=== PATIENT | female | born 1955 | race African-American/Black ===

== ENCOUNTER 2018-09-18 11:41 | Inpatient (IN) | payer OTHER ==
--- NOTE | 2018-09-18 16:02 | PDOC ---
History of Present Illness - General Chief Complaint: Weakness Stated Complaint: WEAKNESS, DARK URINE, ABD PAIN 1 MONTH Time Seen by Provider: 09/18/18 15:59 - History of Present Illness Initial Comments: 09/18/18 16:01 63 year old woman with a history of asthma, rzj-woejlit-iomteikeu diabetes, HLD and RSD diagnosed > 10 years ago with upper and lower progressive extremity weakness who presents with worsening ability to ambulate over 1month. Per the patient has been stumbling with gait worsening over the past 4 months and he "got sick of seeing her like that." The patient is planning to see her PCP Dr. Medina in November. The patient denies chest pain, shortness of breath, recent travel, recent illness, dysuria, hematuria, abdominal pain. The patient has no other complaints at bedside. PCP: Adam Past History - Past Medical History Allergies/Adverse Reactions: Allergies Allergy/AdvReac Type Severity Reaction Status Date / Time egg [Egg] Allergy Verified 09/18/18 11:47 oxycodone [Oxycodone] Allergy Verified 09/18/18 11:47 Eggs Allergy Uncoded 09/18/18 11:47 Home Medications: Ambulatory Orders Metformin HCl [Glucophage] 500 mg PO BID #0 tablet 11/16/11 Tizanidine HCl [Zanaflex (Nf) -] 4 mg PO TID #0 tablet 11/16/11 Amitriptyline HCl [Elavil -] 50 mg PO DAILY 09/18/18 Cetirizine HCl [All Day Allergy] 10 mg PO DAILY 09/18/18 Simvastatin 40 mg PO DAILY 09/18/18 Pregabalin [Lyrica -] 150 mg PO BID 09/20/18 Asthma: Yes COPD: No Diabetes: Yes Hypercholesterolemia: Yes - Surgical History Neurologic Surgery: Yes (neural stim. removed 3years) - Suicide/Smoking/Psychosocial Hx Smoking Status: No Smoking History: Current every day smoker Have you smoked in the past 12 months: Yes Number of Cigarettes Smoked Daily: 10 Information on smoking cessation initiated: Yes Hx Alcohol Use: No Drug/Substance Use Hx: No Substance Use Type: None Hx Substance Use Treatment: No *Physical Exam - Vital Signs Last Vital Signs Temp Pulse Resp BP Pulse Ox 97.6 F 93 H 19 115/67 96 09/18/18 11:43 09/18/18 11:43 09/18/18 11:43 09/18/18 11:43 09/18/18 11:43 - Physical Exam Comments: 09/18/18 17:23 GENERAL: Awake, alert, and fully oriented, in no acute distress HEAD: No signs of trauma, normocephalic, atraumatic EYES: PERRLA, EOMI, sclera anicteric, conjunctiva clear ENT: oropharynx clear without exudates. Moist mucosa, + slight tongue fasciulations notes NECK: Normal ROM, supple LUNGS: No distress, speaks full sentences, clear to auscultation bilaterally HEART: Regular rate and rhythm, normal S1 and S2, no murmurs, rubs or gallops, peripheral pulses normal and equal bilaterally. ABDOMEN: Soft, nontender, normoactive bowel sounds. No guarding, no rebound. No masses, distended but baseline per patient EXTREMITIES : Normal inspection, Normal range of motion, no edema. No clubbing or cyanosis. decreased muscle tone in upper extremities L > R and slightly decreased in lower extremities, nontender to palpation 2/5 strength throughout, 2+ reflexes, no DTR in R patellar, pronator drift R > L stumbling gait with inability to hold herself without assistance of NEUROLOGICAL: Cranial nerves II through XII grossly intact. Normal speech, no focal sensorimotor deficits SKIN: Warm, Dry, normal turgor, no rashes or lesions noted Moderate Sedation - Procedure Monitoring Vital Signs: Procedure Monitoring Vital Signs Temperature 97.6 F 09/18/18 11:43 Pulse Rate 93 H 09/18/18 11:43 Respiratory Rate 19 09/18/18 11:43 Blood Pressure 115/67 09/18/18 11:43 O2 Sat by Pulse Oximetry (%) 96 09/18/18 11:43 ED Treatment Course - LABORATORY CBC & Chemistry Diagram: 09/28/18 06:30 09/28/18 06:30 Medical Decision Making - Medical Decision Making 09/18/18 17:15 63 year old woman with a history of asthma, bnr-kzsjith-bvdqphshg diabetes, HLD and RSD diagnosed > 10 years ago with upper and lower progressive extremity weakness who presents with worsening ability to ambulate over 1month. Per the patient has been stumbling with gait and he "got sick of seeing her like that." The patient is planning to see her PCP Dr. Medina in November. The patient denies chest pain, shortness of breath, recent travel, recent illness, dysuria, hematuria, abdominal pain. The patient has no other complaints at bedside. ED Course: Consider RSD however typically associated with pain/burning symptom which the patient does not complain of. ALS possible although progression of symptoms inconsistent and patient without difficulties with speaking and swallowing. Mysthenia gravis guillian barre statin rhabdomyolysis psychogenic cbc, cmp, trop, ekg, ck, ua, ucx labwork unremarkable Spoke to Dr. Campuzano who agrees with LP and head CT. Rec consult to [place]. Patient admitted to medicine. 09/18/18 19:18 Dr. Colón contacted will come see patient in AM *DC/Admit/Observation/Transfer Diagnosis at time of Disposition: Weakness - Referrals - Patient Instructions - Post Discharge Activity
--- NOTE | 2018-09-18 16:21 | PDOC ---
Attending Attestation - HPI HPI: 09/18/18 18:22 The patient is a 63 year old female with a past medical history of asthma, non insulin dependent diabetes, HLD, and RSD here today for evaluation of worsening lower extremity weakness. The patients reports that her lower extremity weakness has been going on for a while but has been getting worse in the past 3-4 months. The patient reports that her right leg weakness causes her to stumble and lose balance and is unable to walk long distances. She also notes occasional abdominal cramping and dark urine which is now bright. Patient denies headache, lightheadedness. Denies fever, chills. Denies chest pain, shortness of breath. Denies nausea, vomiting, diarrhea. Denies lower extremity edema. Allergies: egg, oxycodone PCP: Kan Medina - Medical Decision Making 09/18/18 18:22 Documentation prepared by MARCO A Jain, acting as medical dermatologist for Maxwell Cummings MD. <Yeyo Stone - Last Filed: 09/18/18 18:22> - Resident Resident Name: Laura Conte - ED Attending Attestation I have performed the following: I have examined & evaluated the patient, The case was reviewed & discussed with the resident, I agree w/resident's findings & plan, Exceptions are as noted - Physicial Exam PE: 09/18/18 20:40 Patient is awake and alert, frail-appearing, Normocephalic and atraumatic PERRLA, EOMI, + Tongue fasciculations cta rrr Extensive muscle wasting of the extremities (distal greater than proximal) Cranial nerves II through XII grossly intact; Motor: 4/5 upper extremities bilaterally with weak hand concrete carpenter bilaterally; right upper extremity pronation drift; Right lower extremity: 2/5, with minimal plantar/dorsiflexion of the right foot; left lower extremity: 3/ 5; Babinski untestable on the right, negative on the left; DTRs: decreased b/l - Medical Decision Making 09/18/18 21:03 Patient 63-year-old female who presents with worsening upper and lower extremity weakness for the past 4 months. Physical exam reveals muscle wasting and diffuse weakness which is more pronounced on the right. Decreased DTRs are also noted. CT of head shows no evidence of acute intercranial pathology. Patient may have a chronic demyelinating disease. Will consult neurology. Will order vitamin B-12 level and RPR. There is no indication for emergent MRI or LP at this time all the patient may require additional studies while in patient. <Maxwell Cummings - Last Filed: 09/18/18 21:04>
[2018-09-18 17:04] LABS: BASO % 0.9 % (0-2.0); EOS % 2.7 % (0-4.5); HEMATOCRIT 40.3 % (32.4-45.2); HEMOGLOBIN 14.1 GM/dL (10.7-15.3); LYMPH % 27.4 % (8-40); MCH 30.1 pg (25.7-33.7); MCHC 34.9 g/dl (32.0-36.0); MEAN CELL VOLUME 86.3 fl (80-96); MEAN PLT VOLUME 9.3 fl (7.5-11.1); MONO % 8.1 % (3.8-10.2); NEUT % 60.9 % (42.8-82.8); PLATELET COUNT 231 K/MM3 (134-434); RBC 4.68 M/mm3 (3.60-5.2); RDW 13.8 % (11.6-15.6)
[2018-09-18 18:07] LABS: ALK PHOS 93 U/L (45-117); ANION GAP 8 MMOL/L (8-16); BILIRUBIN,TOTAL 0.3 mg/dL (0.2-1); BLOOD UREA NITROGEN 20 mg/dL (7-18); CALCIUM 9.2 mg/dL (8.5-10.1); CHLORIDE 106 mmol/L (98-107); CO2 25 mmol/L (21-32); CREATININE 0.8 mg/dL (0.55-1.3); GLUCOSE,RANDOM 172 mg/dL (74-106); POTASSIUM 4.1 mmol/L (3.5-5.1); SGOT/AST 16 U/L (15-37); SGPT/ALT 36 U/L (13-61); SODIUM 138 mmol/L (136-145); TOT PROT 7.7 g/dl (6.4-8.2)
[2018-09-18] MEDS ORDERED: SODIUM CHLORIDE 1,000 ML IV STA (18:38)
[2018-09-18 21:59] LABS: URINE APPEARANCE TURBID; URINE BILIRUBIN NEGATIVE (<2.0 mg/dL); URINE COLOR DKYELLOW; URINE GLUCOSE (UA) 1+ (NEGATIVE); URINE KETONE NEGATIVE (NEGATIVE); URINE LEUK ESTERASE 3+ (NEGATIVE); URINE NITRITE POSITIVE (NEGATIVE); URINE PROTEIN 2+ (NEGATIVE)
[2018-09-18 22:05] LABS: EPI CELLS MANY /HPF (FEW); URINE BACTERIA MODERATE /hpf (NONE SEEN); URINE MUCUS MANY
[2018-09-19] MEDS ORDERED: CEFTRIAXONE 1,000 MG in DEXTROSE 5%-WATER - 50 ML IVPB ONE (01:10)
[2018-09-19] MEDS ORDERED: CEFTRIAXONE 1 GM/50 ML BAG ONE (01:12)
[2018-09-19] MEDS ORDERED: AMITRIPTYLINE HCL 50 MG TABLET PO SCH (02:45)
[2018-09-19] MEDS: DEXTROSE 5%-0.45% SALINE 1,000 ML IV SCH (03:18)
[2018-09-19] MEDS: TIZANIDINE HCL 4 MG TABLET PO SCH ×3 (06:06→21:59)
[2018-09-19 06:20] LABS: BASO % 0.8 % (0-2.0); EOS % 2.4 % (0-4.5); HEMATOCRIT 40.4 % (32.4-45.2); HEMOGLOBIN 12.8 GM/dL (10.7-15.3); LYMPH % 27.5 % (8-40); MCH 27.9 pg (25.7-33.7); MCHC 31.7 g/dl (32.0-36.0); MEAN PLT VOLUME 9.6 fl (7.5-11.1); MONO % 9.9 % (3.8-10.2); NEUT % 59.4 % (42.8-82.8); PLATELET COUNT 207 K/MM3 (134-434); RBC 4.59 M/mm3 (3.60-5.2); RDW 13.8 % (11.6-15.6); WHITE BLOOD COUNT 7.3 K/mm3 (4.0-10.0)
[2018-09-19 06:53] LABS: ALBUMIN 3.5 g/dl (3.4-5.0); ALK PHOS 83 U/L (45-117); ANION GAP 5 MMOL/L (8-16); BILIRUBIN,TOTAL 0.2 mg/dL (0.2-1); BLOOD UREA NITROGEN 20 mg/dL (7-18); CALCIUM 8.5 mg/dL (8.5-10.1); CHLORIDE 109 mmol/L (98-107); CO2 25 mmol/L (21-32); CREATININE 0.7 mg/dL (0.55-1.3); GLUCOSE,RANDOM 167 mg/dL (74-106); POTASSIUM 4.4 mmol/L (3.5-5.1); SGOT/AST 21 U/L (15-37); SGPT/ALT 36 U/L (13-61); SODIUM 138 mmol/L (136-145)
[2018-09-19] MEDS ORDERED: metFORMIN HCL 500 MG TABLET (FP) ONE (08:39)
[2018-09-19] MEDS ORDERED: INSULIN REGULAR HUMAN 100 UNITS/ML *VIAL ONE (08:40)
[2018-09-19] MEDS: INSULIN SLIDING SCALE (NOVOLOG) 1 VIAL SQ SCH ×4 (08:43→21:57)
[2018-09-19] MEDS: metFORMIN HCL 500 MG TABLET (FP) PO SCH ×2 (08:43→18:06)
[2018-09-19] MEDS ORDERED: PREGABALIN 50 MG CAPSULE PO SCH (10:00)
[2018-09-19] MEDS: LORATADINE 10 MG TABLET PO SCH (10:09)
[2018-09-19] MEDS: AMITRIPTYLINE HCL 25 MG TABLET (FP) PO SCH (10:10)
--- NOTE | 2018-09-19 12:46 | EKG ---
Test Reason : Blood Pressure : / mmHG Vent. Rate : 077 BPM Atrial Rate : 077 BPM P-R Int : 152 ms QRS Dur : 088 ms QT Int : 370 ms P-R-T Axes : 055 031 010 degrees QTc Int : 418 ms NORMAL SINUS RHYTHM MINIMAL VOLTAGE CRITERIA FOR LVH, MAY BE NORMAL VARIANT BORDERLINE ECG WHEN COMPARED WITH ECG OF 12-NOV-2011 16:40, ST NO LONGER DEPRESSED IN INFERIOR LEADS ST NO LONGER DEPRESSED IN LATERAL LEADS T WAVE INVERSION LESS EVIDENT IN INFERIOR LEADS Confirmed by ROBERTO MUSTAFA MD ([id number]) on 09/19/2018 12:46:30 PM Referred By: Confirmed By:ROBERTO MUSTAFA MD
--- NOTE | 2018-09-19 17:33 | HP ---
Admitting History and Physical - Admission History of Present Illness: 63 year old woman with a history of asthma, fmz-awabozc-mqfsjibry diabetes, HLD and RSD diagnosed > 10 years ago with upper and lower progressive extremity weakness who presents with worsening ability to ambulate over 1month. Per the patient has been stumbling with gait worsening over the past 4 months and he "got sick of seeing her like that." The patient is planning to see her PCP Dr. Medina in November. The patient denies chest pain, shortness of breath, recent travel, recent illness, dysuria, hematuria, abdominal pain. The patient has no other complaints at bedside. - Smoking History Smoking history: Current every day smoker Have you smoked in the past 12 months: Yes Aproximately how many cigarettes per day: 10 - Alcohol/Substance Use Hx Alcohol Use: No Home Medications - Allergies Allergies/Adverse Reactions: Allergies Allergy/AdvReac Type Severity Reaction Status Date / Time egg [Egg] Allergy Verified 09/18/18 11:47 oxycodone [Oxycodone] Allergy Verified 09/18/18 11:47 Eggs Allergy Uncoded 09/18/18 11:47 - Home Medications Home Medications: Ambulatory Orders Metformin HCl [Glucophage] 500 mg PO BID #0 tablet 11/16/11 Tizanidine HCl [Zanaflex (Nf) -] 4 mg PO TID #0 tablet 11/16/11 Amitriptyline HCl [Elavil -] 50 mg PO DAILY 09/18/18 Cetirizine HCl [All Day Allergy] 10 mg PO DAILY 09/18/18 Simvastatin 40 mg PO DAILY 09/18/18 Pregabalin [Lyrica -] 150 mg PO BID 09/20/18 Physical Examination Vital Signs: Vital Signs Temperature 98.1 F 09/19/18 15:52 Pulse Rate 84 09/19/18 15:52 Respiratory Rate 18 09/19/18 15:52 Blood Pressure 151/76 09/19/18 15:52 O2 Sat by Pulse Oximetry (%) 100 09/19/18 15:50 Labs: CBC, BMP 09/19/18 05:30 09/19/18 05:30
--- NOTE | 2018-09-19 18:53 | CONS ---
DATE OF CONSULTATION: 09/19/2018 HISTORY OF PRESENT ILLNESS: The patient is a 73-year-old woman who is known from prior admission to [facility] undergoing electrodiagnostic studies back on October 03, 2017, which were extremely limited due to edema. The patient did have some myopathic recruitment and muscle membrane instability, which with fairly normal sensory conduction, considering the edema. Patient states in the interim she did not undergo any muscle biopsy, but was doing much better until recently. Per her , she has been having declining function for some time. She notices tightness as well as progressive weakness and has difficulty standing and ambulating. She was taken to [facility], undergoing CT of the head, which showed no acute intracranial pathology. The patient has a normal B12 level and her blood work shows slightly elevated BUN to creatinine, but is fairly normal in terms of CBC as well as her electrolytes. She has a normal TSH. Patient is having extreme difficulty getting up and ambulating. Electrodiagnostic studies were ordered due to the progressive weakness. Again, previous studies were from about a year ago on October 03. Per the , she has fallen multiple times at home. Last CBC on September 19 showed a normal WBC at 7.3, hemoglobin 12.8, platelet count 208. Her chemistries showed elevated BUN of 20, creatinine of 0.7, but normal CO2 of 25. Normal sodium at 138, normal potassium at 4.4. TSH was normal at 1.21. Vitamin B12 was normal at 513. PAST MEDICAL AND SURGICAL HISTORY: Noninsulin-dependent diabetes, hyperlipidemia, RSD, asthma. SOCIAL HISTORY: Lives with her . Premorbidly she was ambulatory, but refuses to use a walker. Sometimes she uses a cane, but is extremely unsteady. REVIEW OF SYSTEMS: No headache. No lightheadedness, dizziness. No blurry vision or double vision. No nausea or vomiting, difficulty swallowing, difficulty chewing. No chest pain or shortness of breath. She has abdominal bloating, frequent urination, which may be due to IV fluid hydration. She complains of numbness and tingling in the hands, but this may be more of a tightness. She has progressive weakness. PHYSICAL EXAMINATION: General: Friendly woman, seen sitting, standing, and ambulating. She is in no acute distress. HEENT: Normocephalic, atraumatic. Extraocular muscles appear intact. Neck: Supple. Abdomen: Swollen, may be possible ascites. Extremities: Without any pitting edema or calf tenderness. Neuromuscular: She has diffuse weakness, but normal sensation. Her gait is steppage and is extremely unsteady, improved with a rolling walker. For results of EMG nerve conduction studies, please refer to the report for details. OVERALL IMPRESSION: 1. This study was compared to previous study dated October 03, 2017. 2. Compared to that study, this study is significantly improved, both in sensory and motor amplitudes as well as resolution of previously noted muscle membrane instability. 3. That being said, there is some myopathic motor units in the proximal, upper more than lower extremities, which could be significant for myopathy. However, the clinical picture does not match this diagnosis, would rule out NUTRITION SERVICES WORKER disorders. 4. Gait disorder. 5. History of diabetes. PLAN/SUGGESTION: 1. Would consider neurologic evaluation. 2. Consider imaging of the brain such as MRI of the brain and cervical and thoracic spines. 3. Physical therapy. 4. DVT prophylaxis until more mobile. 5. Will need either inpatient or extensive outpatient therapy if services can be obtained for home. Thank you for this referral. YUKI CÁRDENAS M.D. [id number] MTDD
--- NOTE | 2018-09-19 21:54 | CONSULT ---
Consult - text type - Consultation Consultation Note: NEUROLOGY CONSULTATION is greatly appreciated: This 63 yo RH woman with h/o DM and Chol is maintained on: Metformin; Pregabalin 50 qd; Tizanidine 4 mg PO TID; Amitriptyline 50 mg PO HS ; Cetirizine; and Simvastatin 40 mg. She relates h/o slowly progressive gait dysfunction since 2000 with numbness, tingling, pain, and coldness in her hands and feet. Has had an electric wheelchair to "go out" since 2005 but has "managed" around her apartment until the last 3-4 weeks. Few years of progressive urinary frequency. Dr. Enrique's consultation and electrodiagnostic studies reviewed and appreciated. Admission labs sig for CK=64 IU and urinary QTW=0511. CT of head (reviewed): Normal ONEL: Nl neck ROM. Normocephalic. NEURO: MS/speech: Normal CN II-XII Normal including tongue strength and bulk. Gag normal. Motor: Isolated weakness and severe atrophy of the right triceps and finger extensors (2/5) and right hip flexors (2/5). The remainder of muscles tested (proximal and distal) are normal or near normal (4+/5-5/5). Increased tone in legs (R>L) with extremely brisk reflexes except triceps (absent on the R reduced on the left). Biceps spreads to finger flexors. Crossed adduction at the knees. Brisk AJ's. Bilateral Babinskis. Coord: No FTN dystaxia Sensory: Reduced vibration and position in both legs (L>>R). Romberg + Gait: B/L circumduction R>>L. IMP: Cervical Myelopathy. Probably around the C6, C7 level with C7 Radiculopathy on the right. R/O Cervical syrinx. Spastic paraparesis Neurogenic bladder. Recent worsening due to Toxic-metabolic encephalopathy due to UTI. SUGGEST: MRI of Cervical spine (C-/C+) Check B12, SAMUEL, ESR, CRP, HTLV-1 Please continue antibiotics for UTI. Bladder Ultrasound. Thank you very much, Shadi Colón MD
[2018-09-19] MEDS: ATORVASTATIN CA 20 MG TABLET (FP) PO SCH (21:58)
[2018-09-19] MEDS ORDERED: PREGABALIN 100 MG CAPSULE PO ONE (22:15)
[2018-09-19] MEDS ORDERED: cefTRIAXone SODIUM 1 GM VIAL ONE (22:57)
[2018-09-19] MEDS ORDERED: DEXTROSE 5%-WATER - 50 ML IVPB ONE (22:57)
[2018-09-19] MEDS: CEFTRIAXONE 1 GM in DEXTROSE 5%-WATER - 50 ML IVPB SCH (23:02)
[2018-09-19] MEDS ORDERED: ACETAMINOPHEN 325 MG TABLET (FP) PO ONE (23:30)
[2018-09-20] MEDS: DEXTROSE 5%-0.45% SALINE 1,000 ML IV SCH ×2 (02:41→17:00)
[2018-09-20] MEDS: TIZANIDINE HCL 4 MG TABLET PO SCH ×3 (05:52→21:35)
[2018-09-20] MEDS: INSULIN SLIDING SCALE (NOVOLOG) 1 VIAL SQ SCH ×4 (06:04→21:33)
[2018-09-20] MEDS: metFORMIN HCL 500 MG TABLET (FP) PO SCH ×2 (06:05→16:59)
[2018-09-20 08:39] LABS: ALBUMIN 3.4 g/dl (3.4-5.0); ALK PHOS 80 U/L (45-117); ANION GAP 6 MMOL/L (8-16); BILIRUBIN,TOTAL 0.2 mg/dL (0.2-1); BLOOD UREA NITROGEN 13 mg/dL (7-18); CALCIUM 8.5 mg/dL (8.5-10.1); CHLORIDE 106 mmol/L (98-107); CO2 26 mmol/L (21-32); CREATININE 0.7 mg/dL (0.55-1.3); GLUCOSE,RANDOM 157 mg/dL (74-106); POTASSIUM 3.8 mmol/L (3.5-5.1); SGOT/AST 20 U/L (15-37); SGPT/ALT 34 U/L (13-61); SODIUM 137 mmol/L (136-145); TOT PROT 6.8 g/dl (6.4-8.2)
[2018-09-20] MEDS ORDERED: cefTRIAXone SODIUM 1 GM VIAL ONE (08:48)
[2018-09-20] MEDS ORDERED: DEXTROSE 5%-WATER - 50 ML IVPB ONE (08:48)
[2018-09-20] MEDS ORDERED: PT OWN MED DRAWER 7, Y5N ONE (08:48)
[2018-09-20 09:18] LABS: BASO % 0.5 % (0-2.0); EOS % 2.9 % (0-4.5); HEMOGLOBIN 12.3 GM/dL (10.7-15.3); LYMPH % 36.9 % (8-40); MCH 28.1 pg (25.7-33.7); MCHC 32.3 g/dl (32.0-36.0); MEAN CELL VOLUME 87.1 fl (80-96); MEAN PLT VOLUME 10.4 fl (7.5-11.1); MONO % 9.7 % (3.8-10.2); PLATELET COUNT 144 K/MM3 (134-434); RBC 4.36 M/mm3 (3.60-5.2); RDW 13.2 % (11.6-15.6); WHITE BLOOD COUNT 5.9 K/mm3 (4.0-10.0)
[2018-09-20 09:49] LABS: ERYTHROCYTE SEDIMENTATION RATE 14 mm/hr (0-30)
[2018-09-20] MEDS: AMITRIPTYLINE HCL 25 MG TABLET (FP) PO SCH (09:51)
[2018-09-20] MEDS: LORATADINE 10 MG TABLET PO SCH (09:51)
[2018-09-20] MEDS: PREGABALIN 75 MG CAPSULE PO SCH ×2 (09:51→21:35)
[2018-09-20] MEDS: CEFTRIAXONE 1 GM in DEXTROSE 5%-WATER - 50 ML IVPB SCH (09:51)
[2018-09-20] MEDS: ATORVASTATIN CA 20 MG TABLET (FP) PO SCH (21:35)
[2018-09-20] MEDS ORDERED: ACETAMINOPHEN 325 MG TABLET (FP) PO ONE (21:45)
--- NOTE | 2018-09-20 22:23 | PN ---
Progress Note, Physician - Current Medication List Current Medications: Active Medications Amitriptyline HCl (Elavil -) 50 mg PO DAILY [facility] Last Admin: 09/20/18 09:51 Dose: 50 mg Atorvastatin Calcium (Lipitor -) 20 mg PO HS [facility] Last Admin: 09/20/18 21:35 Dose: 20 mg Ceftriaxone Sodium 1 gm/ (Dextrose) 50 mls @ 100 mls/hr IVPB DAILY [facility]; Protocol Last Admin: 09/20/18 09:51 Dose: 100 mls/hr Insulin Aspart (Novolog Vial Sliding Scale -) 1 vial SQ ACHS [facility]; Protocol Last Admin: 09/20/18 21:33 Dose: Not Given Loratadine (Claritin -) 10 mg PO DAILY [facility] Last Admin: 09/20/18 09:51 Dose: 10 mg Metformin HCl (Glucophage -) 500 mg PO BIDAC [facility] Last Admin: 09/20/18 16:59 Dose: 500 mg Pregabalin (Lyrica -) 150 mg PO BID [facility] Last Admin: 09/20/18 21:35 Dose: 150 mg Tizanidine HCl (Tizanidine Hcl) 4 mg PO TID [facility] Last Admin: 09/20/18 21:35 Dose: 4 mg - Objective Vital Signs: Vital Signs Temperature 98.0 F 09/20/18 14:16 Pulse Rate 84 09/20/18 14:16 Respiratory Rate 16 09/20/18 14:16 Blood Pressure 164/62 09/20/18 14:16 O2 Sat by Pulse Oximetry (%) 100 09/20/18 09:00 Labs: CBC, BMP 09/20/18 06:30 09/20/18 06:30
[2018-09-21] MEDS: TIZANIDINE HCL 4 MG TABLET PO SCH ×3 (06:04→22:08)
[2018-09-21] MEDS: INSULIN SLIDING SCALE (NOVOLOG) 1 VIAL SQ SCH ×4 (06:04→22:09)
[2018-09-21] MEDS: metFORMIN HCL 500 MG TABLET (FP) PO SCH ×2 (06:04→18:16)
[2018-09-21] MEDS ORDERED: cefTRIAXone SODIUM 1 GM VIAL ONE (09:58)
[2018-09-21] MEDS ORDERED: DEXTROSE 5%-WATER - 50 ML IVPB ONE (09:58)
[2018-09-21] MEDS: PREGABALIN 75 MG CAPSULE PO SCH ×2 (10:00→22:07)
[2018-09-21] MEDS: LORATADINE 10 MG TABLET PO SCH (10:01)
[2018-09-21] MEDS: CEFTRIAXONE 1 GM in DEXTROSE 5%-WATER - 50 ML IVPB SCH (10:01)
[2018-09-21] MEDS: AMITRIPTYLINE HCL 25 MG TABLET (FP) PO SCH (10:09)
[2018-09-21] MEDS ORDERED: PT OWN MED DRAWER 7, Y5N ONE ×2 (10:09→20:38)
[2018-09-21] MEDS: DEXAMETHASONE SOD PHOSPHATE 4 MG/1 ML VIAL IVPB SCH ×2 (18:16→22:08)
--- NOTE | 2018-09-21 19:12 | PN ---
Progress Note, Physician - Current Medication List Current Medications: Active Medications Amitriptyline HCl (Elavil -) 50 mg PO DAILY [facility] Last Admin: 09/21/18 10:09 Dose: 50 mg Atorvastatin Calcium (Lipitor -) 20 mg PO HS [facility] Last Admin: 09/20/18 21:35 Dose: 20 mg Dexamethasone Sodium Phosphate (Decadron Injection -) 6 mg IVPB Q6H-IV [facility] Last Admin: 09/21/18 18:16 Dose: 6 mg Ceftriaxone Sodium 1 gm/ (Dextrose) 50 mls @ 100 mls/hr IVPB DAILY [facility]; Protocol Last Admin: 09/21/18 10:01 Dose: 100 mls/hr Insulin Aspart (Novolog Vial Sliding Scale -) 1 vial SQ ACHS [facility]; Protocol Last Admin: 09/21/18 18:21 Dose: Not Given Loratadine (Claritin -) 10 mg PO DAILY [facility] Last Admin: 09/21/18 10:01 Dose: 10 mg Metformin HCl (Glucophage -) 500 mg PO BIDAC [facility] Last Admin: 09/21/18 18:16 Dose: 500 mg Pregabalin (Lyrica -) 150 mg PO BID [facility] Last Admin: 09/21/18 10:00 Dose: 150 mg Tizanidine HCl (Tizanidine Hcl) 4 mg PO TID [facility] Last Admin: 09/21/18 13:38 Dose: 4 mg - Objective Vital Signs: Vital Signs Temperature 97.7 F 09/21/18 09:00 Pulse Rate 70 09/21/18 09:00 Respiratory Rate 18 09/21/18 09:00 Blood Pressure 132/64 09/21/18 09:00 O2 Sat by Pulse Oximetry (%) 95 09/21/18 09:00 Constitutional: Yes: No Distress HENT: Yes: Atraumatic Neck: Yes: Supple Cardiovascular: Yes: Regular Rate and Rhythm Respiratory: Yes: CTA Bilaterally Gastrointestinal: Yes: Normal Bowel Sounds Extremities: Yes: WNL Edema: No Peripheral Pulses WNL: Yes Neurological: Yes: Alert, Oriented Labs: CBC, BMP 09/20/18 06:30 09/20/18 06:30 Problem List - Problems (1) Weakness Assessment/Plan: PHYSICAL THERAPY WAITING NEUROSURGERY CONSULT MRI REPORT REVIEWED Code(s): R53.1 - WEAKNESS (2) Hip pain, bilateral Code(s): M25.551 - PAIN IN RIGHT HIP; M25.552 - PAIN IN LEFT HIP (3) UTI (urinary tract infection) Assessment/Plan: IV ABX CXS NOTED Code(s): N39.0 - URINARY TRACT INFECTION, SITE NOT SPECIFIED Assessment/Plan COVERING FOR
--- NOTE | 2018-09-21 20:06 | PN ---
Progress Note (short form) - Note Progress Note: NEUROSURGERY CONSULT DICTATED Consulted by Dr Vidales h/o DM and hypercholesterolemia has h/o slowly progressive gait dysfunction since 2000 with numbness, tingling, pain, ataxia, and coldness in her hands and feet. Has had an electric wheelchair since 2005 but worsened the past few months. + Losing hand functions/dexterity; worsening neck pain with mid/low back stiffness. Few years of progressive urinary frequency and periodic incontinence. Better since being on decadron since hospitalized. Able to sit up better and urinate better. Less neck pain. EMG done but report not available to me. PE: AF, VSS General- unremarkable CN- intact; Motor- B Deltoid 4+, B hands 1-2, B B/BR/T 3/5 L sided slightly stronger; R LE 2, L LE 4+; Sensation- decreased LT/PP R arm down to leg, decreased distal R > L LE vibratory sensation; DTR- 2+ except decreased R ankle reflex, + R Irene's. MRI C spine- moderate to marked stenosis with osteophyte and calcified disc R > L with moderate cord impingement, broad based disc bulge C4-5 with mild cord impingement; C5-6 R paracentral disc herniation with moderate cord impingement and moderate to marked stenosis; L > R chronic DDD/marked stenosis with cord impingement; myelomalacia C3-4 to C7 most prominent @ C4. Cervical DDD/HNP/osteophytes with marked stenosis and myelomalacia with resultant chronic progressive myelopathy Candidate for multilevel anterior decompression, partial corpectomies, interbody fusion with instrumentation C3-7; may need future posterior decompression Prognosis fair only since pt has been markedly symptomatic since at least 2005 and there is no guarantee of favorable outcome Operative and postop care discussed Pros and cons, potential risks and benefits discussed If surgery is desired pt must quit smoking and have DM under strict control if she is to have any chance of healing the fusion properly Monitor BS and treat accordingly since pt is on steroid All questions answered
[2018-09-21] MEDS: ATORVASTATIN CA 20 MG TABLET (FP) PO SCH (22:07)
[2018-09-22] MEDS: DEXAMETHASONE SOD PHOSPHATE 4 MG/1 ML VIAL IVPB SCH ×4 (03:06→21:32)
[2018-09-22] MEDS: TIZANIDINE HCL 4 MG TABLET PO SCH ×3 (06:21→21:39)
[2018-09-22] MEDS: INSULIN SLIDING SCALE (NOVOLOG) 1 VIAL SQ SCH ×4 (06:21→21:35)
[2018-09-22] MEDS: metFORMIN HCL 500 MG TABLET (FP) PO SCH ×2 (06:21→17:14)
[2018-09-22] MEDS ORDERED: cefTRIAXone SODIUM 1 GM VIAL ONE (09:14)
[2018-09-22] MEDS ORDERED: DEXTROSE 5%-WATER - 50 ML IVPB ONE (09:14)
[2018-09-22] MEDS: CEFTRIAXONE 1 GM in DEXTROSE 5%-WATER - 50 ML IVPB SCH (09:19)
[2018-09-22] MEDS: LORATADINE 10 MG TABLET PO SCH (09:19)
[2018-09-22] MEDS: PREGABALIN 75 MG CAPSULE PO SCH ×2 (09:19→21:33)
[2018-09-22] MEDS ORDERED: PT OWN MED DRAWER 7, Y5N ONE ×2 (09:26→13:30)
[2018-09-22] MEDS: AMITRIPTYLINE HCL 25 MG TABLET (FP) PO SCH (09:28)
--- NOTE | 2018-09-22 12:59 | PN ---
Progress Note (short form) - Note Progress Note: Neurology NEUROLOGY COVERAGE FOR DR. CURRAN 63 y/o F with extensive medical background as documented previously. Yesterday, contacted by radiologist for "critical value" regarding MRI C spine results. Discussed with him and contacted nurse. Started patient on decadron as concern for cord compression and signficant stenosis. NSGY consult requested from Dr. Stephen Rowe, note reviewed and appreciated. Dr. Rowe offered surgical intervention, discussed with patient and this AM at bedside and they are considering options, defer to NSGY regarding intervention. Patient appreciative of management. Active Medications Amitriptyline HCl (Elavil -) 50 mg PO DAILY [facility] Last Admin: 09/22/18 09:28 Dose: 50 mg Atorvastatin Calcium (Lipitor -) 20 mg PO HS [facility] Last Admin: 09/21/18 22:07 Dose: 20 mg Dexamethasone Sodium Phosphate (Decadron Injection -) 6 mg IVPB Q6H-IV [facility] Last Admin: 09/22/18 09:19 Dose: 6 mg Ceftriaxone Sodium 1 gm/ (Dextrose) 50 mls @ 100 mls/hr IVPB DAILY [facility]; Protocol Last Admin: 09/22/18 09:19 Dose: 100 mls/hr Insulin Aspart (Novolog Vial Sliding Scale -) 1 vial SQ ACHS [facility]; Protocol Last Admin: 09/22/18 12:15 Dose: 8 unit Loratadine (Claritin -) 10 mg PO DAILY [facility] Last Admin: 09/22/18 09:19 Dose: 10 mg Metformin HCl (Glucophage -) 500 mg PO BIDAC [facility] Last Admin: 09/22/18 06:21 Dose: 500 mg Pregabalin (Lyrica -) 150 mg PO BID [facility] Last Admin: 09/22/18 09:19 Dose: 150 mg Tizanidine HCl (Tizanidine Hcl) 4 mg PO TID [facility] Last Admin: 09/22/18 06:21 Dose: 4 mg Vital Signs Period Temp Pulse Resp BP Sys/Wong Pulse Ox Last 24 Hr 97.6 F-97.8 F 77-101 20-22 136-160/71-91 95 Gen: Awake, alert, responds to questions Card: RRR, nml S1,S2 Resp: Normal symmetric effort, lungs clear to auscultation Abdomen: Soft, nontender, bowel sounds active Musculoskeletal: Adequate range of motion without significant deformity Head atraumatic and normocephalic CN: PERRL, EOMI intact, no apparent facial droop, no abnormalities in facial sensation, palate elevates, uvula and tongue midline Motor: Atrophy of the right triceps and finger extensors (2/5) and right hip flexors (2/5) Sensory: Reduced sensation to vibration in distal LE Reflexes: 2+ biceps, brachioradialis, patellar, achillies Coordination: Intact on [id number] testing CBCD WBC 5.9 K/mm3 (4.0-10.0) 09/20/18 06:30 RBC 4.36 M/mm3 (3.60-5.2) 09/20/18 06:30 Hgb 12.3 GM/dL (10.7-15.3) 09/20/18 06:30 Hct 38.0 % (32.4-45.2) 09/20/18 06:30 MCV 87.1 fl (80-96) 09/20/18 06:30 MCHC 32.3 g/dl (32.0-36.0) 09/20/18 06:30 RDW 13.2 % (11.6-15.6) 09/20/18 06:30 Plt Count 144 K/MM3 (134-434) D 09/20/18 06:30 MPV 10.4 fl (7.5-11.1) 09/20/18 06:30 CMP Sodium 137 mmol/L (136-145) 09/20/18 06:30 Potassium 3.8 mmol/L (3.5-5.1) 09/20/18 06:30 Chloride 106 mmol/L (98-107) 09/20/18 06:30 Carbon Dioxide 26 mmol/L (21-32) 09/20/18 06:30 Anion Gap 6 MMOL/L (8-16) L 09/20/18 06:30 BUN 13 mg/dL (7-18) 09/20/18 06:30 Creatinine 0.7 mg/dL (0.55-1.3) 09/20/18 06:30 Creat Clearance w eGFR > 60 (>60) 09/20/18 06:30 Random Glucose 157 mg/dL (74-106) H 09/20/18 06:30 Calcium 8.5 mg/dL (8.5-10.1) 09/20/18 06:30 Total Bilirubin 0.2 mg/dL (0.2-1) 09/20/18 06:30 AST 20 U/L (15-37) 09/20/18 06:30 ALT 34 U/L (13-61) 09/20/18 06:30 Alkaline Phosphatase 80 U/L (45-117) 09/20/18 06:30 Total Protein 6.8 g/dl (6.4-8.2) 09/20/18 06:30 Albumin 3.4 g/dl (3.4-5.0) 09/20/18 06:30 CARDIAC ENZYMES Creatine Kinase 64 IU/L (26-192) 09/18/18 16:55 Troponin I < 0.02 ng/ml (0.00-0.05) 09/18/18 16:55 Plan: 63 y/o F with extensive medical background as documented previously. Yesterday, contacted by radiologist for "critical value" regarding MRI C spine results. Discussed with him and contacted nurse. Started patient on decadron as concern for cord compression and signficant stenosis. NSGY consult requested from Dr. Stephen Rowe, note reviewed and appreciated. Dr. Rowe offered surgical intervention, discussed with patient and this AM at bedside and they are considering options, defer to NSGY regarding intervention. Patient appreciative of management. Dr. Curran to follow up in AM, will notify him of updates. Appreciate NSGY consult and insight.
--- NOTE | 2018-09-22 15:10 | CONS ---
DATE OF CONSULTATION: 09/21/2018 CHIEF COMPLAINT: Chronic progressive cervical myelopathy. HISTORY OF PRESENT ILLNESS: The patient is a 63-year-old right-handed female with history of type 2 diabetes and hypercholesterolemia, who complains of chronic neck pain and back spasm. She has had extremity weakness and numbness for at least 12 years. She stated that since 2005, she has been using a scooter for mobilization outside the house. She could generally manage at home. Her pain is in her neck and radiates down to the lower back with associated stiffness and spasm. Her right arm has been weaker than the left, as has her right leg. She has some chronic intermittent urinary incontinence. Her symptoms worsened over the past few months and were especially bad in the last few weeks. She is dropping dishes at home and has lost dexterity and strength in her hands even further. She could even barely sit up well in the past couple days. She was sent to the emergency room and was admitted for further evaluation and treatment. She has a past medical history significant for diabetes, hypercholesterolemia. Current medications include Decadron, ceftriaxone, Lyrica, Elavil, Glucophage, Zanaflex, Lipitor, insulin, and Claritin. Allergies to OXYCODONE. In terms of social history, she smokes cigarettes, about 1 pack a day. She does not drink any alcohol. She denies using recreational drugs currently. She does not work. She lives at home. Family history is noncontributory. Review of systems is otherwise negative for major constitutional, head and neck, cardiovascular, pulmonary, gastrointestinal, genitourinary, endocrinological, neurological, or psychological problem except for the above. PHYSICAL EXAMINATION: Vital Signs: Temperature is 97.8, blood pressure is 148/84, with pulse rate of 77, O2 saturation is 95% on room air. HEENT: Normocephalic, atraumatic. Anicteric. Neck: Supple with no lymphadenopathy, no carotid bruit. Cervical spine flexion is 35 degrees and extension is 15 degrees. Lateral rotation is 40 degrees in each direction. Coronary: Regular rhythm. Lungs: Clear bilaterally. Abdomen: Benign. Extremities: No obvious signs of DVT. Distal pulses are 1+. Neurologic: She is awake and alert, oriented x4. Cranial nerves examination is intact, 2-12. Motor examination shows bilateral deltoids to be 4 to 4+/5. Right biceps, brachioradialis, and triceps are 3/5 and left upper extremity strength is 4/5. Bilateral hands are 1 to 2/5 at best. Entire right lower extremity is approximately 1 to 2/5 and left lower extremity is 4/5. Sensory examination demonstrates decreased light touch and pinprick, distal upper and lower extremity, and right side is number than the left. There is also numbness of the trunk, right greater than left. She has decreased vibratory sensation, more on the right than the left. Deep tendon reflexes show 1 to 2+ reflexes throughout. She has decreased right ankle reflexes. She has a positive right-sided Irene's sign. She has no clonus. Toes are equivocal. Gait is not tested, for safety reasons. The patient was able to sit up by the bedside by herself, with decent truncal support. Laboratory examination shows a white blood cell count of 5.9, hemoglobin 12.9, platelet count 144,000, ESR is 14. Serum sodium is 137, BUN 13, creatinine 0.7. Random glucose was 157. LFTs are normal. CRP is less than 0.3. Urinalysis shows 14 RBC and 1083 WBC, there is 3+ leukocyte esterase, protein is 2+, and glucose is 1+. Urine culture showed E coli and alpha-hemolytic streptococcus. E coli, they were both greater than 100,000 CFU per mL. E coli was sensitive to Bactrim and cephalosporin. CT scan of the cervical spine from November 12, 2011, was reviewed. There was evidence of degenerative disk disease with moderate stenosis at the C3 -4 level on the right, as well as moderate degenerative disk disease on the left side at C6-7 with bridging anterior and posterior osteophytes. There is moderate canal stenosis at C3-4 and C6-7. There is no fracture or spondylolisthesis. MRI of the cervical spine done yesterday demonstrated multilevel cervical degenerative disk disease. There is a chronic right C3-4 paracentral disk protrusion with calcified ligament and bridging osteophyte resulting in marked spinal stenosis, right greater than left. There is broad-based disk bulge at C4-5 with moderate spinal stenosis and thecal sac impingement but no spinal cord compression. There is broad-based disk bulge and protrusion at C5-6 with associated osteophyte. There is also an associated right-sided C5-6 paracentral disk herniation with spinal cord impingement. There is marked stenosis at this level. There is chronic broad-based and predominantly left-sided C6-7 paracentral disk protrusion, which is calcified, with associated osteophytes with marked spinal stenosis at C6-7 level, left greater than right, as well. There are bridging osteophytes anteriorly at C6-7. IMPRESSION: 1. Multi-level cervical degenerative disk disease/protrusion/osteophytes with moderate to marked stenosis at multiple levels from C3-4 to C6-7, as well as myelomalacia, resulting in chronic progressive cervical myelopathy. 2. Diabetes. 3. Hypercholesterolemia. 4. Escherichia coli urinary tract infection. RECOMMENDATIONS: The patient is a has had longstanding neck pain and right greater than left-sided weakness. Her weakness is predominantly in her right lower extremity but also in her distal right upper extremity. She has associated sensory deficit as well. She has a positive right-sided Irene's sign. She has not been able to ambulate well for several years and had been relying on a scooter for mobilization. Her condition had worsened over the past few months and she also has a history of chronic urinary control issues. That likely contributed to the neurogenic bladder and the most ongoing urinary tract infection. She is on IV antibiotic at this time. She completed a course of treatment for such. Unfortunately, the only way of potentially stopping deterioration and hopefully give her some chance of recovery, is an extensive decompressive procedure followed by stabilization from C3 to C7 from an anterior approach. A subsequent posterior decompression may also be needed if anterior decompression alone is not able to take care of her problems adequately. Unfortunately, because of her history of diabetes and smoking, she will likely not heal the fusion well, given this is a 4-level fusion procedure. A postoperatively rigid cervical collar as well as external bone growth stimulator will be contemplated. She will be at high risk for surgery because of her severe spinal cord compression as well as underlying neurological dysfunction, which has worsened over the past few months especially. Her recovery will also be slower because of the chronicity and severity of her neurological problem and deficit. The procedure was explained to her at bedside. The risks of surgery include but are not limited to bleeding, infection, CSF leak, neurological injury, paralysis, loss of bowel and bladder control, hoarseness, swallowing difficulties, nonunion, effusion, adjacent level disease, and other risks of general anesthesia. The risks are higher than usual, as stated earlier. Intraoperative SSEP, EMG, and MEP signals will be monitored. Of course, acute rehabilitation will likely be needed. She is expected to be weaker before she gets stronger again. The patient understands the indication for the procedure, procedure in detail, risks and benefits and alternative treatment for her cervical spine condition. She would like to go home on oral steroids, however. Her blood sugar is anticipated to rise once she is off steroids, for obvious reasons. She cannot remain on steroids for a long extended period of time reasonably given her diabetes. All questions were answered at the bedside. JOSH PERKINS M.D. [id number] MTDDawood
--- NOTE | 2018-09-22 20:46 | PN ---
Progress Note, Physician History of Present Illness: No new complaints - Current Medication List Current Medications: Active Medications Acetaminophen (Tylenol -) 650 mg PO Q6H PRN PRN Reason: pain Amitriptyline HCl (Elavil -) 50 mg PO DAILY [facility] Last Admin: 09/22/18 09:28 Dose: 50 mg Atorvastatin Calcium (Lipitor -) 20 mg PO HS [facility] Last Admin: 09/21/18 22:07 Dose: 20 mg Dexamethasone Sodium Phosphate (Decadron Injection -) 6 mg IVPB Q6H-IV [facility] Last Admin: 09/22/18 14:03 Dose: 6 mg Ceftriaxone Sodium 1 gm/ (Dextrose) 50 mls @ 100 mls/hr IVPB DAILY [facility]; Protocol Last Admin: 09/22/18 09:19 Dose: 100 mls/hr Insulin Aspart (Novolog Vial Sliding Scale -) 1 vial SQ ACHS [facility]; Protocol Last Admin: 09/22/18 17:15 Dose: 8 unit Loratadine (Claritin -) 10 mg PO DAILY [facility] Last Admin: 09/22/18 09:19 Dose: 10 mg Metformin HCl (Glucophage -) 500 mg PO BIDAC [facility] Last Admin: 09/22/18 17:14 Dose: 500 mg Pregabalin (Lyrica -) 150 mg PO BID [facility] Last Admin: 09/22/18 09:19 Dose: 150 mg Tizanidine HCl (Tizanidine Hcl) 4 mg PO TID [facility] Last Admin: 09/22/18 13:31 Dose: 4 mg - Objective Vital Signs: Vital Signs Temperature 97.3 F L 09/22/18 16:25 Pulse Rate 101 H 09/22/18 09:00 Respiratory Rate 20 09/22/18 16:25 Blood Pressure 139/70 09/22/18 16:25 O2 Sat by Pulse Oximetry (%) 95 09/22/18 09:00 Cardiovascular: Yes: WNL, Regular Rate and Rhythm Respiratory: Yes: WNL, Regular, CTA Bilaterally Gastrointestinal: Yes: WNL, Normal Bowel Sounds, Soft Labs: CBC, BMP 09/20/18 06:30 09/20/18 06:30 Problem List - Problems (1) Cord compression Assessment/Plan: Spoke to pt and her at length about surgery They want to speak to neuro(Dr Colón) before making any decision Cont IV decadron wc is going to elevate glucose Will speak to NSG about use of steroids Code(s): G95.20 - UNSPECIFIED CORD COMPRESSION (2) UTI (urinary tract infection) Assessment/Plan: Cont IV ceftriaxone Urine culture (+) for E.Coli and alpha hemolytic strept Code(s): N39.0 - URINARY TRACT INFECTION, SITE NOT SPECIFIED (3) Diabetes Assessment/Plan: Cont sliding scale w/ coverage Increase metformin Check HgA1c in am Steroids are going to increase glucose Code(s): E11.9 - TYPE 2 DIABETES MELLITUS WITHOUT COMPLICATIONS (4) Cervical myelopathy Assessment/Plan: Cont gabapentin Code(s): G95.9 - DISEASE OF SPINAL CORD, UNSPECIFIED
[2018-09-22] MEDS: ATORVASTATIN CA 20 MG TABLET (FP) PO SCH (21:33)
[2018-09-22] MEDS: ACETAMINOPHEN 325 MG TABLET (FP) PO PRN (21:33)
[2018-09-23] MEDS: DEXAMETHASONE SOD PHOSPHATE 4 MG/1 ML VIAL IVPB SCH ×4 (02:17→22:50)
[2018-09-23] MEDS: TIZANIDINE HCL 4 MG TABLET PO SCH ×3 (06:40→22:39)
[2018-09-23] MEDS: metFORMIN HCL 500 MG TABLET (FP) PO SCH ×2 (07:03→18:10)
[2018-09-23] MEDS: INSULIN SLIDING SCALE (NOVOLOG) 1 VIAL SQ SCH ×4 (07:05→22:00)
[2018-09-23 08:22] LABS: BASO % 0.2 % (0-2.0); HEMATOCRIT 41.1 % (32.4-45.2); HEMOGLOBIN 12.9 GM/dL (10.7-15.3); LYMPH % 5.3 % (8-40); MCH 27.5 pg (25.7-33.7); MCHC 31.3 g/dl (32.0-36.0); MEAN CELL VOLUME 87.9 fl (80-96); MEAN PLT VOLUME 10.4 fl (7.5-11.1); MONO % 4.3 % (3.8-10.2); NEUT % 90.2 % (42.8-82.8); PLATELET COUNT 228 K/MM3 (134-434); RBC 4.68 M/mm3 (3.60-5.2); RDW 13.7 % (11.6-15.6); WHITE BLOOD COUNT 17.6 K/mm3 (4.0-10.0)
[2018-09-23 08:37] LABS: ALBUMIN 4.1 g/dl (3.4-5.0); ALK PHOS 89 U/L (45-117); ANION GAP 11 MMOL/L (8-16); BILIRUBIN,TOTAL 0.1 mg/dL (0.2-1); BLOOD UREA NITROGEN 25 mg/dL (7-18); CALCIUM 10.1 mg/dL (8.5-10.1); CHLORIDE 103 mmol/L (98-107); CO2 21 mmol/L (21-32); POTASSIUM 4.3 mmol/L (3.5-5.1); SGOT/AST 9 U/L (15-37); SGPT/ALT 38 U/L (13-61); SODIUM 135 mmol/L (136-145); TOT PROT 8.1 g/dl (6.4-8.2)
[2018-09-23 08:46] LABS: GLUCOSE,RANDOM 360 mg/dL (74-106)
[2018-09-23] MEDS ORDERED: cefTRIAXone SODIUM 1 GM VIAL ONE (09:10)
[2018-09-23] MEDS ORDERED: DEXTROSE 5%-WATER - 50 ML IVPB ONE (09:10)
--- NOTE | 2018-09-23 09:41 | PN ---
Progress Note (short form) - Note Progress Note: NEUROSURGERY h/o DM and hypercholesterolemia has h/o slowly progressive gait dysfunction since 2000 with numbness, tingling, pain, ataxia, and coldness in her hands and feet. Has had an electric wheelchair since 2005 but worsened the past few months. + Losing hand functions/dexterity; worsening neck pain with mid/low back stiffness. Few years of progressive urinary frequency and periodic incontinence. Better since being on decadron since hospitalized. Able to sit up better and urinate better. Less neck pain. PE: AF, VSS General- unremarkable CN- intact; Motor- B Deltoid 4+, B hands 1-2, B B/BR/T 3/5 L sided slightly stronger; R LE 2, L LE 4+; Sensation- decreased LT/PP R arm down to leg, decreased distal R > L LE vibratory sensation; DTR- 2+ except decreased R ankle reflex, + R Irene's. MRI C spine- moderate to marked stenosis with osteophyte and calcified disc R > L with moderate cord impingement, broad based disc bulge C4-5 with mild cord impingement; C5-6 R paracentral disc herniation with moderate cord impingement and moderate to marked stenosis; L > R chronic DDD/marked stenosis with cord impingement; myelomalacia C3-4 to C7 most prominent @ C4. Cervical DDD/HNP/osteophytes with marked stenosis and myelomalacia with resultant chronic progressive myelopathy Candidate for multilevel anterior decompression, partial corpectomies, interbody fusion with instrumentation C3-7; may need future posterior decompression Prognosis fair only since pt has been markedly symptomatic since at least 2005 and there is no guarantee of favorable outcome despite surgery Operative and postop care discussed including SSEP/EMG/MEP Collar post-op; bone stim post op Pros and cons, potential risks and benefits discussed w/ pt and Since surgery is desired by pt, pt must quit smoking and have DM under strict control if she is to have any chance of healing the fusion properly Monitor BS and treat accordingly since pt is on steroid Medical optimization OR tomorrow 1 pm All questions answered
--- NOTE | 2018-09-23 10:04 | PN ---
Progress Note (short form) - Note Progress Note: NEUROLOGY PROGRESS: Events and MRI reviewed and discussed with Dr. Rowe.Dr. Plummer's coverage appreciated. Pt notes slightly reduced numbness in the hands on decadron but denies change in gait. Pt. C/O Low back pain. MRI of Cervical spine (reviewed): shows severe, diffuse DJD with large C5C6 HNP with severe cord compression; spondylytic myelopathy at C3C4 with myelomalacia; and right foraminal HNP at C6C7. EXAM: unchanged with focal weakness in C7 group on the right and right hip flexors. Hyperreflexic. B/L Babinskis. IMP: 1. Severe, progressive, cervical myelopathy 2. Right C7 radiculopathy 3. R/O High LS Radic on the right PLAN: For surgery tomorrow. MRI of LS spine. Thank you very much, Shadi Colón MD
[2018-09-23] MEDS: CEFTRIAXONE 1 GM in DEXTROSE 5%-WATER - 50 ML IVPB SCH (10:05)
[2018-09-23] MEDS: PREGABALIN 75 MG CAPSULE PO SCH ×2 (10:05→22:00)
[2018-09-23] MEDS: LORATADINE 10 MG TABLET PO SCH (10:05)
[2018-09-23] MEDS ORDERED: PT OWN MED DRAWER 7, Y5N ONE ×3 (10:08→23:03)
[2018-09-23] MEDS: AMITRIPTYLINE HCL 25 MG TABLET (FP) PO SCH (10:10)
[2018-09-23 10:51] LABS: INR 0.99 (0.83-1.09); PROTHROMBIN TIME (PATIENT) 11.7 SEC (9.7-13.0)
[2018-09-23] MEDS: ACETAMINOPHEN 325 MG TABLET (FP) PO PRN ×2 (11:26→22:00)
[2018-09-23] MEDS: ATORVASTATIN CA 20 MG TABLET (FP) PO SCH (22:00)
[2018-09-24] MEDS: SODIUM CHLORIDE 0.45%/POT 20 MEQ/1,000 ML INFUS.BAG IV SCH (00:10)
--- NOTE | 2018-09-24 00:28 | PN ---
Progress Note, Physician History of Present Illness: Pt agreed to surgery - Current Medication List Current Medications: Active Medications Acetaminophen (Tylenol -) 650 mg PO Q6H PRN PRN Reason: pain Last Admin: 09/23/18 22:00 Dose: 650 mg Amitriptyline HCl (Elavil -) 50 mg PO DAILY [facility] Last Admin: 09/23/18 10:10 Dose: 50 mg Atorvastatin Calcium (Lipitor -) 20 mg PO HS [facility] Last Admin: 09/23/18 22:00 Dose: 20 mg Ceftriaxone Sodium 1 gm/ (Dextrose) 50 mls @ 100 mls/hr IVPB DAILY [facility]; Protocol Last Admin: 09/23/18 10:05 Dose: 100 mls/hr Potassium Chloride/Sodium Chloride (1/2ns+20meq Kcl) 20 meq in 1,000 mls @ 75 mls/hr IV ASDIR [facility] Last Admin: 09/24/18 00:10 Dose: 75 mls/hr Insulin Aspart (Novolog Vial Sliding Scale -) 1 vial SQ ACHS [facility]; Protocol Last Admin: 09/23/18 22:00 Dose: 10 unit Loratadine (Claritin -) 10 mg PO DAILY [facility] Last Admin: 09/23/18 10:05 Dose: 10 mg Metformin HCl (Glucophage -) 1,000 mg PO BID@0700,1630 [facility] Last Admin: 09/23/18 18:10 Dose: 1,000 mg Pregabalin (Lyrica -) 150 mg PO BID [facility] Last Admin: 09/23/18 22:00 Dose: 150 mg Tizanidine HCl (Tizanidine Hcl) 4 mg PO TID [facility] Last Admin: 09/23/18 22:39 Dose: 4 mg - Objective Vital Signs: Vital Signs Temperature 97.7 F 09/23/18 21:51 Pulse Rate 85 09/23/18 21:51 Respiratory Rate 20 09/23/18 21:51 Blood Pressure 136/83 09/23/18 21:51 O2 Sat by Pulse Oximetry (%) 95 09/22/18 09:00 Cardiovascular: Yes: WNL, Regular Rate and Rhythm Respiratory: Yes: WNL, Regular, CTA Bilaterally Gastrointestinal: Yes: WNL, Normal Bowel Sounds, Soft Labs: CBC, BMP 09/23/18 08:00 09/23/18 06:30 INR, PTT INR 0.99 (0.83-1.09) 09/23/18 10:10 Problem List - Problems (1) Cord compression Assessment/Plan: Pt has agreed to surgery in am Cont IV decadron wc is going to elevate glucose At this time there is no medical contraindication for surgery Code(s): G95.20 - UNSPECIFIED CORD COMPRESSION (2) UTI (urinary tract infection) Assessment/Plan: Cont IV ceftriaxone Urine culture (+) for E.Coli and alpha hemolytic strept Code(s): N39.0 - URINARY TRACT INFECTION, SITE NOT SPECIFIED (3) Diabetes Assessment/Plan: Cont sliding scale w/ coverage Cont metformin Steroids are causing increase in glucose Code(s): E11.9 - TYPE 2 DIABETES MELLITUS WITHOUT COMPLICATIONS (4) Cervical myelopathy Assessment/Plan: Cont gabapentin Code(s): G95.9 - DISEASE OF SPINAL CORD, UNSPECIFIED
[2018-09-24] MEDS: TIZANIDINE HCL 4 MG TABLET PO SCH ×3 (05:54→23:03)
[2018-09-24] MEDS: metFORMIN HCL 500 MG TABLET (FP) PO SCH ×2 (06:20→17:09)
[2018-09-24] MEDS: INSULIN SLIDING SCALE (NOVOLOG) 1 VIAL SQ SCH ×4 (06:20→23:10)
[2018-09-24 09:18] LABS: BASO % 0.1 % (0-2.0); HEMATOCRIT 38.5 % (32.4-45.2); LYMPH % 12.6 % (8-40); MCH 29.3 pg (25.7-33.7); MCHC 33.8 g/dl (32.0-36.0); MEAN CELL VOLUME 86.8 fl (80-96); MONO % 7.7 % (3.8-10.2); NEUT % 79.6 % (42.8-82.8); PLATELET COUNT 231 K/MM3 (134-434); RBC 4.43 M/mm3 (3.60-5.2); RDW 13.9 % (11.6-15.6); WHITE BLOOD COUNT 17.5 K/mm3 (4.0-10.0)
[2018-09-24 10:19] LABS: ALBUMIN 3.8 g/dl (3.4-5.0); ALK PHOS 72 U/L (45-117); ANION GAP 8 MMOL/L (8-16); BILIRUBIN,TOTAL 0.2 mg/dL (0.2-1); BLOOD UREA NITROGEN 26 mg/dL (7-18); CALCIUM 9.6 mg/dL (8.5-10.1); CHLORIDE 105 mmol/L (98-107); CO2 25 mmol/L (21-32); CREATININE 0.8 mg/dL (0.55-1.3); GLUCOSE,RANDOM 145 mg/dL (74-106); POTASSIUM 4.2 mmol/L (3.5-5.1); SGOT/AST 12 U/L (15-37); SGPT/ALT 38 U/L (13-61); SODIUM 137 mmol/L (136-145); TOT PROT 7.3 g/dl (6.4-8.2)
[2018-09-24] MEDS ORDERED: DEXTROSE 5%-WATER - 50 ML IVPB ONE (10:46)
[2018-09-24] MEDS ORDERED: cefTRIAXone SODIUM 1 GM VIAL ONE (10:46)
[2018-09-24] MEDS: CEFTRIAXONE 1 GM in DEXTROSE 5%-WATER - 50 ML IVPB SCH (10:48)
[2018-09-24] MEDS ORDERED: ROCURONIUM BROMIDE 50 MG/5 ML VIAL ONE ×2 (11:08→15:38)
[2018-09-24] MEDS ORDERED: LIDOCAINE HCL/PF 2% SDV 5ML VIAL ONE ×3 (11:08→14:52)
[2018-09-24] MEDS ORDERED: SUCCINYLCHOLINE CHLORIDE 200 MG/10 ML VIAL ONE (11:08)
[2018-09-24] MEDS ORDERED: DEXAMETHASONE SOD PHOSPHATE 4 MG/1 ML VIAL ONE (11:09)
[2018-09-24] MEDS ORDERED: PROPOFOL 20 ML ONE ×8 (11:10→17:38)
[2018-09-24] MEDS ORDERED: KETOROLAC TROMETHAMINE 30 MG/1 ML VIAL ONE (11:22)
[2018-09-24] MEDS: LORATADINE 10 MG TABLET PO SCH (12:39)
[2018-09-24] MEDS: AMITRIPTYLINE HCL 25 MG TABLET (FP) PO SCH (12:40)
[2018-09-24] MEDS: PREGABALIN 75 MG CAPSULE PO SCH ×2 (12:40→23:03)
[2018-09-24] MEDS ORDERED: ONDANSETRON 4 MG/2 ML VIAL IVPUSH PRN (12:56)
[2018-09-24] MEDS ORDERED: LACTATED RINGERS SOLUTION 1,000 ML IV SCH (13:00)
[2018-09-24] MEDS ORDERED: BUPIVACAINE HCL/PF 0.5% (5MG/ML) 10 ML VIAL ONE (13:38)
[2018-09-24] MEDS ORDERED: THROMBIN (BOVINE) 5,000 UNIT VIAL TP ONE ×2 (13:38→14:45)
[2018-09-24] MEDS ORDERED: MIDAZOLAM HCL 2 MG/2 ML SINGLE DOSE VIAL ONE ×2 (13:45)
[2018-09-24] MEDS ORDERED: fentaNYL CITRATE 250 MCG/5 ML VIAL ONE (13:45)
[2018-09-24] MEDS ORDERED: TERBUTALINE SULFATE 1 MG/1 ML VIAL SQ ONE (13:45)
[2018-09-24] MEDS ORDERED: KETAMINE HCL 200 MG/20 ML VIAL ONE ×2 (14:01→15:22)
[2018-09-24] MEDS ORDERED: PHENYLEPHRINE HCL 10 MG/1 ML SINGLE DOSE VIAL ONE (14:08)
[2018-09-24] MEDS ORDERED: LIDOCAINE HCL 1%, 10 MG/ML (20ML VIAL) ONE (14:11)
[2018-09-24] MEDS ORDERED: BENZOIN TINCTURE SWABSTICK TP ONE (14:12)
[2018-09-24] MEDS ORDERED: ceFAZolin SODIUM 1 GM VIAL IVPB ONE ×2 (14:20)
[2018-09-24] MEDS ORDERED: ceFAZolin SODIUM 1 GM VIAL ONE (14:27)
[2018-09-24] MEDS ORDERED: BACITRACIN 15 GM TUBE TOPICAL OINTMENT TP ONE (14:30)
[2018-09-24] MEDS ORDERED: BACITRACIN 50,000 UNITS VIAL TP ONE (14:45)
[2018-09-24] MEDS ORDERED: NEOSTIGMINE METHYLSULFATE 0.5 MG/ML - 10 ML MDV ONE (15:38)
[2018-09-24] MEDS ORDERED: DESFLURANE GAS 240 ML BOTTLE IH ONE (18:30)
--- NOTE | 2018-09-24 18:57 | OP ---
Operative Note - Note: Operative Date: 09/24/18 Pre-Operative Diagnosis: Marked stenosis C3-4, C5-6 and C6-7; moderate stenosis C5-6; R C5-6 acute/subacute HNP; progressive myelopathy Operation: Ravinder vasquez; Partial corpectomies C3,4,5,6,7; ant cervical decompression, fusion, and instrumentation C3-4-5-6-7; interbody implants C3-4, C4-5, C5-6, C6-7; microdissection Findings: enlarged thyroid; bridging osteophytes C5-6 and C6-7; degenerative disc space narrowing multiple levels; cord impingement multiple levels, attenuated baseline MEP signals Implants: interbody Fontana implants 6 mm C3-4, C4-5, C6-7; 7 mm implants C5-6 Post-Operative Diagnosis: Same as Pre-op Surgeon: Gen Rowe Reliner: Lesly Hernandez Anesthesiologist/SUPPLY TECHNICIAN: Alfredo Costa Anesthesia: General Specimens Removed: C3-4, C4-5, C5-6, C6-7 discs Estimated Blood Loss (mls): 50 Operative Report Dictated: Yes
[2018-09-24 19:15] LABS: HTLV I/II ANTIBODY Negative (Negative)
[2018-09-24] MEDS ORDERED: HYDROmorphone *PCA* 10MG/50ML DISP.SYRIN PCA SCH (19:30)
--- NOTE | 2018-09-24 21:08 | PN ---
Progress Note (short form) - Note Progress Note: NEUROSURGERY In PACU PE: AF, VSS; O2 sat 98% C/o mild dyspnea earlier, fair amount of secretion/suctioned General- CV- RR; Lungs- decreased BS at bases; Abd- benign Still drowsy Minimal extremity movement presently, though should be better given stable MEP/ SSEP at end of surgery despite extensive surgical procedure Cont decadron at 4 mg q6hrs Intra-op findings d/w over phone
[2018-09-24] MEDS: D5-1/2NS+20 MEQ KCL - 20 MEQ/1,000 ML INFUS.BAG IV SCH (21:30)
[2018-09-24] MEDS ORDERED: MORPHINE SULFATE 2 MG/ML VIAL IVPB PRN (21:41)
[2018-09-24] MEDS: diazePAM 5 MG TABLET PO SCH (23:02)
[2018-09-24] MEDS: ATORVASTATIN CA 20 MG TABLET (FP) PO SCH (23:03)
[2018-09-24] MEDS: DOCUSATE SODIUM 100 MG CAPSULE (FP) PO SCH (23:03)
[2018-09-24] MEDS: HYDROmorphone HCl 2 MG/ML VIAL IVPB PRN (23:10)
--- NOTE | 2018-09-25 00:01 | PN ---
Progress Note, Physician History of Present Illness: Pt seen and examined 09/24/18 however note is being entered now - Current Medication List Current Medications: Active Medications Acetaminophen (Tylenol -) 650 mg PO Q6H PRN PRN Reason: pain Last Admin: 09/23/18 22:00 Dose: 650 mg Amitriptyline HCl (Elavil -) 50 mg PO DAILY PAZ Last Admin: 09/24/18 12:40 Dose: Not Given Atorvastatin Calcium (Lipitor -) 20 mg PO HS COUNTS INCLUDE 234 BEDS AT THE [facility] Last Admin: 09/24/18 23:03 Dose: Not Given Diazepam (Valium -) 5 mg PO Q8H PAZ Last Admin: 09/24/18 23:02 Dose: Not Given Docusate Sodium (Colace -) 100 mg PO TID PAZ Last Admin: 09/24/18 23:03 Dose: Not Given Fentanyl (Sublimaze Injection -) 50 mcg IVPUSH Q5M PRN PRN Reason: PAIN-PACU ORDER X 4 DOSES ONLY Last Admin: 09/24/18 20:00 Dose: 50 mcg Hydromorphone HCl (Dilaudid Vial -) 1 mg IVPB Q3H PRN PRN Reason: PAIN SCALE 4-10 Last Admin: 09/24/18 23:10 Dose: 1 mg Ceftriaxone Sodium 1 gm/ (Dextrose) 50 mls @ 100 mls/hr IVPB DAILY COUNTS INCLUDE 234 BEDS AT THE [facility]; Protocol Last Admin: 09/24/18 10:48 Dose: 100 mls/hr Potassium Chloride/Sodium Chloride (1/2ns+20meq Kcl) 20 meq in 1,000 mls @ 75 mls/hr IV ASDIR PAZ Last Admin: 09/24/18 00:10 Dose: 75 mls/hr Lactated Ringer's (Lactated Ringers Solution) 1,000 mls @ 75 mls/hr IV ASDIR PAZ Cefazolin Sodium (Ancef 1 Gm Premixed Ivpb -) 1 gm in 50 mls @ 100 mls/hr IVPB Q8H-IV PAZ Stop: 09/25/18 10:29 Potassium Chloride/Dextrose/Sod Cl (D5-1/2ns+20 Meq Kcl -) 20 meq in 1,000 mls @ 100 mls/hr IV ASDIR PAZ Last Admin: 09/24/18 21:30 Dose: 0 mls Insulin Aspart (Novolog Vial Sliding Scale -) 1 vial SQ ACHS COUNTS INCLUDE 234 BEDS AT THE [facility]; Protocol Last Admin: 09/24/18 23:10 Dose: 2 unit Loratadine (Claritin -) 10 mg PO DAILY COUNTS INCLUDE 234 BEDS AT THE [facility] Last Admin: 09/24/18 12:39 Dose: Not Given Metformin HCl (Glucophage -) 1,000 mg PO BID@0700,1630 COUNTS INCLUDE 234 BEDS AT THE [facility] Last Admin: 09/24/18 17:09 Dose: Not Given Ondansetron HCl (Zofran Injection) 4 mg IVPUSH Q6H PRN PRN Reason: NAUSEA AND/OR VOMITING Pregabalin (Lyrica -) 150 mg PO BID COUNTS INCLUDE 234 BEDS AT THE [facility] Last Admin: 09/24/18 23:03 Dose: Not Given Tizanidine HCl (Tizanidine Hcl) 4 mg PO TID COUNTS INCLUDE 234 BEDS AT THE [facility] Last Admin: 09/24/18 23:03 Dose: Not Given - Objective Vital Signs: Vital Signs Temperature 99.5 F 09/24/18 21:30 Pulse Rate 106 H 09/24/18 21:30 Respiratory Rate 22 H 09/24/18 21:30 Blood Pressure 160/82 09/24/18 21:30 O2 Sat by Pulse Oximetry (%) 97 09/24/18 21:15 Cardiovascular: Yes: Tachycardia Respiratory: Yes: WNL, Regular, CTA Bilaterally Gastrointestinal: Yes: WNL, Normal Bowel Sounds, Soft Labs: CBC, BMP 09/24/18 09:00 09/24/18 09:00 INR, PTT INR 0.99 (0.83-1.09) 09/23/18 10:10 Problem List - Problems (1) Cord compression Assessment/Plan: S/P lamnectomy c-spine Cont IV decadron wc is going to elevate glucose Code(s): G95.20 - UNSPECIFIED CORD COMPRESSION (2) UTI (urinary tract infection) Assessment/Plan: Cont IV ceftriaxone Urine culture (+) for E.Coli and alpha hemolytic strept Code(s): N39.0 - URINARY TRACT INFECTION, SITE NOT SPECIFIED (3) Diabetes Assessment/Plan: Cont sliding scale w/ coverage Cont metformin Steroids are causing increase in glucose Code(s): E11.9 - TYPE 2 DIABETES MELLITUS WITHOUT COMPLICATIONS (4) Cervical myelopathy Code(s): G95.9 - DISEASE OF SPINAL CORD, UNSPECIFIED
[2018-09-25] MEDS: CEFAZOLIN 1 GM/D5W 1 GM/50 ML BAG IVPB SCH ×2 (01:58→10:07)
[2018-09-25] MEDS: HYDROmorphone HCl 2 MG/ML VIAL IVPB PRN ×3 (02:35→08:26)
[2018-09-25] MEDS: diazePAM 5 MG TABLET PO SCH ×3 (03:44→21:28)
[2018-09-25] MEDS: TIZANIDINE HCL 4 MG TABLET PO SCH ×3 (05:31→21:35)
[2018-09-25] MEDS: DOCUSATE SODIUM 100 MG CAPSULE (FP) PO SCH ×4 (05:32→21:59)
--- NOTE | 2018-09-25 06:48 | OP ---
DATE OF OPERATION: DATE OF DICTATION: 09/24/2018 PREOPERATIVE DIAGNOSIS: 1. Multilevel cervical disk disease with marked spinal stenosis, cervical spinal cord myelomalacia and progressive cervical myelopathy from C3-4 to C6-7. 2. Diabetes. POSTOPERATIVE DIAGNOSIS: 1. Multilevel cervical disk disease with marked spinal stenosis, cervical spinal cord myelomalacia and progressive cervical myelopathy from C3-4 to C6-7. 2. Diabetes. SURGEON: Gen Rowe M.D. AGATE SETTER: Clinton Caldwell ANESTHESIA: General endotracheal anesthesia ANESTHESIOLOGIST: Alfredo Costa M.D. ESTIMATED BLOOD LOSS: 550 mL PROCEDURE: 1. Preoperative placement and postoperative removal of cranial traction tongs for intraoperative traction (33589). 2. Anterior cervical partial corpectomy C3, C4, C5, C6, C7 for spinal cord cervical root decompression (43099, 06118, 40970, 75538, and 57949). 3. Anterior cervical interbody fusion C3-4, C4-5, C5-6, and C6-7 (31211, 16934 , 97275, and 16200). 4. Utilization of intervertebral lordotic bony prosthetic device from [employer] with 6-mm devices at C3-4, C4-5, C6-7, and 7-mm device at C5-6 (13795 , 64288-72, 71186-72, and 95844-84). 5. Anterior cervical instrumentation from C3 to C7 with [employer] Select 72-mm titanium plate and 14-mm titanium screws (86592) (variable angle screws bilaterally at C3, C4, and left C5 and bilateral C6, and fixed angle 14-mm screws at C7 bilaterally). 6. Microsurgical dissection with operative microscope and microsurgical techniques (19201). FINDINGS: 1. Extensive cervical spondylosis. 2. Disk herniation with spinal cord impingement at multiple levels contributed to by disk herniation and associated osteophytes especially at C3-4, C4-5, C5-6, and C6-7. 3. Attenuated motor evoked potential and SSEP signals at baseline. INDICATION: The patient is a 63-year-old female with a history of diabetes, who has had profound gait dysfunction since 2000. Since 2005, she has been using a motorized scooter. She was admitted at this time because of the progressive ataxia and lost dexterity of her hands. MRI demonstrated marked cervical spinal cord stenosis with cord impingement at multiple levels as well as myelomalacia of the spinal cord. Because of her progressive neurological deficit, corresponding MRI findings, she was consented for anterior cervical decompression, fusion, and instrumentation. Risks of surgery include but are not limited to bleeding, infection, CSF leak, neurologic injury, paralysis, hoarseness, swallowing difficulties, and other risk of general anesthesia. The patient understands indication for procedure, procedure in detail, risks and benefits, and alternative treatment for cervical spine condition and wishes to proceed. No guarantee was given for a favorable outcome. She understands that she is at high risk for surgery because of her history of diabetes with chronic spinal cord compression with myelomalacia of the spinal cord. No guarantee is given for a favorable outcome. DESCRIPTION OF PROCEDURE: Patient was taken to the operating room, she was placed in supine position. After general anesthesia was induced and appropriate lines were placed, shoulders were taped down to the sides as well as the chest. This was to help expose her cervical spine. The cranial traction tongues were placed with bacitracin ointment. No traction weight was placed until decompression was mostly completed. At this point, the incision was opened with number 10 blade just anterior to the border of the sternocleidomastoid muscle, it was approximately 3 inches in length. A self-retaining retractor was inserted. The platysmal muscle was split longitudinally. Dissection proceeded medial to the carotid sheath and lateral to the trachea and esophagus. A large thyroid gland was noted. This was retracted inferior and through the contralateral side. The prevertebral fascia was cleaned with Kitner's and hemostasis was obtained with bipolar electrocautery. The longus colli muscle was coagulated with monopolar electrocautery. A localized x-ray was obtained with a spinal needle in place at C4-5, C5-6. After positions were verified, the radiolucent retractor system was inserted. The disk annulus was incised with a number 15 blade at C5-6, then C4-5, then C3-4, then C6-7. The disk spaces were rather collapsed at all levels. The microscope was brought in at this point for both illumination and magnification. Microsurgical techniques were utilized. A partial corpectomy in the bottom of vertebral body C3, top and bottom vertebral body of C4, top and bottom vertebral body of C5, top and bottom vertebral body C6, and top vertebral body C7, was carried out with angle curet, Kerrison rongeur, as well high-speed pneumatic drill. The wound was irrigated and bathed with antibiotic irrigation. The patient had baseline weakness of her upper and lower extremities, right greater than left. She also has attenuated motor evoked potential signals. At this time, further decompression was carried out at all these levels through the posterior longitudinal ligament. Bridging posterior osteophytes were noted at multiple levels. The osteophytes were taken down with angled curet and resected with Kerrison rongeur. Bilateral foraminotomy was carried out. AP diameter vertebral body was measured to be 6 mm at C3-4, C4-5, and C6-7 and 7 mm at C5-6. Interbody implants were placed after decompression was completed. The partial corpectomy was needed because of very narrow disk space and associated osteophytes with spinal cord compression. After interbody implants were placed at C6-7, C5-6, C4-5, and C3-4 , hemostasis was obtained with bipolar electrocautery. The wounds were once again irrigated. Neuromonitoring signals were checked throughout. There was sporadic EMG activity to the C5 and C6 nerve root, and some fluctuation in MEP stimulation signal activities of her hands and feet. She did have decreased signal in her feet and hands in general. At this point, a 72-mm titanium plate from Lee spine was secured with fixation pins and screw holes were first drilled with the drill guide. Because of the patient's anatomy, the plate did not conform to the vertebral body well especially at C6. The patient was also found to have osteopenia. She does have hard cortical osteophytes, however. Screw holes were first drilled with handheld guide and drilled, and a 4-cm variable angle screw was used at C3, C4, and C6. C5 only left side of C5 screw was kept because of the soft bone consistency of right side. Fixed angle screw was used at C7 bilaterally. The locking mechanisms were engaged. A final lateral cervical spine x-ray demonstrated satisfactory positioning of the implant. The patient tolerated the procedure well and was able to be extubated after the incision was closed. A piece of Surgicel laid on top of the plate system. The plate was felt to be flush to anterior vertebral line. The platysma muscle was closed with 3-0 Vicryl suture as well as the subcutaneous fascia. Skin was closed with 4-0 Vicryl in a running subcutaneous suture. Steri-Strips and a sterile occlusive dressing were applied. The patient received one dose of 2 g of Ancef and 10 mg Decadron prior to the incision. All needle, lap, sponge counts are correct. The MEP, SSEP as well as EMG signals were at baseline at the end of the procedure. Nettie SOTO/[id number] MTDD
--- NOTE | 2018-09-25 07:44 | SURG ---
Surgery Rn Production Note Rn Production: Lesly Hernandez PA-C Date of Service: 09/24/18 Diagnosis: Marked stenosis C3-4, C5-6 and C6-7; moderate stenosis C5-6; R C5-6 acute/ subacute HNP; progressive myelopathy Procedure: Ravinder vasquez; Partial corpectomies C3,4,5,6,7; ant cervical decompression , fusion, and instrumentation C3-4-5-6-7; interbody implants C3-4, C4-5, C5-6, C6-7; microdissection I was present for the entirety of the operative procedure. For further detail, please refer to operative report. Visit type - Case Type Case Type: ED Admission - Emergency Emergency Visit: Yes ED Registration Date: 09/19/18 Care time: The patient presented to the Emergency Department on the above date and was hospitalized for further evaluation of their emergent condition. - New patient This patient is new to me today: Yes Date on this admission: 09/25/18
[2018-09-25 08:01] LABS: BASO % 0.1 % (0-2.0); HEMATOCRIT 35.5 % (32.4-45.2); LYMPH % 14.5 % (8-40); MCH 29.2 pg (25.7-33.7); MCHC 33.6 g/dl (32.0-36.0); MEAN CELL VOLUME 86.8 fl (80-96); MONO % 12.4 % (3.8-10.2); PLATELET COUNT 209 K/MM3 (134-434); RDW 13.3 % (11.6-15.6)
[2018-09-25 08:17] LABS: ALBUMIN 3.4 g/dl (3.4-5.0); ALK PHOS 72 U/L (45-117); ANION GAP 5 MMOL/L (8-16); BILIRUBIN,TOTAL 0.3 mg/dL (0.2-1); BLOOD UREA NITROGEN 19 mg/dL (7-18); CALCIUM 8.9 mg/dL (8.5-10.1); CHLORIDE 100 mmol/L (98-107); CO2 29 mmol/L (21-32); CREATININE 0.8 mg/dL (0.55-1.3); GLUCOSE,RANDOM 184 mg/dL (74-106); POTASSIUM 4.4 mmol/L (3.5-5.1); SGOT/AST 15 U/L (15-37); SGPT/ALT 39 U/L (13-61); SODIUM 134 mmol/L (136-145); TOT PROT 6.9 g/dl (6.4-8.2)
[2018-09-25] MEDS: D5-1/2NS+20 MEQ KCL - 20 MEQ/1,000 ML INFUS.BAG IV SCH ×4 (08:17→21:55)
[2018-09-25] MEDS: metFORMIN HCL 500 MG TABLET (FP) PO SCH ×2 (08:23→17:20)
[2018-09-25] MEDS: INSULIN SLIDING SCALE (NOVOLOG) 1 VIAL SQ SCH ×4 (08:23→21:37)
[2018-09-25] MEDS ORDERED: PT OWN MED DRAWER 7, Y5N ONE ×2 (08:37→14:09)
--- NOTE | 2018-09-25 09:00 | PN ---
Progress Note (short form) - Note Progress Note: NEUROSURGERY POD #1 Feels arms and legs are "better" Incisional pain Some sore throat as expected Dysphagia after C3-4 procedure expected PE: Tmax 98.8, AF, one measurement of HTN, VSS General- CV- RR; Lungs- decreased BS at bases; Abd- benign CN- intact; Motor- B Deltoid 4+, B hands 2, B B/BR/T 3/5 L sided slightly stronger; R LE 2-3, L LE 4+; Sensation- decreased LT/PP R arm down to leg, decreased distal R > L LE vibratory sensation; DTR- 2+ except decreased R ankle reflex Dressing C/D/I- changed For C spine x-rays Intra-op findings d/w pt in persona and over phone again Recommend rehab, also discussed GEAR SETTER for pain OT/OOB Slowly adv diet SCD's when in bed
[2018-09-25] MEDS ORDERED: PROMETHAZINE HCL 25 MG/1 ML VIAL IVPB PRN (09:12)
[2018-09-25] MEDS ORDERED: ONDANSETRON 4 MG/2 ML VIAL IVPUSH PRN (09:12)
[2018-09-25] MEDS ORDERED: DEXAMETHASONE SOD PHOSPHATE 4 MG/1 ML VIAL IVPUSH ONE (09:12)
--- NOTE | 2018-09-25 09:19 | PN ---
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
[2018-09-25] MEDS ORDERED: DEXTROSE 5%-WATER - 50 ML IVPB ONE (10:03)
[2018-09-25] MEDS ORDERED: cefTRIAXone SODIUM 1 GM VIAL ONE (10:03)
[2018-09-25] MEDS: PREGABALIN 75 MG CAPSULE PO SCH ×2 (10:06→21:27)
[2018-09-25] MEDS: LORATADINE 10 MG TABLET PO SCH (10:06)
[2018-09-25] MEDS: CEFTRIAXONE 1 GM in DEXTROSE 5%-WATER - 50 ML IVPB SCH (10:06)
[2018-09-25] MEDS: AMITRIPTYLINE HCL 25 MG TABLET (FP) PO SCH (10:24)
[2018-09-25] MEDS: HYDROmorphone *PCA* 10MG/50ML DISP.SYRIN PCA SCH (11:56)
[2018-09-25] MEDS: ATORVASTATIN CA 20 MG TABLET (FP) PO SCH (21:28)
[2018-09-25] MEDS: diphenhydrAMINE HCL 25 MG CAPSULE (FP) PO PRN (21:32)
--- NOTE | 2018-09-25 21:46 | PN ---
Progress Note, Physician History of Present Illness: Pt wearing C collar and complains of some pruritis - Current Medication List Current Medications: Active Medications Acetaminophen (Tylenol -) 650 mg PO Q6H PRN PRN Reason: pain Last Admin: 09/23/18 22:00 Dose: 650 mg Amitriptyline HCl (Elavil -) 50 mg PO DAILY PAZ Last Admin: 09/25/18 10:24 Dose: 50 mg Atorvastatin Calcium (Lipitor -) 20 mg PO HS PAZ Last Admin: 09/25/18 21:28 Dose: 20 mg Diazepam (Valium -) 5 mg PO Q8H PAZ Last Admin: 09/25/18 21:28 Dose: 5 mg Diphenhydramine HCl (Benadryl -) 25 mg PO Q6H PRN PRN Reason: FOR ITCHING Last Admin: 09/25/18 21:32 Dose: 25 mg Docusate Sodium (Colace -) 100 mg PO TID PAZ Last Admin: 09/25/18 21:27 Dose: 100 mg Fentanyl (Sublimaze Injection -) 50 mcg IVPUSH Q5M PRN PRN Reason: PAIN-PACU ORDER X 4 DOSES ONLY Last Admin: 09/24/18 20:00 Dose: 50 mcg Hydromorphone HCl (Dilaudid Vial -) 1 mg IVPB Q3H PRN PRN Reason: PAIN SCALE 4-10 Last Admin: 09/25/18 08:26 Dose: 1 mg Hydromorphone HCl (Dilaudid Cattle Dealer -) 10 mg CATHEAD OPERATOR CATHEAD OPERATOR PAZ; Protocol Stop: 10/02/18 09:12 Last Admin: 09/25/18 11:56 Dose: 10 mg Ceftriaxone Sodium 1 gm/ (Dextrose) 50 mls @ 100 mls/hr IVPB DAILY PAZ; Protocol Last Admin: 09/25/18 10:06 Dose: 100 mls/hr Potassium Chloride/Sodium Chloride (1/2ns+20meq Kcl) 20 meq in 1,000 mls @ 75 mls/hr IV ASDIR PAZ Last Admin: 09/24/18 00:10 Dose: 75 mls/hr Lactated Ringer's (Lactated Ringers Solution) 1,000 mls @ 75 mls/hr IV ASDIR PAZ Potassium Chloride/Dextrose/Sod Cl (D5-1/2ns+20 Meq Kcl -) 20 meq in 1,000 mls @ 100 mls/hr IV ASDIR [facility] Last Admin: 09/25/18 10:00 Dose: 100 mls/hr Insulin Aspart (Novolog Vial Sliding Scale -) 1 vial SQ ACHS [facility]; Protocol Last Admin: 09/25/18 21:37 Dose: 2 unit Loratadine (Claritin -) 10 mg PO DAILY [facility] Last Admin: 09/25/18 10:06 Dose: 10 mg Metformin HCl (Glucophage -) 1,000 mg PO BID@0700,1630 [facility] Last Admin: 09/25/18 17:20 Dose: 1,000 mg Ondansetron HCl (Zofran Injection) 4 mg IVPUSH Q6H PRN PRN Reason: NAUSEA AND/OR VOMITING Ondansetron HCl (Zofran Injection) 4 mg IVPUSH Q4H PRN PRN Reason: NAUSEA AND/OR VOMITING Pregabalin (Lyrica -) 150 mg PO BID [facility] Last Admin: 09/25/18 21:27 Dose: 150 mg Promethazine HCl (Phenergan Injection -) 12.5 mg IVPB Q6H PRN PRN Reason: NAUSEA AND/OR VOMITING Tizanidine HCl (Tizanidine Hcl) 4 mg PO TID [facility] Last Admin: 09/25/18 21:35 Dose: 4 mg - Objective Vital Signs: Vital Signs Temperature 97.4 F L 09/25/18 16:20 Pulse Rate 77 09/25/18 16:20 Respiratory Rate 18 09/25/18 16:20 Blood Pressure 126/65 09/25/18 16:20 O2 Sat by Pulse Oximetry (%) 95 09/25/18 09:00 HENT: Yes: Other ((+) cerical collar) Neck: Yes: WNL, Supple Cardiovascular: Yes: WNL, Regular Rate and Rhythm Respiratory: Yes: WNL, Regular, CTA Bilaterally Gastrointestinal: Yes: WNL, Normal Bowel Sounds, Soft Labs: CBC, BMP 09/25/18 06:30 09/25/18 06:30 INR, PTT INR 0.99 (0.83-1.09) 09/23/18 10:10 Problem List - Problems (1) Cord compression Assessment/Plan: S/P partial corpectomies [id number] w/ decompression fusion and microdissection Cont CATHEAD OPERATOR ad per NSG Cont IV decadron Pt will probably need rehab once cleared by NSG Code(s): G95.20 - UNSPECIFIED CORD COMPRESSION (2) UTI (urinary tract infection) Assessment/Plan: Cont IV ceftriaxone Urine culture (+) for E.Coli and alpha hemolytic strept Code(s): N39.0 - URINARY TRACT INFECTION, SITE NOT SPECIFIED (3) Diabetes Assessment/Plan: Cont sliding scale w/ coverage Cont metformin Steroids are causing increase in glucose Code(s): E11.9 - TYPE 2 DIABETES MELLITUS WITHOUT COMPLICATIONS (4) Cervical myelopathy Code(s): G95.9 - DISEASE OF SPINAL CORD, UNSPECIFIED
[2018-09-25] MEDS: ACETAMINOPHEN 325 MG TABLET (FP) PO PRN (22:12)
--- NOTE | 2018-09-25 23:59 | CONSULT ---
Consult Consult Specialty:: endocrine Referred by:: dr.rocco sousa Reason for Consultation:: dm2 neuropathy - History of Present Illness Chief Complaint: pain post op History of Present Illness: 63yfemale pmh,dm2,hyperlipidemia,asthma,sp cervical spine surgery forMarked stenosis C3-4, C5-6 and C6-7; moderate stenosis C5-6; R C5-6 acute/subacute HNP ; progressive myelopathy has had elevated bs post op,pain and steroid related, she denies nausea or vomiting - Alcohol/Substance Use Hx Alcohol Use: No - Smoking History Smoking history: Current every day smoker Have you smoked in the past 12 months: Yes Aproximately how many cigarettes per day: 10 Home Medications - Allergies Allergies/Adverse Reactions: Allergies Allergy/AdvReac Type Severity Reaction Status Date / Time egg [Egg] Allergy Verified 09/18/18 11:47 oxycodone [Oxycodone] Allergy Verified 09/18/18 11:47 Eggs Allergy Uncoded 09/18/18 11:47 - Home Medications Home Medications: Ambulatory Orders Metformin HCl [Glucophage] 500 mg PO BID #0 tablet 11/16/11 Tizanidine HCl [Zanaflex (Nf) -] 4 mg PO TID #0 tablet 11/16/11 Amitriptyline HCl [Elavil -] 50 mg PO DAILY 09/18/18 Cetirizine HCl [All Day Allergy] 10 mg PO DAILY 09/18/18 Simvastatin 40 mg PO DAILY 09/18/18 Pregabalin [Lyrica -] 150 mg PO BID 09/20/18 Review of Systems - Review of Systems Constitutional: reports: Weakness Eyes: reports: No Symptoms HENT: reports: No Symptoms Neck: reports: Decreased ROM Cardiovascular: reports: Shortness of Breath Respiratory: reports: Exercise Intolerance, SOB on Exertion Gastrointestinal: reports: Bloating Genitourinary: reports: No Symptoms Breasts: reports: No Symptoms Reported Musculoskeletal: reports: Extremity Pain, Muscle Cramps, Muscle Weakness Integumentary: reports: No Symptoms Neurological: reports: Numbness, Unsteady Gait, Weakness Endocrine: reports: Unexplained Weight Gain Physical Exam Vital Signs: Vital Signs Temperature 97.4 F L 09/25/18 16:20 Pulse Rate 77 09/25/18 16:20 Respiratory Rate 18 09/25/18 16:20 Blood Pressure 126/65 09/25/18 16:20 O2 Sat by Pulse Oximetry (%) 95 09/25/18 09:00 Constitutional: Yes: Anxious Eyes: Yes: EOM Intact HENT: Yes: Normocephalic Neck: Yes: Trachea Midline Cardiovascular: Yes: Regular Rate and Rhythm Respiratory: Yes: CTA Bilaterally Gastrointestinal: Yes: Normal Bowel Sounds ...Rectal Exam: Yes: Deferred Renal/: Yes: WNL Musculoskeletal: Yes: Muscle Pain, Muscle Weakness Extremities: Yes: WNL Neurological: Yes: Alert, Oriented Labs: CBC, BMP 09/25/18 06:30 09/25/18 06:30 Problem List - Problems (1) Cervical myelopathy Code(s): G95.9 - DISEASE OF SPINAL CORD, UNSPECIFIED (2) Cord compression Code(s): G95.20 - UNSPECIFIED CORD COMPRESSION (3) Diabetes Code(s): E11.9 - TYPE 2 DIABETES MELLITUS WITHOUT COMPLICATIONS (4) UTI (urinary tract infection) Code(s): N39.0 - URINARY TRACT INFECTION, SITE NOT SPECIFIED (5) Weakness Code(s): R53.1 - WEAKNESS (6) Hip pain, bilateral Code(s): M25.551 - PAIN IN RIGHT HIP; M25.552 - PAIN IN LEFT HIP (7) Trauma Code(s): T14.90 - INJURY, UNSPECIFIED * DO NOT USE * Assessment/Plan Current Active Problems Cervical myelopathy (Acute) Cord compression (Acute) Diabetes (Acute) UTI (urinary tract infection) (Acute) Weakness (Acute) Abnormal Lab Results 09/25/18 09/25/18 06:30 06:30 WBC 15.0 H Absolute Neuts (auto) 11.0 H Monocytes % 12.4 H Sodium 134 L Anion Gap 5 L BUN 19 H Random Glucose 184 H Laboratory Results - last 24 hr 09/25/18 09/25/18 06:30 06:30 WBC 15.0 H RBC 4.10 Hgb 12.0 Hct 35.5 MCV 86.8 MCH 29.2 MCHC 33.6 RDW 13.3 Plt Count 209 MPV 10.0 Absolute Neuts (auto) 11.0 H Neutrophils % 73.0 Lymphocytes % 14.5 Monocytes % 12.4 H Eosinophils % 0.0 Basophils % 0.1 Nucleated RBC % 0 Sodium 134 L Potassium 4.4 Chloride 100 Carbon Dioxide 29 Anion Gap 5 L BUN 19 H Creatinine 0.8 Creat Clearance w eGFR > 60 Random Glucose 184 H Calcium 8.9 Total Bilirubin 0.3 AST 15 ALT 39 Alkaline Phosphatase 72 Total Protein 6.9 Albumin 3.4 plan: bgm q4h levemir 25 units am levemir 15 units hs metformin 1000mg bid
[2018-09-26] MEDS: SODIUM CHLORIDE 0.45%/POT 20 MEQ/1,000 ML INFUS.BAG IV SCH (00:40)
[2018-09-26] MEDS: INSULIN SLIDING SCALE (NOVOLOG) 1 VIAL SQ SCH ×6 (02:54→21:02)
[2018-09-26] MEDS: diphenhydrAMINE HCL 25 MG CAPSULE (FP) PO PRN ×4 (04:16→23:57)
[2018-09-26] MEDS: diazePAM 5 MG TABLET PO SCH ×4 (04:16→21:03)
[2018-09-26] MEDS: metFORMIN HCL 500 MG TABLET (FP) PO SCH ×2 (06:52→17:13)
[2018-09-26] MEDS: TIZANIDINE HCL 4 MG TABLET PO SCH ×3 (06:53→21:02)
[2018-09-26] MEDS: DOCUSATE SODIUM 100 MG CAPSULE (FP) PO SCH ×3 (06:53→21:02)
[2018-09-26] MEDS: INSULIN (LEVEMIR) 100 UNITS/ML UNITS SQ SCH (06:55)
[2018-09-26 07:33] LABS: BASO % 0.1 % (0-2.0); HEMATOCRIT 33.1 % (32.4-45.2); HEMOGLOBIN 11.2 GM/dL (10.7-15.3); LYMPH % 20.6 % (8-40); MCH 29.7 pg (25.7-33.7); MCHC 33.9 g/dl (32.0-36.0); MEAN CELL VOLUME 87.5 fl (80-96); MEAN PLT VOLUME 9.5 fl (7.5-11.1); MONO % 15.2 % (3.8-10.2); NEUT % 63.1 % (42.8-82.8); PLATELET COUNT 179 K/MM3 (134-434); RBC 3.78 M/mm3 (3.60-5.2); RDW 13.6 % (11.6-15.6); WHITE BLOOD COUNT 11.2 K/mm3 (4.0-10.0)
[2018-09-26 09:14] LABS: ALK PHOS 68 U/L (45-117); ANION GAP 6 MMOL/L (8-16); BILIRUBIN,TOTAL 0.6 mg/dL (0.2-1); BLOOD UREA NITROGEN 13 mg/dL (7-18); CALCIUM 8.5 mg/dL (8.5-10.1); CHLORIDE 101 mmol/L (98-107); CO2 31 mmol/L (21-32); CREATININE 0.6 mg/dL (0.55-1.3); GLUCOSE,RANDOM 121 mg/dL (74-106); SGOT/AST 11 U/L (15-37); SGPT/ALT 28 U/L (13-61); SODIUM 138 mmol/L (136-145); TOT PROT 6.2 g/dl (6.4-8.2)
[2018-09-26] MEDS ORDERED: DEXTROSE 5%-WATER - 50 ML IVPB ONE (09:36)
[2018-09-26] MEDS ORDERED: PT OWN MED DRAWER 7, Y5N ONE ×3 (09:36→20:35)
[2018-09-26] MEDS ORDERED: cefTRIAXone SODIUM 1 GM VIAL ONE (09:36)
[2018-09-26] MEDS: CEFTRIAXONE 1 GM in DEXTROSE 5%-WATER - 50 ML IVPB SCH (09:38)
[2018-09-26] MEDS: LORATADINE 10 MG TABLET PO SCH (09:40)
[2018-09-26] MEDS: AMITRIPTYLINE HCL 25 MG TABLET (FP) PO SCH (09:40)
[2018-09-26] MEDS: PREGABALIN 75 MG CAPSULE PO SCH ×2 (09:40→21:03)
[2018-09-26] MEDS: HYDROmorphone *PCA* 10MG/50ML DISP.SYRIN PCA SCH ×2 (09:46→11:39)
[2018-09-26] MEDS: D5-1/2NS+20 MEQ KCL - 20 MEQ/1,000 ML INFUS.BAG IV SCH ×3 (09:48→23:51)
[2018-09-26] MEDS: ACETAMINOPHEN 325 MG TABLET (FP) PO PRN ×2 (10:11→17:54)
--- NOTE | 2018-09-26 12:07 | PN ---
Progress Note (short form) - Note Progress Note: Anesthesia NEEDLE PROCESS FELT GOODS SUPERVISOR round, Post op day#2. S/p C3-C7 ACDF under GA. NEEDLE PROCESS FELT GOODS SUPERVISOR Dilaudud. Pain score 4-8, Continue NEEDLE PROCESS FELT GOODS SUPERVISOR today. VSS. Follow up tomorrow.
--- NOTE | 2018-09-26 13:57 | PN ---
Progress Note (short form) - Note Progress Note: NEUROSURGERY POD #2 No new complaint Walking on the floor wth PT earlier Some itching with pain meds Incisional pain Some sore throat as expected Dysphagia after C3-4 procedure expected PE: Tmax 98.4, AF, VSS General- CV- RR; Lungs- decreased BS at bases; Abd- benign CN- intact; Motor- B Deltoid 4+, B hands 2, B B/BR/T 3/5 L sided slightly stronger; R LE 2-3, L LE 4+; Sensation- decreased LT/PP R arm down to leg, decreased distal R > L LE vibratory sensation; DTR- 2+ except decreased R ankle reflex Dressing C/D/I- changed For C spine x-rays (pt declined today) Recommend rehab, also discussed Encouraged ROM exercises THREAD CUTTER for pain, will transition to Vicodin PT/OOB Slowly adv diet SCD's when in bed
[2018-09-26 14:50] VITALS: BMI 24.8
--- NOTE | 2018-09-26 17:23 | PATH ---
Surgical Pathology Report Patient Name: ALEJANDRA LANDIN Med. Rec. #: [id number] /Age/Gender: 1955 (Age: 63) / F Account: [id number] Location: [facility] MED/SURG Taken: 09/24/2018 Received: 09/25/2018 Reported: 09/26/2018 Physicians: Nettie Fernandez M.D. Specimen(s) Received C3-4-5-6-7 DISC Clinical History Myelomalacia C3-4 to C7 Stenosis, cord impingement Final Diagnosis DISC, C3-7, ANTERIOR CERVICAL DECOMPRESSION, FUSION: BENIGN INTERVERTEBRAL DISC TISSUE, BONE, AND SCANT MARROW. Electronically Signed Korina Mann M.D. Gross Description Received in formalin labeled "C3-4-5-6-7 disc," is a 3.8 x 3.3 x 0.4 cm aggregate of mendiola fragments of fibrocartilaginous tissue. A telephone services sales representative portion is submitted in one cassette. /09/25/2018 [facility]09/25/2018
--- NOTE | 2018-09-26 17:36 | PN ---
Progress Note, Physician - Current Medication List Current Medications: Active Medications Acetaminophen (Tylenol -) 650 mg PO Q6H PRN PRN Reason: pain Last Admin: 09/26/18 10:11 Dose: 650 mg Amitriptyline HCl (Elavil -) 50 mg PO DAILY [facility] Last Admin: 09/26/18 09:40 Dose: 50 mg Atorvastatin Calcium (Lipitor -) 20 mg PO HS [facility]Z Last Admin: 09/25/18 21:28 Dose: 20 mg Diazepam (Valium -) 5 mg PO Q8H [facility] Last Admin: 09/26/18 10:17 Dose: 5 mg Diphenhydramine HCl (Benadryl -) 25 mg PO Q6H PRN PRN Reason: FOR ITCHING Last Admin: 09/26/18 17:13 Dose: 25 mg Docusate Sodium (Colace -) 100 mg PO TID [facility] Last Admin: 09/26/18 13:25 Dose: 100 mg Fentanyl (Sublimaze Injection -) 50 mcg IVPUSH Q5M PRN PRN Reason: PAIN-PACU ORDER X 4 DOSES ONLY Last Admin: 09/24/18 20:00 Dose: 50 mcg Hydromorphone HCl (Dilaudid Vial -) 1 mg IVPB Q3H PRN PRN Reason: PAIN SCALE 4-10 Last Admin: 09/25/18 08:26 Dose: 1 mg Hydromorphone HCl (Dilaudid Specialist Field Engineer -) 10 mg AIRBRUSH ARTIST TECHNICAL AIRBRUSH ARTIST TECHNICAL PAZ; Protocol Stop: 10/02/18 09:12 Last Admin: 09/26/18 11:39 Dose: 10 mg Ceftriaxone Sodium 1 gm/ (Dextrose) 50 mls @ 100 mls/hr IVPB DAILY [facility]; Protocol Last Admin: 09/26/18 09:38 Dose: 100 mls/hr Potassium Chloride/Sodium Chloride (1/2ns+20meq Kcl) 20 meq in 1,000 mls @ 75 mls/hr IV ASDIR PAZ Last Admin: 09/26/18 00:40 Dose: Not Given Lactated Ringer's (Lactated Ringers Solution) 1,000 mls @ 75 mls/hr IV ASDIR PAZ Last Admin: 09/26/18 13:41 Dose: Not Given Potassium Chloride/Dextrose/Sod Cl (D5-1/2ns+20 Meq Kcl -) 20 meq in 1,000 mls @ 100 mls/hr IV ASDIR [facility] Last Admin: 09/26/18 09:48 Dose: 100 mls/hr Insulin Aspart (Novolog Vial Sliding Scale -) 1 vial SQ Q4HPO [facility]; Protocol Last Admin: 09/26/18 17:12 Dose: Not Given Insulin Detemir (Levemir Vial) 25 units SQ AM [facility] Last Admin: 09/26/18 06:55 Dose: 25 unit Loratadine (Claritin -) 10 mg PO DAILY [facility] Last Admin: 09/26/18 09:40 Dose: 10 mg Metformin HCl (Glucophage -) 1,000 mg PO BID@0700,1630 [facility] Last Admin: 09/26/18 17:13 Dose: 1,000 mg Ondansetron HCl (Zofran Injection) 4 mg IVPUSH Q6H PRN PRN Reason: NAUSEA AND/OR VOMITING Ondansetron HCl (Zofran Injection) 4 mg IVPUSH Q4H PRN PRN Reason: NAUSEA AND/OR VOMITING Pregabalin (Lyrica -) 150 mg PO BID [facility] Last Admin: 09/26/18 09:40 Dose: 150 mg Promethazine HCl (Phenergan Injection -) 12.5 mg IVPB Q6H PRN PRN Reason: NAUSEA AND/OR VOMITING Tizanidine HCl (Tizanidine Hcl) 4 mg PO TID [facility] Last Admin: 09/26/18 13:25 Dose: 4 mg - Objective Vital Signs: Vital Signs Temperature 97.4 F L 09/26/18 06:26 Pulse Rate 78 09/26/18 12:00 Respiratory Rate 20 09/26/18 12:00 Blood Pressure 117/60 09/26/18 12:00 O2 Sat by Pulse Oximetry (%) 95 09/26/18 09:00 Labs: CBC, BMP 09/26/18 06:30 09/26/18 06:30 INR, PTT INR 0.99 (0.83-1.09) 09/23/18 10:10 Problem List - Problems (1) Cord compression Code(s): G95.20 - UNSPECIFIED CORD COMPRESSION (2) UTI (urinary tract infection) Code(s): N39.0 - URINARY TRACT INFECTION, SITE NOT SPECIFIED (3) Diabetes Code(s): E11.9 - TYPE 2 DIABETES MELLITUS WITHOUT COMPLICATIONS (4) Cervical myelopathy Code(s): G95.9 - DISEASE OF SPINAL CORD, UNSPECIFIED
[2018-09-26] MEDS ORDERED: INSULIN (NOVOLOG) ASPART 100 UNITS/ML 10ML VIAL ONE (20:38)
[2018-09-26] MEDS: ATORVASTATIN CA 20 MG TABLET (FP) PO SCH (21:03)
[2018-09-27] MEDS: ACETAMINOPHEN 325 MG TABLET (FP) PO PRN ×2 (00:01→15:43)
[2018-09-27] MEDS: INSULIN SLIDING SCALE (NOVOLOG) 1 VIAL SQ SCH ×6 (01:57→21:33)
[2018-09-27] MEDS: diazePAM 5 MG TABLET PO SCH (02:18)
[2018-09-27] MEDS: DOCUSATE SODIUM 100 MG CAPSULE (FP) PO SCH ×4 (06:01→21:21)
[2018-09-27] MEDS: INSULIN (LEVEMIR) 100 UNITS/ML UNITS SQ SCH (06:16)
[2018-09-27] MEDS: metFORMIN HCL 500 MG TABLET (FP) PO SCH ×2 (06:16→17:21)
[2018-09-27] MEDS: diphenhydrAMINE HCL 25 MG CAPSULE (FP) PO PRN ×3 (06:16→21:16)
[2018-09-27] MEDS: TIZANIDINE HCL 4 MG TABLET PO SCH ×2 (06:16→13:52)
--- NOTE | 2018-09-27 08:30 | PN ---
Progress Note (short form) - Note Progress Note: NEUROSURGERY POD #3 No new complaint Occ dyspnea which pt attributes to her asthma Incisional pain, less arm pain Some sore throat as expected Dysphagia after C3-4 procedure expected PE: Tmax 98.4, AF, VSS General- CV- RR; Lungs- decreased BS at bases; Abd- benign CN- intact; Motor- B Deltoid 4+, B hands 2, B B/BR/T 3/5 L sided slightly stronger; R LE 2-3, L LE 4+; Sensation- decreased LT/PP R arm down to leg but better; DTR- 2+ except decreased R ankle reflex Dressing C/D/I For C spine x-rays (pt declined yesterday) Recommend rehab, also discussed Encouraged ROM exercises even when in bed 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
[2018-09-27] MEDS: diazePAM 2 MG TABLET PO SCH ×3 (09:32→21:16)
[2018-09-27] MEDS: LORATADINE 10 MG TABLET PO SCH (09:37)
[2018-09-27] MEDS ORDERED: PT OWN MED DRAWER 7, Y5N ONE ×3 (09:43→21:06)
[2018-09-27] MEDS: AMITRIPTYLINE HCL 25 MG TABLET (FP) PO SCH ×2 (09:46→21:17)
--- NOTE | 2018-09-27 11:43 | PN ---
Progress Note (short form) - Note Progress Note: Pain Follow up Patient is very drowsy. 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 Catina Tracy MD.
[2018-09-27] MEDS: ALBUTEROL SO4 2.5/IPRATROPIUM 0.5 INH SOL 3 ML VIAL.NEB. NEB PRN (11:52)
[2018-09-27] MEDS: D5-1/2NS+20 MEQ KCL - 20 MEQ/1,000 ML INFUS.BAG IV SCH (12:01)
--- NOTE | 2018-09-27 16:57 | PN ---
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 - Current Medication List Current Medications: Active Medications Acetaminophen (Tylenol -) 650 mg PO Q6H PRN PRN Reason: pain Last Admin: 09/27/18 15:43 Dose: 650 mg Albuterol/Ipratropium (Duoneb -) 1 amp NEB Q6H PRN PRN Reason: SHORTNESS OF BREATH Last Admin: 09/27/18 11:52 Dose: 1 amp Amitriptyline HCl (Elavil -) 50 mg PO DAILY [facility] Last Admin: 09/27/18 09:46 Dose: 50 mg Atorvastatin Calcium (Lipitor -) 20 mg PO HS [facility] Last Admin: 09/26/18 21:03 Dose: 20 mg Diazepam (Valium -) 2 mg PO TID [facility] Last Admin: 09/27/18 13:52 Dose: 2 mg Diphenhydramine HCl (Benadryl -) 25 mg PO Q6H PRN PRN Reason: FOR ITCHING Last Admin: 09/27/18 15:48 Dose: 25 mg Docusate Sodium (Colace -) 100 mg PO TID [facility] Last Admin: 09/27/18 13:52 Dose: 100 mg Insulin Aspart (Novolog Vial Sliding Scale -) 1 vial SQ Q4HPO [facility]; Protocol Last Admin: 09/27/18 13:59 Dose: Not Given Insulin Detemir (Levemir Vial) 25 units SQ AM [facility] Last Admin: 09/27/18 06:16 Dose: 25 unit Loratadine (Claritin -) 10 mg PO DAILY [facility] Last Admin: 09/27/18 09:37 Dose: 10 mg Metformin HCl (Glucophage -) 1,000 mg PO BID@0700,1630 [facility] Last Admin: 09/27/18 06:16 Dose: 1,000 mg Ondansetron HCl (Zofran Injection) 4 mg IVPUSH Q6H PRN PRN Reason: NAUSEA AND/OR VOMITING Ondansetron HCl (Zofran Injection) 4 mg IVPUSH Q4H PRN PRN Reason: NAUSEA AND/OR VOMITING Promethazine HCl (Phenergan Injection -) 12.5 mg IVPB Q6H PRN PRN Reason: NAUSEA AND/OR VOMITING Tizanidine HCl (Tizanidine Hcl) 4 mg PO TID [facility] Last Admin: 09/27/18 13:52 Dose: 4 mg Tramadol HCl (Ultram -) 50 mg PO Q4H PRN PRN Reason: PAIN LEVEL 4 - 6 - Objective Vital Signs: Vital Signs Temperature 98.2 F 09/27/18 14:32 Pulse Rate 97 H 09/27/18 14:32 Respiratory Rate 20 09/27/18 14:32 Blood Pressure 153/74 09/27/18 14:32 O2 Sat by Pulse Oximetry (%) 96 09/27/18 09:00 Constitutional: Yes: No Distress HENT: Yes: Other (neck collar) Neck: Yes: Supple Cardiovascular: Yes: Regular Rate and Rhythm Respiratory: Yes: CTA Bilaterally Gastrointestinal: Yes: Normal Bowel Sounds Extremities: Yes: WNL Edema: No Peripheral Pulses WNL: Yes Neurological: Yes: Alert, Oriented Labs: CBC, BMP 09/26/18 06:30 09/26/18 06:30 INR, PTT INR 0.99 (0.83-1.09) 09/23/18 10:10 Problem List - Problems (1) Weakness Code(s): R53.1 - WEAKNESS (2) Hip pain, bilateral Code(s): M25.551 - PAIN IN RIGHT HIP; M25.552 - PAIN IN LEFT HIP (3) UTI (urinary tract infection) Code(s): N39.0 - URINARY TRACT INFECTION, SITE NOT SPECIFIED (4) Cervical myelopathy Code(s): G95.9 - DISEASE OF SPINAL CORD, UNSPECIFIED (5) Cord compression Assessment/Plan: s/p cervical laminectomy prn pain meds neuro surgery on board PT Code(s): G95.20 - UNSPECIFIED CORD COMPRESSION (6) Diabetes Assessment/Plan: insulin bgms Code(s): E11.9 - TYPE 2 DIABETES MELLITUS WITHOUT COMPLICATIONS Assessment/Plan covering for DR DEMOND CASTILLO
--- NOTE | 2018-09-27 18:10 | PN ---
Progress Note (short form) - Note Progress Note: NEUROLOGY PROGRESS: Events reviewed and discussed with Dr. Rowe. Pt still c/o neck pain. Swallowing better. Had Bedside PT x 2 days. Claims no BM post-op. In firm cervical collar Grasps 4-/5. Right triceps, finger extensors 2/5. Elevates both legs against gravity. Ankle DF 5/5. Feels vibration both feet (L>R). IMP: Slight improvement in myelopathy s/p cervical decompression. Plan: Continue pain management. Bowel regimen. Mobilize OO Bed to chair. Continue PT. Decrease tizanidine to 2 mg q8hrs and amitriptyline to 25 q HS. Hall rehab transfer if possible. Thank you very much, hSadi Colón MD
[2018-09-27] MEDS: ATORVASTATIN CA 20 MG TABLET (FP) PO SCH (21:17)
[2018-09-28] MEDS: traMADol HCL 50 MG TABLET PO PRN ×2 (00:11→04:15)
[2018-09-28] MEDS: INSULIN SLIDING SCALE (NOVOLOG) 1 VIAL SQ SCH ×6 (02:56→21:55)
[2018-09-28] MEDS: ACETAMINOPHEN 325 MG TABLET (FP) PO PRN ×3 (03:10→17:33)
[2018-09-28] MEDS: diphenhydrAMINE HCL 25 MG CAPSULE (FP) PO PRN ×3 (03:10→21:54)
[2018-09-28] MEDS: DOCUSATE SODIUM 100 MG CAPSULE (FP) PO SCH ×4 (06:17→22:04)
[2018-09-28] MEDS: INSULIN (LEVEMIR) 100 UNITS/ML UNITS SQ SCH (06:19)
[2018-09-28] MEDS: diazePAM 2 MG TABLET PO SCH ×3 (06:20→21:55)
[2018-09-28] MEDS: metFORMIN HCL 500 MG TABLET (FP) PO SCH ×2 (06:20→17:26)
[2018-09-28] MEDS ORDERED: INSULIN (NOVOLOG) ASPART 100 UNITS/ML 10ML VIAL ONE (07:00)
[2018-09-28 07:23] LABS: BASO % 0.3 % (0-2.0); HEMATOCRIT 33.4 % (32.4-45.2); HEMOGLOBIN 11.1 GM/dL (10.7-15.3); LYMPH % 15.8 % (8-40); MCH 29.1 pg (25.7-33.7); MCHC 33.3 g/dl (32.0-36.0); MEAN CELL VOLUME 87.5 fl (80-96); MEAN PLT VOLUME 9.7 fl (7.5-11.1); MONO % 10.1 % (3.8-10.2); NEUT % 71.8 % (42.8-82.8); PLATELET COUNT 209 K/MM3 (134-434); RBC 3.82 M/mm3 (3.60-5.2); RDW 13.4 % (11.6-15.6); WHITE BLOOD COUNT 11.1 K/mm3 (4.0-10.0)
[2018-09-28 07:33] LABS: ALBUMIN 2.8 g/dl (3.4-5.0); ALK PHOS 96 U/L (45-117); ANION GAP 6 MMOL/L (8-16); BILIRUBIN,TOTAL 0.5 mg/dL (0.2-1); BLOOD UREA NITROGEN 10 mg/dL (7-18); CALCIUM 8.8 mg/dL (8.5-10.1); CHLORIDE 98 mmol/L (98-107); CO2 32 mmol/L (21-32); CREATININE 0.6 mg/dL (0.55-1.3); GLUCOSE,RANDOM 81 mg/dL (74-106); POTASSIUM 4.2 mmol/L (3.5-5.1); SGOT/AST 14 U/L (15-37); SGPT/ALT 21 U/L (13-61); SODIUM 136 mmol/L (136-145); TOT PROT 6.2 g/dl (6.4-8.2)
[2018-09-28] MEDS ORDERED: oxyCODONE HCL 5 MG TABLET PO PRN (09:23)
--- NOTE | 2018-09-28 09:29 | PN ---
Progress Note (short form) - Note Progress Note: NEUROSURGERY POD #4 Some R arm burning when Lyrica stopped Occ dyspnea which pt attributes to her asthma Incisional pain, less arm pain Some sore throat Dysphagia after C3-4 procedure expected PE: AF, VSS General- CV- RR; Lungs- decreased BS at bases; Abd- benign CN- intact; Motor- B Deltoid 4+, B hands 4-, B B/BR/T 3/5 L sided slightly stronger; R LE 2-3, L LE 4+; Sensation- decreased LT/PP R arm down to leg but better; DTR- 2+ except decreased R ankle reflex Dressing C/D/I Collar in place For C spine x-rays (pt declined yesterday and the day before despite being requested by RN and myself on multiple occasions) Recommend rehab, also discussed Encouraged ROM exercises even when in bed Transition to oxycodone (has itchiness with oxycodone and hydromorphone, discussed with pharmacy, add benadryl) Restarted Lyrica PT/OOB- rehab Slowly adv diet SCD's when in bed DVT prophylaxis
[2018-09-28] MEDS ORDERED: diphenhydrAMINE HCL 25 MG CAPSULE (FP) PO ONE (13:00)
[2018-09-28] MEDS: PREGABALIN 75 MG CAPSULE PO SCH ×2 (13:05→21:54)
--- NOTE | 2018-09-28 15:33 | PN ---
Progress Note, Physician - Current Medication List Current Medications: Active Medications Acetaminophen (Tylenol -) 650 mg PO Q6H PRN PRN Reason: pain Last Admin: 09/28/18 09:52 Dose: 650 mg Albuterol/Ipratropium (Duoneb -) 1 amp NEB Q6H PRN PRN Reason: SHORTNESS OF BREATH Last Admin: 09/27/18 11:52 Dose: 1 amp Amitriptyline HCl (Elavil -) 25 mg PO [facility] Last Admin: 09/27/18 21:17 Dose: 25 mg Atorvastatin Calcium (Lipitor -) 20 mg PO [facility] Last Admin: 09/27/18 21:17 Dose: 20 mg Diazepam (Valium -) 2 mg PO TID [facility] Last Admin: 09/28/18 13:05 Dose: 2 mg Diphenhydramine HCl (Benadryl -) 25 mg PO Q6H PRN PRN Reason: FOR ITCHING Last Admin: 09/28/18 09:46 Dose: 25 mg Docusate Sodium (Colace -) 100 mg PO TID [facility] Last Admin: 09/28/18 13:05 Dose: 100 mg Insulin Aspart (Novolog Vial Sliding Scale -) 1 vial SQ [facility]; Protocol Insulin Detemir (Levemir Vial) 18 units SQ AM [facility] Metformin HCl (Glucophage -) 1,000 mg PO BID@0700,1630 [facility] Last Admin: 09/28/18 06:20 Dose: 1,000 mg Ondansetron HCl (Zofran Injection) 4 mg IVPUSH Q6H PRN PRN Reason: NAUSEA AND/OR VOMITING Ondansetron HCl (Zofran Injection) 4 mg IVPUSH Q4H PRN PRN Reason: NAUSEA AND/OR VOMITING Oxycodone HCl (Roxicodone -) 5 mg PO Q4H PRN PRN Reason: PAIN LEVEL 4 - 6 Last Admin: 09/28/18 09:45 Dose: 5 mg Pregabalin (Lyrica -) 75 mg PO TID [facility] Last Admin: 09/28/18 13:05 Dose: 75 mg Promethazine HCl (Phenergan Injection -) 12.5 mg IVPB Q6H PRN PRN Reason: NAUSEA AND/OR VOMITING Tizanidine HCl (Tizanidine Hcl) 2 mg PO Q8H PRN PRN Reason: MUSCLE SPASMS - Objective Vital Signs: Vital Signs Temperature 97.6 F 09/28/18 07:06 Pulse Rate 82 09/28/18 07:06 Respiratory Rate 20 09/28/18 09:00 Blood Pressure 136/75 09/28/18 07:06 O2 Sat by Pulse Oximetry (%) 97 09/28/18 09:00 Labs: CBC, BMP 09/28/18 06:30 09/28/18 06:30 INR, PTT INR 0.99 (0.83-1.09) 09/23/18 10:10 Problem List - Problems (1) Cord compression Code(s): G95.20 - UNSPECIFIED CORD COMPRESSION (2) UTI (urinary tract infection) Code(s): N39.0 - URINARY TRACT INFECTION, SITE NOT SPECIFIED (3) Diabetes Code(s): E11.9 - TYPE 2 DIABETES MELLITUS WITHOUT COMPLICATIONS (4) Cervical myelopathy Code(s): G95.9 - DISEASE OF SPINAL CORD, UNSPECIFIED
[2018-09-28] MEDS ORDERED: INSULIN (LEVEMIR) 100 UNITS/ML UNITS SQ ONE (20:24)
--- NOTE | 2018-09-28 20:28 | PN ---
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,intake is still not best iv fluid for hydration - Current Medication List Current Medications: Active Medications Acetaminophen (Tylenol -) 650 mg PO Q6H PRN PRN Reason: pain Last Admin: 09/28/18 17:33 Dose: 650 mg Albuterol/Ipratropium (Duoneb -) 1 amp NEB Q6H PRN PRN Reason: SHORTNESS OF BREATH Last Admin: 09/27/18 11:52 Dose: 1 amp Amitriptyline HCl (Elavil -) 25 mg PO [facility] Last Admin: 09/27/18 21:17 Dose: 25 mg Atorvastatin Calcium (Lipitor -) 20 mg PO [facility] Last Admin: 09/27/18 21:17 Dose: 20 mg Diazepam (Valium -) 2 mg PO TID [facility] Last Admin: 09/28/18 13:05 Dose: 2 mg Diphenhydramine HCl (Benadryl -) 25 mg PO Q6H PRN PRN Reason: FOR ITCHING Last Admin: 09/28/18 09:46 Dose: 25 mg Docusate Sodium (Colace -) 100 mg PO TID [facility] Last Admin: 09/28/18 13:05 Dose: 100 mg Insulin Aspart (Novolog Vial Sliding Scale -) 1 vial SQ [facility]; Protocol Last Admin: 09/28/18 17:16 Dose: Not Given Insulin Detemir (Levemir Vial) 10 units SQ AM [facility] Metformin HCl (Glucophage -) 500 mg PO BID@0700,1630 [facility] Ondansetron HCl (Zofran Injection) 4 mg IVPUSH Q6H PRN PRN Reason: NAUSEA AND/OR VOMITING Ondansetron HCl (Zofran Injection) 4 mg IVPUSH Q4H PRN PRN Reason: NAUSEA AND/OR VOMITING Pregabalin (Lyrica -) 75 mg PO TID [facility] Last Admin: 09/28/18 13:05 Dose: 75 mg Promethazine HCl (Phenergan Injection -) 12.5 mg IVPB Q6H PRN PRN Reason: NAUSEA AND/OR VOMITING Tizanidine HCl (Tizanidine Hcl) 2 mg PO Q8H PRN PRN Reason: MUSCLE SPASMS - Objective Vital Signs: Vital Signs Temperature 97.8 F 09/28/18 11:00 Pulse Rate 86 09/28/18 11:00 Respiratory Rate 20 09/28/18 11:00 Blood Pressure 142/70 09/28/18 11:00 O2 Sat by Pulse Oximetry (%) 97 09/28/18 09:00 Constitutional: Yes: Calm Eyes: Yes: EOM Intact HENT: Yes: Normocephalic Neck: Yes: Trachea Midline Cardiovascular: Yes: Regular Rate and Rhythm Respiratory: Yes: CTA Bilaterally Gastrointestinal: Yes: Normal Bowel Sounds ...Rectal Exam: Yes: Deferred Musculoskeletal: Yes: Muscle Weakness Extremities: Yes: WNL Psychiatric: Yes: Alert, Oriented Labs: CBC, BMP 09/28/18 06:30 09/28/18 06:30 INR, PTT INR 0.99 (0.83-1.09) 09/23/18 10:10 Problem List - Problems (1) Cervical myelopathy Code(s): G95.9 - DISEASE OF SPINAL CORD, UNSPECIFIED (2) Cord compression Code(s): G95.20 - UNSPECIFIED CORD COMPRESSION (3) Diabetes Code(s): E11.9 - TYPE 2 DIABETES MELLITUS WITHOUT COMPLICATIONS (4) UTI (urinary tract infection) Code(s): N39.0 - URINARY TRACT INFECTION, SITE NOT SPECIFIED (5) Weakness Code(s): R53.1 - WEAKNESS (6) Hip pain, bilateral Code(s): M25.551 - PAIN IN RIGHT HIP; M25.552 - PAIN IN LEFT HIP (7) Trauma Code(s): T14.90 - INJURY, UNSPECIFIED * DO NOT USE * Assessment/Plan Current Active Problems Cervical myelopathy (Acute) Cord compression (Acute) Diabetes (Acute) UTI (urinary tract infection) (Acute) Weakness (Acute) Abnormal Lab Results 09/28/18 09/28/18 06:30 06:30 WBC 11.1 H Anion Gap 6 L AST 14 L Total Protein 6.2 L Albumin 2.8 L Laboratory Results - last 24 hr 09/27/18 09/28/18 09/28/18 21:29 06:16 06:30 WBC 11.1 H RBC 3.82 Hgb 11.1 Hct 33.4 MCV 87.5 MCH 29.1 MCHC 33.3 RDW 13.4 Plt Count 209 MPV 9.7 Absolute Neuts (auto) 8.0 Neutrophils % 71.8 Lymphocytes % 15.8 D Monocytes % 10.1 Eosinophils % 2.0 D Basophils % 0.3 Nucleated RBC % 0 Sodium Potassium Chloride Carbon Dioxide Anion Gap BUN Creatinine Creat Clearance w eGFR POC Glucometer 108 138 Random Glucose Calcium Total Bilirubin AST ALT Alkaline Phosphatase Total Protein Albumin 09/28/18 09/28/18 09/28/18 06:30 09:41 13:25 WBC RBC Hgb Hct MCV MCH MCHC RDW Plt Count MPV Absolute Neuts (auto) Neutrophils % Lymphocytes % Monocytes % Eosinophils % Basophils % Nucleated RBC % Sodium 136 Potassium 4.2 Chloride 98 Carbon Dioxide 32 Anion Gap 6 L BUN 10 Creatinine 0.6 Creat Clearance w eGFR > 60 POC Glucometer 92 90 Random Glucose 81 Calcium 8.8 Total Bilirubin 0.5 AST 14 L ALT 21 Alkaline Phosphatase 96 Total Protein 6.2 L Albumin 2.8 L 09/28/18 15:30 WBC RBC Hgb Hct MCV MCH MCHC RDW Plt Count MPV Absolute Neuts (auto) Neutrophils % Lymphocytes % Monocytes % Eosinophils % Basophils % Nucleated RBC % Sodium Potassium Chloride Carbon Dioxide Anion Gap BUN Creatinine Creat Clearance w eGFR POC Glucometer 123 Random Glucose Calcium Total Bilirubin AST ALT Alkaline Phosphatase Total Protein Albumin Laboratory Tests 09/27/18 09/27/18 09/27/18 01:48 06:22 09:53 POC Glucometer 105 108 140 09/27/18 09/27/18 09/27/18 13:58 17:18 21:29 POC Glucometer 119 151 108 plan: change to metformin 500mg bid levemir 10 units am as appetite improves may need higher doses physical therapy neurology follow up
[2018-09-28] MEDS: AMITRIPTYLINE HCL 25 MG TABLET (FP) PO SCH (21:54)
[2018-09-28] MEDS: TIZANIDINE HCL 2 MG TABLET PO PRN (21:55)
[2018-09-28] MEDS: ATORVASTATIN CA 20 MG TABLET (FP) PO SCH (21:55)
[2018-09-29] MEDS: ACETAMINOPHEN 325 MG TABLET (FP) PO PRN ×3 (01:19→16:59)
[2018-09-29] MEDS: DOCUSATE SODIUM 100 MG CAPSULE (FP) PO SCH ×3 (05:02→21:07)
[2018-09-29] MEDS: INSULIN SLIDING SCALE (NOVOLOG) 1 VIAL SQ SCH ×4 (06:18→21:06)
[2018-09-29] MEDS: INSULIN (LEVEMIR) 100 UNITS/ML UNITS SQ SCH (06:19)
[2018-09-29] MEDS: TIZANIDINE HCL 2 MG TABLET PO PRN ×2 (06:19→21:06)
[2018-09-29] MEDS: diazePAM 2 MG TABLET PO SCH ×3 (06:20→21:06)
[2018-09-29] MEDS: metFORMIN HCL 500 MG TABLET (FP) PO SCH ×2 (06:20→16:58)
[2018-09-29] MEDS: PREGABALIN 75 MG CAPSULE PO SCH ×3 (06:20→21:06)
[2018-09-29] MEDS ORDERED: INSULIN (LEVEMIR) 100 UNITS/ML UNITS SQ SCH ×2 (07:00)
[2018-09-29 07:13] LABS: BASO % 0.6 % (0-2.0); EOS % 2.2 % (0-4.5); HEMATOCRIT 35.1 % (32.4-45.2); HEMOGLOBIN 11.9 GM/dL (10.7-15.3); LYMPH % 17.9 % (8-40); MCH 29.7 pg (25.7-33.7); MCHC 33.9 g/dl (32.0-36.0); MEAN CELL VOLUME 87.5 fl (80-96); MEAN PLT VOLUME 9.1 fl (7.5-11.1); MONO % 9.9 % (3.8-10.2); NEUT % 69.4 % (42.8-82.8); PLATELET COUNT 266 K/MM3 (134-434); RBC 4.02 M/mm3 (3.60-5.2); RDW 13.4 % (11.6-15.6); WHITE BLOOD COUNT 10.3 K/mm3 (4.0-10.0)
[2018-09-29 07:49] LABS: ALBUMIN 2.9 g/dl (3.4-5.0); ALK PHOS 111 U/L (45-117); ANION GAP 8 MMOL/L (8-16); BILIRUBIN,TOTAL 0.5 mg/dL (0.2-1); BLOOD UREA NITROGEN 10 mg/dL (7-18); CALCIUM 9.1 mg/dL (8.5-10.1); CHLORIDE 98 mmol/L (98-107); CO2 32 mmol/L (21-32); CREATININE 0.6 mg/dL (0.55-1.3); GLUCOSE,RANDOM 89 mg/dL (74-106); POTASSIUM 4.3 mmol/L (3.5-5.1); SGOT/AST 13 U/L (15-37); SGPT/ALT 22 U/L (13-61); SODIUM 138 mmol/L (136-145); TOT PROT 6.7 g/dl (6.4-8.2)
--- NOTE | 2018-09-29 11:22 | PN ---
Progress Note (short form) - Note Progress Note: NEUROSURGERY POD #5 Incisional pain, less arm pain Some sore throat and secretions Dysphagia after C3-4 procedure expected PE: AF, VSS General- CV- RR; Lungs- decreased BS at bases; Abd- benign CN- intact; Motor- B Deltoid 4+, B hands 4-, B B/BR/T 3/5 L sided slightly stronger; R LE 2-3, L LE 4+; Sensation- decreased LT/PP R arm down to leg but better; DTR- 2+ except decreased R ankle reflex Dressing C/D/I Collar in place For C spine x-rays (pt declined yesterday and the day before despite being requested by RN and myself on multiple occasions) Recommend rehab, also discussed Encouraged ROM exercises even when in bed and for more activities OOB Restarted Doron, on zanaflex PT/OOB- rehab Slowly adv diet Decadron 4 mg IVP SCD's when in bed DVT prophylaxis
[2018-09-29] MEDS ORDERED: DEXAMETHASONE SOD PHOSPHATE 4 MG/1 ML VIAL IVPUSH ONE (11:33)
--- NOTE | 2018-09-29 16:29 | PN ---
Progress Note, Physician - Current Medication List Current Medications: Active Medications Acetaminophen (Tylenol -) 650 mg PO Q6H PRN PRN Reason: pain Last Admin: 09/29/18 11:40 Dose: 650 mg Albuterol/Ipratropium (Duoneb -) 1 amp NEB Q6H PRN PRN Reason: SHORTNESS OF BREATH Last Admin: 09/27/18 11:52 Dose: 1 amp Amitriptyline HCl (Elavil -) 25 mg PO [facility] Last Admin: 09/28/18 21:54 Dose: 25 mg Atorvastatin Calcium (Lipitor -) 20 mg PO [facility] Last Admin: 09/28/18 21:55 Dose: 20 mg Diazepam (Valium -) 2 mg PO TID [facility] Last Admin: 09/29/18 15:04 Dose: 2 mg Diphenhydramine HCl (Benadryl -) 50 mg PO Q8H PRN PRN Reason: FOR ITCHING Docusate Sodium (Colace -) 100 mg PO TID [facility] Last Admin: 09/29/18 15:04 Dose: Not Given Insulin Aspart (Novolog Vial Sliding Scale -) 1 vial SQ [facility]; Protocol Last Admin: 09/29/18 11:44 Dose: 2 units Insulin Detemir (Levemir Vial) 10 units SQ DAILY@0700 [facility] Last Admin: 09/29/18 06:19 Dose: 10 units Metformin HCl (Glucophage -) 500 mg PO BID@0700,1630 [facility] Last Admin: 09/29/18 06:20 Dose: 500 mg Ondansetron HCl (Zofran Injection) 4 mg IVPUSH Q6H PRN PRN Reason: NAUSEA AND/OR VOMITING Ondansetron HCl (Zofran Injection) 4 mg IVPUSH Q4H PRN PRN Reason: NAUSEA AND/OR VOMITING Pregabalin (Lyrica -) 75 mg PO TID [facility] Last Admin: 09/29/18 15:04 Dose: 75 mg Promethazine HCl (Phenergan Injection -) 12.5 mg IVPB Q6H PRN PRN Reason: NAUSEA AND/OR VOMITING Tizanidine HCl (Tizanidine Hcl) 2 mg PO Q8H PRN PRN Reason: MUSCLE SPASMS Last Admin: 09/29/18 06:19 Dose: 2 mg - Objective Vital Signs: Vital Signs Temperature 97.8 F 01/20/19 14:55 Pulse Rate 86 09/29/18 14:55 Respiratory Rate 18 09/29/18 14:55 Blood Pressure 133/69 09/29/18 14:55 O2 Sat by Pulse Oximetry (%) 97 09/28/18 21:00 Labs: CBC, BMP 09/29/18 06:00 09/29/18 06:00 INR, PTT INR 0.99 (0.83-1.09) 09/23/18 10:10 Problem List - Problems (1) Cord compression Code(s): G95.20 - UNSPECIFIED CORD COMPRESSION (2) UTI (urinary tract infection) Code(s): N39.0 - URINARY TRACT INFECTION, SITE NOT SPECIFIED (3) Diabetes Code(s): E11.9 - TYPE 2 DIABETES MELLITUS WITHOUT COMPLICATIONS (4) Cervical myelopathy Code(s): G95.9 - DISEASE OF SPINAL CORD, UNSPECIFIED
[2018-09-29] MEDS ORDERED: INSULIN (NOVOLOG) ASPART 100 UNITS/ML 10ML VIAL ONE (20:32)
[2018-09-29] MEDS: AMITRIPTYLINE HCL 25 MG TABLET (FP) PO SCH (21:06)
[2018-09-29] MEDS: ATORVASTATIN CA 20 MG TABLET (FP) PO SCH (21:06)
[2018-09-30] MEDS: DOCUSATE SODIUM 100 MG CAPSULE (FP) PO SCH ×3 (05:52→22:31)
[2018-09-30] MEDS: INSULIN SLIDING SCALE (NOVOLOG) 1 VIAL SQ SCH ×4 (06:03→22:43)
[2018-09-30] MEDS: INSULIN (LEVEMIR) 100 UNITS/ML UNITS SQ SCH (06:04)
[2018-09-30] MEDS: PREGABALIN 75 MG CAPSULE PO SCH ×3 (06:05→22:31)
[2018-09-30] MEDS: diazePAM 2 MG TABLET PO SCH ×3 (06:05→22:31)
[2018-09-30] MEDS: ACETAMINOPHEN 325 MG TABLET (FP) PO PRN ×2 (06:05→14:23)
[2018-09-30] MEDS: metFORMIN HCL 500 MG TABLET (FP) PO SCH ×2 (06:05→17:34)
--- NOTE | 2018-09-30 10:22 | PN ---
Progress Note (short form) - Note Progress Note: NEUROSURGERY POD #6 Incisional pain, less arm pain Sore throat , soreness, and secretions PE: Tmax 97.6, AF, VSS General- CV- RR; Lungs- decreased BS at bases; Abd- benign; mild hoarseness CN- intact; Motor- B Deltoid 4+, B hands 4-, B B/BR/T 3/5 L sided slightly stronger; R LE 2-3, L LE 4+; Sensation- decreased LT/PP R arm down to leg but better; DTR- 2+ except decreased R ankle reflex Dressing C/D/I Collar in place For C spine x-rays (pt declined x4 days straight despite being requested by RN and myself on multiple occasions) Recommend rehab- [place] Encouraged ROM exercises even when in bed and for more activities OOB On Lyrica and zanaflex PT/OOB- rehab Slowly adv diet Decadron 4 mg IVP x 1 SCD's when in bed DVT prophylaxis
[2018-09-30] MEDS ORDERED: PT OWN MED DRAWER 7, Y5N ONE (14:19)
[2018-09-30] MEDS: diphenhydrAMINE HCL 25 MG CAPSULE (FP) PO PRN (18:09)
--- NOTE | 2018-09-30 18:58 | PN ---
Progress Note, Physician - Current Medication List Current Medications: Active Medications Acetaminophen (Tylenol -) 650 mg PO Q6H PRN PRN Reason: pain Last Admin: 09/30/18 14:23 Dose: 650 mg Albuterol/Ipratropium (Duoneb -) 1 amp NEB Q6H PRN PRN Reason: SHORTNESS OF BREATH Last Admin: 09/27/18 11:52 Dose: 1 amp Amitriptyline HCl (Elavil -) 25 mg PO [facility] Last Admin: 09/29/18 21:06 Dose: 25 mg Atorvastatin Calcium (Lipitor -) 20 mg PO [facility] Last Admin: 09/29/18 21:06 Dose: 20 mg Diazepam (Valium -) 2 mg PO TID [facility] Last Admin: 09/30/18 14:21 Dose: 2 mg Diphenhydramine HCl (Benadryl -) 50 mg PO Q8H PRN PRN Reason: FOR ITCHING Last Admin: 09/30/18 18:09 Dose: 50 mg Docusate Sodium (Colace -) 100 mg PO TID [facility] Last Admin: 09/30/18 14:21 Dose: Not Given Insulin Aspart (Novolog Vial Sliding Scale -) 1 vial SQ [facility]; Protocol Last Admin: 09/30/18 17:38 Dose: Not Given Insulin Detemir (Levemir Vial) 10 units SQ DAILY@0700 [facility] Last Admin: 09/30/18 06:04 Dose: 10 units Metformin HCl (Glucophage -) 500 mg PO BID@0700,1630 [facility] Last Admin: 09/30/18 17:34 Dose: 500 mg Ondansetron HCl (Zofran Injection) 4 mg IVPUSH Q4H PRN PRN Reason: NAUSEA AND/OR VOMITING Pregabalin (Lyrica -) 75 mg PO TID [facility] Last Admin: 09/30/18 14:21 Dose: 75 mg Promethazine HCl (Phenergan Injection -) 12.5 mg IVPB Q6H PRN PRN Reason: NAUSEA AND/OR VOMITING Tizanidine HCl (Tizanidine Hcl) 2 mg PO Q8H PRN PRN Reason: MUSCLE SPASMS Last Admin: 09/29/18 21:06 Dose: 2 mg - Objective Vital Signs: Vital Signs Temperature 98.0 F 09/30/18 15:29 Pulse Rate 95 H 09/30/18 15:29 Respiratory Rate 20 09/30/18 15:29 Blood Pressure 119/64 09/30/18 15:29 O2 Sat by Pulse Oximetry (%) 100 09/30/18 09:00 Labs: CBC, BMP 09/29/18 06:00 09/29/18 06:00 INR, PTT INR 0.99 (0.83-1.09) 09/23/18 10:10 Problem List - Problems (1) Cord compression Code(s): G95.20 - UNSPECIFIED CORD COMPRESSION (2) UTI (urinary tract infection) Code(s): N39.0 - URINARY TRACT INFECTION, SITE NOT SPECIFIED (3) Diabetes Code(s): E11.9 - TYPE 2 DIABETES MELLITUS WITHOUT COMPLICATIONS (4) Cervical myelopathy Code(s): G95.9 - DISEASE OF SPINAL CORD, UNSPECIFIED
[2018-09-30] MEDS: AMITRIPTYLINE HCL 25 MG TABLET (FP) PO SCH (22:31)
[2018-09-30] MEDS: ATORVASTATIN CA 20 MG TABLET (FP) PO SCH (22:31)
[2018-10-01] MEDS: ACETAMINOPHEN 325 MG TABLET (FP) PO PRN ×3 (03:47→18:21)
[2018-10-01] MEDS: DOCUSATE SODIUM 100 MG CAPSULE (FP) PO SCH ×4 (05:58→22:45)
[2018-10-01] MEDS: diazePAM 2 MG TABLET PO SCH ×3 (05:58→22:45)
[2018-10-01] MEDS: PREGABALIN 75 MG CAPSULE PO SCH ×3 (05:58→22:45)
[2018-10-01] MEDS: metFORMIN HCL 500 MG TABLET (FP) PO SCH ×2 (06:41→17:35)
[2018-10-01] MEDS: INSULIN SLIDING SCALE (NOVOLOG) 1 VIAL SQ SCH ×4 (06:44→22:45)
[2018-10-01] MEDS: INSULIN (LEVEMIR) 100 UNITS/ML UNITS SQ SCH (07:12)
--- NOTE | 2018-10-01 08:19 | PN ---
Progress Note (short form) - Note Progress Note: NEUROSURGERY POD #7 Incisional pain, less arm pain Sore throat less PE: Tmax 98, VSS Voice more normal, less hoarseness General- CV- RR; Lungs- decreased BS at bases; Abd- benign; mild hoarseness CN- intact; Motor- B Deltoid 4+, B hands 4-, B B/BR/T 3/5 L sided slightly stronger; R LE 2-3, L LE 4+; Sensation- decreased LT/PP R arm down to leg but better; DTR- 2+ except decreased R ankle reflex Dressing C/D/I Collar in place C spine x-rays- intact implants C3-4-5-6-7, lordosis maintained; prevertebral soft tissue swelling Recommend rehab- [facility] Encouraged ROM exercises even when in bed and for more activities OOB (pt is not motivated) On Lyrica and zanaflex PT/OOB- rehab Slowly adv diet SCD's when in bed DVT prophylaxis
[2018-10-01] MEDS ORDERED: SODIUM CHLORIDE 250 ML IV ONE (12:45)
[2018-10-01] MEDS ORDERED: TAMSULOSIN HCL 0.4 MG CAP PO ONE (12:45)
[2018-10-01] MEDS: diphenhydrAMINE HCL 25 MG CAPSULE (FP) PO PRN ×2 (13:34→22:53)
--- NOTE | 2018-10-01 18:02 | CON.GU ---
Consult Consult Specialty:: Referred by:: CARMEN Reason for Consultation:: urinary retention - History of Present Illness Chief Complaint: urinary retention History of Present Illness: 63 year old female S/P C3-C7 operative procedure. She had a mayorga post op and and has been unable to urinate. She reports that prior to the operation she had been experiencing incontinence, either urge or overflow for a long time. The duration of her neck issues is 12 years. She also has not had a bowel movement since the operation. She has 2 . - History Source History Provided By: Patient, Medical Record Limitations to Obtaining History: No Limitations - Past Medical History Renal/: Yes: Neurogenic Bladder - Alcohol/Substance Use Hx Alcohol Use: No - Smoking History Smoking history: Current every day smoker Have you smoked in the past 12 months: Yes Aproximately how many cigarettes per day: 10 Home Medications - Allergies Allergies/Adverse Reactions: Allergies Allergy/AdvReac Type Severity Reaction Status Date / Time egg [Egg] Allergy Verified 09/18/18 11:47 oxycodone [Oxycodone] Allergy Verified 09/18/18 11:47 Eggs Allergy Uncoded 09/18/18 11:47 - Home Medications Home Medications: Ambulatory Orders Metformin HCl [Glucophage] 500 mg PO BID #0 tablet 11/16/11 Tizanidine HCl [Zanaflex (Nf) -] 4 mg PO TID #0 tablet 11/16/11 Amitriptyline HCl [Elavil -] 50 mg PO DAILY 09/18/18 Cetirizine HCl [All Day Allergy] 10 mg PO DAILY 09/18/18 Simvastatin 40 mg PO DAILY 09/18/18 Pregabalin [Lyrica -] 150 mg PO BID 09/20/18 Review of Systems - Review of Systems Gastrointestinal: reports: Bloating, Constipation Genitourinary: reports: Frequency, Incontinence. denies: Burning, Dysuria, Flank Pain, Hematuria Physical Exam- Vital Signs: Vital Signs Temperature 97.9 F 10/01/18 17:15 Pulse Rate 98 H 10/01/18 17:15 Respiratory Rate 20 10/01/18 17:15 Blood Pressure 96/72 10/01/18 17:15 O2 Sat by Pulse Oximetry (%) 100 09/30/18 21:00 Renal/: Yes: Bladder Distention. No: CVA Tenderness - Left, CVA Tenderness - Right, Mayorga Present Labs: CBC, BMP 09/29/18 06:00 09/29/18 06:00 Problem List - Problems (1) Neurogenic bladder Assessment/Plan: will start flomax and urecholine. will need Urodynamics as outpatient. May need interstim implant. Code(s): N31.9 - NEUROMUSCULAR DYSFUNCTION OF BLADDER, UNSPECIFIED
--- NOTE | 2018-10-01 18:05 | PN ---
Progress Note, Physician History of Present Illness: Pt wearing C collar Pt having urinary retention - Current Medication List Current Medications: Active Medications Acetaminophen (Tylenol -) 650 mg PO Q6H PRN PRN Reason: pain Last Admin: 10/01/18 13:21 Dose: 650 mg Albuterol/Ipratropium (Duoneb -) 1 amp NEB Q6H PRN PRN Reason: SHORTNESS OF BREATH Last Admin: 09/27/18 11:52 Dose: 1 amp Amitriptyline HCl (Elavil -) 25 mg PO [facility] Last Admin: 09/30/18 22:31 Dose: 25 mg Atorvastatin Calcium (Lipitor -) 20 mg PO [facility] Last Admin: 09/30/18 22:31 Dose: 20 mg Bethanechol Chloride (Urecholine -) 10 mg PO TID [facility] Diazepam (Valium -) 2 mg PO TID [facility] Last Admin: 10/01/18 13:22 Dose: 2 mg Diphenhydramine HCl (Benadryl -) 50 mg PO Q8H PRN PRN Reason: FOR ITCHING Last Admin: 10/01/18 13:34 Dose: 50 mg Docusate Sodium (Colace -) 100 mg PO TID [facility] Last Admin: 10/01/18 13:41 Dose: Not Given Insulin Aspart (Novolog Vial Sliding Scale -) 1 vial SQ [facility]; Protocol Last Admin: 10/01/18 17:36 Dose: 2 units Insulin Detemir (Levemir Vial) 10 units SQ DAILY@0700 [facility] Last Admin: 10/01/18 07:12 Dose: 10 units Metformin HCl (Glucophage -) 500 mg PO BID@0700,1630 [facility] Last Admin: 10/01/18 17:35 Dose: 500 mg Ondansetron HCl (Zofran Injection) 4 mg IVPUSH Q4H PRN PRN Reason: NAUSEA AND/OR VOMITING Pregabalin (Lyrica -) 75 mg PO TID [facility] Last Admin: 10/01/18 13:22 Dose: 75 mg Promethazine HCl (Phenergan Injection -) 12.5 mg IVPB Q6H PRN PRN Reason: NAUSEA AND/OR VOMITING Tamsulosin HCl (Flomax -) 0.4 mg PO DAILY@0830 [facility] Tizanidine HCl (Tizanidine Hcl) 2 mg PO Q8H PRN PRN Reason: MUSCLE SPASMS Last Admin: 09/29/18 21:06 Dose: 2 mg - Objective Vital Signs: Vital Signs Temperature 97.9 F 10/01/18 17:15 Pulse Rate 98 H 10/01/18 17:15 Respiratory Rate 20 10/01/18 17:15 Blood Pressure 96/72 10/01/18 17:15 O2 Sat by Pulse Oximetry (%) 100 09/30/18 21:00 Cardiovascular: Yes: WNL, Regular Rate and Rhythm Respiratory: Yes: WNL, Regular, CTA Bilaterally Gastrointestinal: Yes: WNL, Normal Bowel Sounds, Soft Labs: CBC, BMP 09/29/18 06:00 09/29/18 06:00 INR, PTT INR 0.99 (0.83-1.09) 09/23/18 10:10 Problem List - Problems (1) Urinary retention Assessment/Plan: Start flomax Pt given Bolus of NS 250cc As per uro Code(s): R33.9 - RETENTION OF URINE, UNSPECIFIED (2) Cord compression Assessment/Plan: S/P partial corpectomies [id number] w/ decompression fusion and microdissection Cont oxycodone DC planning for am to rehab Cont IV decadron Code(s): G95.20 - UNSPECIFIED CORD COMPRESSION (3) UTI (urinary tract infection) Assessment/Plan: Will dc ceftriaxone Code(s): N39.0 - URINARY TRACT INFECTION, SITE NOT SPECIFIED (4) Diabetes Assessment/Plan: Cont sliding scale w/ coverage Cont metformin Steroids are causing increase in glucose Code(s): E11.9 - TYPE 2 DIABETES MELLITUS WITHOUT COMPLICATIONS (5) Cervical myelopathy Code(s): G95.9 - DISEASE OF SPINAL CORD, UNSPECIFIED
[2018-10-01] MEDS: ATORVASTATIN CA 20 MG TABLET (FP) PO SCH (22:45)
[2018-10-01] MEDS: BETHANECHOL CHLORIDE 10 MG TABLET PO SCH (22:45)
[2018-10-01] MEDS: AMITRIPTYLINE HCL 25 MG TABLET (FP) PO SCH (22:45)
[2018-10-02] MEDS: metFORMIN HCL 500 MG TABLET (FP) PO SCH ×2 (06:42→17:56)
[2018-10-02] MEDS: diazePAM 2 MG TABLET PO SCH ×3 (06:42→21:41)
[2018-10-02] MEDS: PREGABALIN 75 MG CAPSULE PO SCH ×3 (06:43→21:41)
[2018-10-02] MEDS: DOCUSATE SODIUM 100 MG CAPSULE (FP) PO SCH ×3 (06:43→21:41)
[2018-10-02] MEDS: BETHANECHOL CHLORIDE 10 MG TABLET PO SCH ×3 (06:43→22:19)
[2018-10-02] MEDS: INSULIN SLIDING SCALE (NOVOLOG) 1 VIAL SQ SCH ×4 (06:44→22:21)
[2018-10-02] MEDS: INSULIN (LEVEMIR) 100 UNITS/ML UNITS SQ SCH (06:44)
[2018-10-02] MEDS: ACETAMINOPHEN 325 MG TABLET (FP) PO PRN ×2 (06:48→13:55)
[2018-10-02] MEDS: diphenhydrAMINE HCL 25 MG CAPSULE (FP) PO PRN (06:50)
[2018-10-02 07:27] LABS: BASO % 1.1 % (0-2.0); EOS % 2.5 % (0-4.5); HEMATOCRIT 35.5 % (32.4-45.2); HEMOGLOBIN 11.8 GM/dL (10.7-15.3); LYMPH % 21.8 % (8-40); MCH 29.3 pg (25.7-33.7); MCHC 33.4 g/dl (32.0-36.0); MEAN PLT VOLUME 8.6 fl (7.5-11.1); MONO % 10.3 % (3.8-10.2); NEUT % 64.3 % (42.8-82.8); PLATELET COUNT 360 K/MM3 (134-434); RBC 4.04 M/mm3 (3.60-5.2); RDW 13.2 % (11.6-15.6); WHITE BLOOD COUNT 8.9 K/mm3 (4.0-10.0)
[2018-10-02 08:28] LABS: ALBUMIN 3.2 g/dl (3.4-5.0); ALK PHOS 109 U/L (45-117); ANION GAP 8 MMOL/L (8-16); BILIRUBIN,TOTAL 0.2 mg/dL (0.2-1); BLOOD UREA NITROGEN 20 mg/dL (7-18); CALCIUM 9.3 mg/dL (8.5-10.1); CHLORIDE 104 mmol/L (98-107); CO2 28 mmol/L (21-32); CREATININE 0.6 mg/dL (0.55-1.3); GLUCOSE,RANDOM 114 mg/dL (74-106); POTASSIUM 4.3 mmol/L (3.5-5.1); SGOT/AST 10 U/L (15-37); SGPT/ALT 20 U/L (13-61); SODIUM 139 mmol/L (136-145)
[2018-10-02] MEDS: TAMSULOSIN HCL 0.4 MG CAP PO SCH (09:01)
[2018-10-02] MEDS ORDERED: DEXAMETHASONE SOD PHOSPHATE 10 MG/1 ML VIAL ONE (10:11)
[2018-10-02] MEDS: ALBUTEROL SO4 2.5/IPRATROPIUM 0.5 INH SOL 3 ML VIAL.NEB. NEB PRN ×2 (10:20→21:27)
[2018-10-02] MEDS ORDERED: DEXAMETHASONE SOD PHOSPHATE 4 MG/1 ML VIAL IVPUSH ONE (10:24)
--- NOTE | 2018-10-02 11:03 | RAPID ---
Physical Examination Vital Signs: Vital Signs Temperature 97.6 F 10/02/18 06:27 Pulse Rate 89 10/02/18 06:27 Respiratory Rate 20 10/02/18 06:27 Blood Pressure 135/72 10/02/18 06:27 O2 Sat by Pulse Oximetry (%) 96 10/01/18 21:00 Labs: CBC, BMP 10/02/18 06:30 10/02/18 06:30 Rapid Response - Rapid Response Assessment: Rapid response called. Informed pt said she felt like she was having an asthma attack and then became unable to speak with audible stridor. Pt had similar symptoms a few days ago which were resolved with Decadron. Audible stridor noted Acute respiratory distress and anxiety Neck noted swollen Lungs clear in lower airway though upper airway stridor noted on auscultation as well Abdomen soft nontender Decadron 4 mg given with improvement of stridor Neb treatment as well with history Asthma/COPD Transfer to ICU for further airway monitoring new onset weakness in extremities, would consider Head and cervical spine imaging
[2018-10-02 11:10] LABS: ARTERIAL BLD GAS O2 SATURATION 89.3 % (90-98.9); ARTERIAL BLOOD GAS BASE EXCESS 3.5 meq/l (-2-2); ARTERIAL BLOOD GAS PCO2 45.9 mmHg (35-45); ARTERIAL BLOOD GAS PO2 61.1 mmHg (80-100); ARTERIAL BLOOD GAS pH 7.41 (7.35-7.45)
[2018-10-02 11:20] LABS: ALLENS TEST POSITIVE
--- NOTE | 2018-10-02 12:16 | PN ---
Progress Note (short form) - Note Progress Note: NEUROSURGERY POD #8 Event noted Care d/w floor and ICU team c/o dyspnea earlier Resting comfortably now PE: 97.5, VSS; O2 sat 99% Neck swelling reported No new hoarseness Moving extremities as previously per RN C spine x-rays- intact implants C3-4-5-6-7, lordosis maintained; prevertebral soft tissue swelling WBC 8.9 Recommend rehab- [facility] Encouraged ROM exercises even when in bed and for more activities OOB (pt is not motivated) Medical/pulmonary management Consider psych eval if no medical reason could be reasonably identified PT/OOB- rehab SCD's when in bed DVT prophylaxis Incentive spirometry
[2018-10-02] MEDS ORDERED: INSULIN (NOVOLOG) ASPART 100 UNITS/ML 10ML VIAL ONE (12:29)
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
--- NOTE | 2018-10-02 13:09 | PN ---
Teaching Attending Note Name of Resident: Mj Delaney ATTENDING PHYSICIAN STATEMENT I saw and evaluated the patient. I reviewed the resident's note and discussed the case with the resident. I agree with the resident's findings and plan as documented. SUBJECTIVE: Pt seen and examined in the ICU. Transferred down to the ICU for concern for stridor and airway compromise. States some shortness of breath with voice hoarseness and dysphagia but inconsistent symptoms and exam. OBJECTIVE: Vital Signs Period Temp Pulse Resp BP Sys/Wong Pulse Ox Last 24 Hr 97.4 F-98.5 F 89-98 14-20 96-135/69-72 96 Intake & Output 09/29/18 09/30/18 10/01/18 10/02/18 23:59 23:59 23:59 23:59 Intake Total 200 50 570 240 Output Total 600 200 900 250 Balance -400 -150 -330 -10 Gen: mildly tachypneic with speaking Neck: no stridor Heart: RRR Lung: decreased breath sounds at the bases Abd: soft, nontender Ext: no edema CBC, BMP 10/02/18 06:30 10/02/18 06:30 Active Medications Acetaminophen (Tylenol -) 650 mg PO Q6H PRN PRN Reason: pain Last Admin: 10/02/18 06:48 Dose: 650 mg Albuterol/Ipratropium (Duoneb -) 1 amp NEB Q6H PRN PRN Reason: SHORTNESS OF BREATH Last Admin: 10/02/18 10:20 Dose: 1 amp Amitriptyline HCl (Elavil -) 25 mg PO HS [facility] Last Admin: 10/01/18 22:45 Dose: 25 mg Atorvastatin Calcium (Lipitor -) 20 mg PO HS [facility] Last Admin: 10/01/18 22:45 Dose: 20 mg Bethanechol Chloride (Urecholine -) 10 mg PO TID [facility] Last Admin: 10/02/18 06:43 Dose: 10 mg Dexamethasone Sodium Phosphate (Decadron Injection -) 6 mg IVPUSH Q8H-IV [facility] Stop: 10/03/18 10:01 Diazepam (Valium -) 2 mg PO TID [facility] Last Admin: 10/02/18 06:42 Dose: 2 mg Diphenhydramine HCl (Benadryl Injection -) 25 mg IVPUSH Q8H [facility] Stop: 10/03/18 10:01 Docusate Sodium (Colace -) 100 mg PO TID [facility] Last Admin: 10/02/18 06:43 Dose: Not Given Insulin Aspart (Novolog Vial Sliding Scale -) 1 vial SQ [facility]; Protocol Last Admin: 10/02/18 11:00 Dose: Not Given Insulin Detemir (Levemir Vial) 10 units SQ DAILY@0700 [facility] Last Admin: 10/02/18 06:44 Dose: 10 units Metformin HCl (Glucophage -) 500 mg PO BID@0700,1630 [facility] Last Admin: 10/02/18 06:42 Dose: 500 mg Ondansetron HCl (Zofran Injection) 4 mg IVPUSH Q4H PRN PRN Reason: NAUSEA AND/OR VOMITING Pregabalin (Lyrica -) 75 mg PO TID [facility] Last Admin: 10/02/18 06:43 Dose: 75 mg Promethazine HCl (Phenergan Injection -) 12.5 mg IVPB Q6H PRN PRN Reason: NAUSEA AND/OR VOMITING Tamsulosin HCl (Flomax -) 0.4 mg PO DAILY@0830 [facility] Last Admin: 10/02/18 09:01 Dose: 0.4 mg Tizanidine HCl (Tizanidine Hcl) 2 mg PO Q8H PRN PRN Reason: MUSCLE SPASMS Last Admin: 09/29/18 21:06 Dose: 2 mg ASSESSMENT AND PLAN: Cervical Stenosis s/p C3-C7 Partial Corpectomies/Decompression/Fusion/Instrumentation/Interbody Implants UTI Urinary Retention DM Hyperlipidemia - empiric decadron, antihistamines x 24hrs - inhaled bronchodilators - O2 to keep SpO2 >90% - NPO except meds - glucose control while on systemic steroids - rehab/PT - DVT prophylaxis
[2018-10-02] MEDS: DEXAMETHASONE SOD PHOSPHATE 10 MG/1 ML VIAL IVPUSH SCH (17:57)
[2018-10-02] MEDS ORDERED: POLYETHYLENE GLYCOL 3350 119 GM BTL PO ONE (20:45)
[2018-10-02] MEDS ORDERED: PANTOPRAZOLE SODIUM 40 MG VIAL IVPUSH ONE (20:45)
[2018-10-02] MEDS ORDERED: MAG HYDROX/AL HYDROX/SIMETH 30 ML UNIT-DOSE CUP PO ONE (20:45)
[2018-10-02] MEDS: ATORVASTATIN CA 20 MG TABLET (FP) PO SCH (21:41)
[2018-10-02] MEDS: DOCUSATE NA 100 MG/10 ML UNIT-DOSE CUPS PO SCH (22:00)
[2018-10-02] MEDS ORDERED: diphenhydrAMINE HCL 25 MG CAPSULE (FP) PO ONE (22:01)
[2018-10-02] MEDS: AMITRIPTYLINE HCL 25 MG TABLET (FP) PO SCH (22:19)
--- NOTE | 2018-10-02 22:19 | PN ---
Progress Note, Physician History of Present Illness: Pt wearing C collar Events of today noted: Respiratory distress - Current Medication List Current Medications: Active Medications Acetaminophen (Tylenol -) 650 mg PO Q6H PRN PRN Reason: pain Last Admin: 10/02/18 13:55 Dose: 650 mg Albuterol/Ipratropium (Duoneb -) 1 amp NEB Q6H PRN PRN Reason: SHORTNESS OF BREATH Last Admin: 10/02/18 21:27 Dose: 1 amp Amitriptyline HCl (Elavil -) 25 mg PO [facility] Last Admin: 10/01/18 22:45 Dose: 25 mg Atorvastatin Calcium (Lipitor -) 20 mg PO [facility] Last Admin: 10/01/18 22:45 Dose: 20 mg Bethanechol Chloride (Urecholine -) 10 mg PO TID [facility] Last Admin: 10/02/18 17:57 Dose: Not Given Dexamethasone Sodium Phosphate (Decadron Injection -) 6 mg IVPUSH Q8H-IV [facility] Stop: 10/03/18 10:01 Last Admin: 10/02/18 17:57 Dose: 6 mg Diazepam (Valium -) 2 mg PO TID [facility] Last Admin: 10/02/18 13:55 Dose: 2 mg Docusate Sodium (Colace Liquid -) 100 mg PO TID [facility] Insulin Aspart (Novolog Vial Sliding Scale -) [address] [facility]; Protocol Last Admin: 10/02/18 17:56 Dose: 6 units Insulin Detemir (Levemir Vial) 10 units SQ DAILY@0700 [facility] Last Admin: 10/02/18 06:44 Dose: 10 units Metformin HCl (Glucophage -) 500 mg PO BID@0700,1630 [facility] Last Admin: 10/02/18 17:56 Dose: 500 mg Ondansetron HCl (Zofran Injection) 4 mg IVPUSH Q4H PRN PRN Reason: NAUSEA AND/OR VOMITING Pregabalin (Lyrica -) 75 mg PO TID [facility] Last Admin: 10/02/18 13:55 Dose: 75 mg Promethazine HCl (Phenergan Injection -) 12.5 mg IVPB Q6H PRN PRN Reason: NAUSEA AND/OR VOMITING Tamsulosin HCl (Flomax -) 0.4 mg PO DAILY@0830 [facility] Last Admin: 10/02/18 09:01 Dose: 0.4 mg Tizanidine HCl (Tizanidine Hcl) 2 mg PO Q8H PRN PRN Reason: MUSCLE SPASMS Last Admin: 09/29/18 21:06 Dose: 2 mg - Objective Vital Signs: Vital Signs Temperature 97.5 F L 10/02/18 10:00 Pulse Rate 98 H 10/02/18 16:00 Respiratory Rate 14 10/02/18 17:02 Blood Pressure 120/72 10/02/18 16:00 O2 Sat by Pulse Oximetry (%) 96 10/02/18 17:02 Neck: Yes: Other (C-collar) Cardiovascular: Yes: Tachycardia Respiratory: Yes: Diminished Gastrointestinal: Yes: WNL, Normal Bowel Sounds, Soft Labs: CBC, BMP 10/02/18 06:30 10/02/18 06:30 INR, PTT INR 0.99 (0.83-1.09) 09/23/18 10:10 Problem List - Problems (1) Respiratory distress Assessment/Plan: Pt being monitored in ICU for airway protection Cont decadron for another 24hrs/nebulizers Code(s): R06.03 - ACUTE RESPIRATORY DISTRESS (2) Urinary retention Assessment/Plan: Cont mayorga Copnt flomax Code(s): R33.9 - RETENTION OF URINE, UNSPECIFIED (3) Cord compression Assessment/Plan: S/P partial corpectomies [id number] w/ decompression fusion and microdissection Cont oxycodone DC planning to rehab Cont IV decadron As per NS Code(s): G95.20 - UNSPECIFIED CORD COMPRESSION (4) UTI (urinary tract infection) Assessment/Plan: Resolved Code(s): N39.0 - URINARY TRACT INFECTION, SITE NOT SPECIFIED (5) Diabetes Assessment/Plan: Cont sliding scale w/ coverage Cont metformin Steroids are causing increase in glucose Code(s): E11.9 - TYPE 2 DIABETES MELLITUS WITHOUT COMPLICATIONS (6) Cervical myelopathy Code(s): G95.9 - DISEASE OF SPINAL CORD, UNSPECIFIED
[2018-10-03] MEDS: DEXAMETHASONE SOD PHOSPHATE 10 MG/1 ML VIAL IVPUSH SCH ×2 (01:54→09:11)
[2018-10-03 06:27] LABS: BASO % 0.2 % (0-2.0); EOS % 0.1 % (0-4.5); HEMATOCRIT 35.6 % (32.4-45.2); HEMOGLOBIN 11.9 GM/dL (10.7-15.3); LYMPH % 5.9 % (8-40); MCH 29.4 pg (25.7-33.7); MCHC 33.5 g/dl (32.0-36.0); MEAN CELL VOLUME 87.7 fl (80-96); MEAN PLT VOLUME 8.3 fl (7.5-11.1); MONO % 1.7 % (3.8-10.2); NEUT % 92.1 % (42.8-82.8); PLATELET COUNT 391 K/MM3 (134-434); RBC 4.05 M/mm3 (3.60-5.2); RDW 13.1 % (11.6-15.6); WHITE BLOOD COUNT 14.9 K/mm3 (4.0-10.0)
[2018-10-03] MEDS ORDERED: PT OWN MED DRAWER 7, Y5N ONE ×2 (06:33→17:29)
[2018-10-03] MEDS: DOCUSATE NA 100 MG/10 ML UNIT-DOSE CUPS PO SCH ×3 (06:34→21:47)
[2018-10-03] MEDS: PREGABALIN 75 MG CAPSULE PO SCH ×3 (06:35→21:47)
[2018-10-03] MEDS: diazePAM 2 MG TABLET PO SCH ×3 (06:35→21:47)
[2018-10-03] MEDS: metFORMIN HCL 500 MG TABLET (FP) PO SCH ×2 (06:35→17:18)
[2018-10-03] MEDS: INSULIN SLIDING SCALE (NOVOLOG) 1 VIAL SQ SCH ×5 (06:36→21:46)
[2018-10-03] MEDS: INSULIN (LEVEMIR) 100 UNITS/ML UNITS SQ SCH (06:37)
[2018-10-03] MEDS: BETHANECHOL CHLORIDE 10 MG TABLET PO SCH ×3 (06:44→21:47)
[2018-10-03 06:53] LABS: ALBUMIN 3.5 g/dl (3.4-5.0); ALK PHOS 114 U/L (45-117); ANION GAP 8 MMOL/L (8-16); BILIRUBIN,TOTAL 0.2 mg/dL (0.2-1); BLOOD UREA NITROGEN 19 mg/dL (7-18); CALCIUM 9.6 mg/dL (8.5-10.1); CHLORIDE 100 mmol/L (98-107); CO2 29 mmol/L (21-32); CREATININE 0.7 mg/dL (0.55-1.3); GLUCOSE,RANDOM 191 mg/dL (74-106); MAGNESIUM 2.3 mg/dL (1.8-2.4); POTASSIUM 4.5 mmol/L (3.5-5.1); SGOT/AST 14 U/L (15-37); SGPT/ALT 24 U/L (13-61); SODIUM 137 mmol/L (136-145); TOT PROT 7.6 g/dl (6.4-8.2)
[2018-10-03] MEDS: ACETAMINOPHEN 325 MG TABLET (FP) PO PRN (09:09)
[2018-10-03] MEDS: TAMSULOSIN HCL 0.4 MG CAP PO SCH (09:09)
--- NOTE | 2018-10-03 12:02 | PN ---
Teaching Attending Note Name of Resident: Eli Seaman ATTENDING PHYSICIAN STATEMENT I saw and evaluated the patient. I reviewed the resident's note and discussed the case with the resident. I agree with the resident's findings and plan as documented. SUBJECTIVE: Pt seen and examined in the ICU. Breathing improving. Denies dysphagia. OBJECTIVE: Vital Signs Period Temp Pulse Resp BP Sys/Wong Pulse Ox Last 24 Hr 97.4 F-97.6 F 83-98 14-24 120-171/68-90 93-96 Intake & Output 09/30/18 10/01/18 10/02/18 10/03/18 23:59 23:59 23:59 23:59 Intake Total 50 570 440 Output Total 200 900 700 300 Balance -150 -330 -260 -300 Gen: NAD at rest Heart: RRR Lung: decreased breath sounds at the bases Abd: soft, nontender Ext: no edema CBC, BMP 10/03/18 05:30 10/03/18 05:30 Active Medications Acetaminophen (Tylenol -) 650 mg PO Q6H PRN PRN Reason: pain Last Admin: 10/03/18 09:09 Dose: 650 mg Albuterol/Ipratropium (Duoneb -) 1 amp NEB Q6H PRN PRN Reason: SHORTNESS OF BREATH Last Admin: 10/02/18 21:27 Dose: 1 amp Amitriptyline HCl (Elavil -) 25 mg PO [facility] Last Admin: 10/02/18 22:19 Dose: 25 mg Atorvastatin Calcium (Lipitor -) 20 mg PO [facility] Last Admin: 10/02/18 21:41 Dose: 20 mg Bethanechol Chloride (Urecholine -) 10 mg PO TID [facility] Last Admin: 10/03/18 06:44 Dose: 10 mg Diazepam (Valium -) 2 mg PO TID [facility] Last Admin: 10/03/18 06:35 Dose: 2 mg Docusate Sodium (Colace Liquid -) 100 mg PO TID [facility] Last Admin: 10/03/18 06:34 Dose: 100 mg Insulin Aspart (Novolog Vial Sliding Scale -) 1 vial SQ [facility] COUNT INCLUDES [facility]; Protocol Last Admin: 10/03/18 06:36 Dose: Not Given Insulin Detemir (Levemir Vial) 10 units SQ DAILY@0700 [facility] Last Admin: 10/03/18 06:37 Dose: 10 units Metformin HCl (Glucophage -) 500 mg PO BID@0700,1630 [facility] Last Admin: 10/03/18 06:35 Dose: 500 mg Ondansetron HCl (Zofran Injection) 4 mg IVPUSH Q4H PRN PRN Reason: NAUSEA AND/OR VOMITING Pregabalin (Lyrica -) 75 mg PO TID [facility] Last Admin: 10/03/18 06:35 Dose: 75 mg Promethazine HCl (Phenergan Injection -) 12.5 mg IVPB Q6H PRN PRN Reason: NAUSEA AND/OR VOMITING Tamsulosin HCl (Flomax -) 0.4 mg PO DAILY@0830 [facility] Last Admin: 10/03/18 09:09 Dose: 0.4 mg Tizanidine HCl (Tizanidine Hcl) 2 mg PO Q8H PRN PRN Reason: MUSCLE SPASMS Last Admin: 09/29/18 21:06 Dose: 2 mg ASSESSMENT AND PLAN: Cervical Stenosis s/p C3-C7 Partial Corpectomies/Decompression/Fusion/Instrumentation/Interbody Implants r/o Stridor UTI Urinary Retention DM Hyperlipidemia - can stop decadron, antihistamines - inhaled bronchodilators - O2 to keep SpO2 >90% - PO as tolerated - rehab/PT - DVT prophylaxis - monitor on floor
[2018-10-03] MEDS ORDERED: LORazepam 2 MG/ML SDV VIAL ONE (12:06)
[2018-10-03] MEDS ORDERED: LORazepam 2 MG/ML SDV VIAL IVPUSH ONE (12:07)
--- NOTE | 2018-10-03 12:44 | PN ---
Progress Note (short form) - Note Progress Note: SUBJECTIVE Patient seen and examined at the bedside. No acute events overnight. OBJECTIVE Vital Signs Temperature 97.4 F L 10/03/18 10:00 Pulse Rate 94 H 10/03/18 10:00 Respiratory Rate 16 10/03/18 10:00 Blood Pressure 147/81 10/03/18 10:00 O2 Sat by Pulse Oximetry (%) 93 L 10/03/18 09:00 General: Awake, alert, oriented Head: No signs of trauma Eyes: EOMI, sclera anicteric ENT: Moist mucus membranes Neck: Supple Lungs: Lungs clear Cardio: S1 and S2 present Abdomen: Soft, nontneder Extremities: Distal pulses present SKIN: Warm, Dry, normal turgor Neurologic: CN II through XII grossly intact ASSESSMENT 63F with history of HLD, DM2, asthma, and cervical stenosis s/p Ravinder vasquez; Partial corpectomies C3,4,5,6,7; ant cervical decompression, fusion, and instrumentation C3-4-5-6-7; interbody implants C3-4, C4-5, C5-6, C6-7; microdissection, presents to the ICU with concern for airway compromise but physical exam findings and history of current presenting illness are inconsistent. Patient witnessed by nurse to have lateral gaze and shaking motion for about three minutes at 12:10pm on 10/03/18. Upon examination by Dr. Carter , she was resisting exam which is inconsistent with genuine seizure. PLAN Safe for transfer to floor NEURO Neurosurgery POD #9 Decadron 6mg q8h x24 hours, discontinued Benadryl q8h x24 hours, discontinued Continue lyrica Continue Tizanidine Neuro to assess for pseudoseizure -given ativan PULM Bronchodilators CV Chronic HLD -continue lipitor RENAL UTI, resolved Post-op urinary retention -flomax and urecholine -urology following ENDO Chronic Diabetes -BGM, NISS Continue metformin Levemir 10 units daily FEN On diabetic diet PPX DVT: SCD's Incentive spirometer GI: colace Pain: tylenol 650mg PO q6h PRN PT/OT
[2018-10-03] MEDS ORDERED: HEMOQUE TEST 1 EACH EACH ONE (13:12)
[2018-10-03] MEDS ORDERED: clonazePAM 0.5 MG TABLET PO PRN (14:00)
--- NOTE | 2018-10-03 17:53 | PN ---
Progress Note, Physician History of Present Illness: DOING WELL NECK COLLAR IN PLACE - Current Medication List Current Medications: Active Medications Acetaminophen (Tylenol -) 650 mg PO Q6H PRN PRN Reason: pain Last Admin: 10/03/18 09:09 Dose: 650 mg Albuterol/Ipratropium (Duoneb -) 1 amp NEB Q6H PRN PRN Reason: SHORTNESS OF BREATH Last Admin: 10/02/18 21:27 Dose: 1 amp Amitriptyline HCl (Elavil -) 25 mg PO [facility] Last Admin: 10/02/18 22:19 Dose: 25 mg Atorvastatin Calcium (Lipitor -) 20 mg PO [facility] Last Admin: 10/02/18 21:41 Dose: 20 mg Bethanechol Chloride (Urecholine -) 10 mg PO TID [facility] Last Admin: 10/03/18 13:56 Dose: Not Given Diazepam (Valium -) 2 mg PO TID [facility] Last Admin: 10/03/18 13:56 Dose: Not Given Docusate Sodium (Colace Liquid -) 100 mg PO TID [facility] Last Admin: 10/03/18 13:56 Dose: Not Given Insulin Aspart (Novolog Vial Sliding Scale -) 1 vial SQ [facility]; Protocol Last Admin: 10/03/18 17:17 Dose: 4 units Insulin Detemir (Levemir Vial) 10 units SQ DAILY@0700 [facility] Last Admin: 10/03/18 06:37 Dose: 10 units Metformin HCl (Glucophage -) 500 mg PO BID@0700,1630 [facility] Last Admin: 10/03/18 17:18 Dose: Not Given Ondansetron HCl (Zofran Injection) 4 mg IVPUSH Q4H PRN PRN Reason: NAUSEA AND/OR VOMITING Pregabalin (Lyrica -) 75 mg PO TID [facility] Last Admin: 10/03/18 13:56 Dose: Not Given Promethazine HCl (Phenergan Injection -) 12.5 mg IVPB Q6H PRN PRN Reason: NAUSEA AND/OR VOMITING Tamsulosin HCl (Flomax -) 0.4 mg PO DAILY@0830 [facility] Last Admin: 10/03/18 09:09 Dose: 0.4 mg Tizanidine HCl (Tizanidine Hcl) 2 mg PO Q8H PRN PRN Reason: MUSCLE SPASMS Last Admin: 09/29/18 21:06 Dose: 2 mg - Objective Vital Signs: Vital Signs Temperature 98.2 F 10/03/18 14:00 Pulse Rate 93 H 10/03/18 16:00 Respiratory Rate 18 10/03/18 16:00 Blood Pressure 140/76 10/03/18 16:00 O2 Sat by Pulse Oximetry (%) 93 L 10/03/18 09:00 Constitutional: Yes: No Distress HENT: Yes: Atraumatic Neck: Yes: Supple Cardiovascular: Yes: Regular Rate and Rhythm Respiratory: Yes: CTA Bilaterally Gastrointestinal: Yes: Normal Bowel Sounds Extremities: Yes: WNL Edema: No Peripheral Pulses WNL: Yes Neurological: Yes: Alert, Oriented Labs: CBC, BMP 10/03/18 05:30 10/03/18 05:30 INR, PTT INR 0.99 (0.83-1.09) 09/23/18 10:10 Problem List - Problems (1) Weakness Assessment/Plan: need rehab Code(s): R53.1 - WEAKNESS (2) Hip pain, bilateral Code(s): M25.551 - PAIN IN RIGHT HIP; M25.552 - PAIN IN LEFT HIP (3) UTI (urinary tract infection) Code(s): N39.0 - URINARY TRACT INFECTION, SITE NOT SPECIFIED (4) Cervical myelopathy Code(s): G95.9 - DISEASE OF SPINAL CORD, UNSPECIFIED (5) Cord compression Assessment/Plan: s/p cervical laminectomy prn pain meds neuro surgery on board PT eval transfer to floor Code(s): G95.20 - UNSPECIFIED CORD COMPRESSION (6) Diabetes Assessment/Plan: insulin bgms Code(s): E11.9 - TYPE 2 DIABETES MELLITUS WITHOUT COMPLICATIONS Assessment/Plan covering for DR LAGOS TODAY
[2018-10-03] MEDS: TIZANIDINE HCL 2 MG TABLET PO PRN (21:47)
[2018-10-03] MEDS: ATORVASTATIN CA 20 MG TABLET (FP) PO SCH (21:47)
[2018-10-03] MEDS: AMITRIPTYLINE HCL 25 MG TABLET (FP) PO SCH (21:47)
[2018-10-04] MEDS: DOCUSATE NA 100 MG/10 ML UNIT-DOSE CUPS PO SCH (06:27)
[2018-10-04] MEDS: metFORMIN HCL 500 MG TABLET (FP) PO SCH (06:27)
[2018-10-04] MEDS: BETHANECHOL CHLORIDE 10 MG TABLET PO SCH (06:27)
[2018-10-04] MEDS: PREGABALIN 75 MG CAPSULE PO SCH (06:27)
[2018-10-04] MEDS: diazePAM 2 MG TABLET PO SCH (06:27)
[2018-10-04] MEDS: INSULIN (LEVEMIR) 100 UNITS/ML UNITS SQ SCH (06:28)
[2018-10-04] MEDS: INSULIN SLIDING SCALE (NOVOLOG) 1 VIAL SQ SCH ×3 (06:28→17:11)
[2018-10-04] MEDS ORDERED: PT OWN MED DRAWER 7, Y5N ONE (06:37)
[2018-10-04] MEDS ORDERED: INSULIN (LEVEMIR) 100 UNITS/ML UNITS SQ ONE (06:39)
[2018-10-04] MEDS ORDERED: ALBUTEROL SO4 2.5/IPRATROPIUM 0.5 INH SOL 3 ML VIAL.NEB. NEB PRN (07:22)
[2018-10-04] MEDS ORDERED: TIZANIDINE HCL 2 MG TABLET PO PRN (07:22)
[2018-10-04] MEDS ORDERED: ONDANSETRON 4 MG/2 ML VIAL IVPUSH PRN (07:22)
[2018-10-04] MEDS ORDERED: PROMETHAZINE HCL 25 MG/1 ML VIAL IVPB PRN (07:22)
[2018-10-04] MEDS ORDERED: ACETAMINOPHEN 325 MG TABLET (FP) PO PRN (07:22)
--- NOTE | 2018-10-04 07:48 | PN ---
Progress Note (short form) - Note Progress Note: NEUROSURGERY POD #10 No new complaint Back on 8 W Having a BM PE: 97.6, VSS PE: General- CV- RR; Lungs- decreased BS at bases; Abd- benign; mild hoarseness CN- intact; Motor- B Deltoid 4+, B hands 4-, B B/BR/T 3/5 L sided slightly stronger; R LE 2-3, L LE 4+; Sensation- decreased LT/PP R arm down to leg but better; DTR- 2+ except decreased R ankle reflex Dressing C/D/I Collar in place Medical/pulmonary management Consider psych eval if no medical reason could be reasonably identified PT/OOB- rehab SCD's when in bed DVT prophylaxis Bowel regimen Benadryl liquid Incentive spirometry
[2018-10-04] MEDS ORDERED: diphenhydrAMINE HCL 12.5 MG/5 ML UNIT-DOSE CUPS PO PRN (07:52)
[2018-10-04] MEDS ORDERED: MAGNESIUM CITRATE 300 ML BOTTLE PO PRN (07:53)
[2018-10-04 08:09] LABS: BASO % 0.2 % (0-2.0); EOS % 0.5 % (0-4.5); HEMATOCRIT 34.6 % (32.4-45.2); LYMPH % 18.2 % (8-40); MCH 30.4 pg (25.7-33.7); MCHC 34.5 g/dl (32.0-36.0); MEAN CELL VOLUME 88.1 fl (80-96); MEAN PLT VOLUME 8.5 fl (7.5-11.1); MONO % 6.9 % (3.8-10.2); NEUT % 74.2 % (42.8-82.8); PLATELET COUNT 396 K/MM3 (134-434); RBC 3.93 M/mm3 (3.60-5.2); WHITE BLOOD COUNT 17.4 K/mm3 (4.0-10.0)
[2018-10-04] MEDS ORDERED: TAMSULOSIN HCL 0.4 MG CAP PO SCH (08:30)
[2018-10-04 08:47] LABS: ALBUMIN 3.4 g/dl (3.4-5.0); ALK PHOS 105 U/L (45-117); ANION GAP 9 MMOL/L (8-16); BILIRUBIN,TOTAL 0.4 mg/dL (0.2-1); BLOOD UREA NITROGEN 21 mg/dL (7-18); CHLORIDE 106 mmol/L (98-107); CO2 26 mmol/L (21-32); CREATININE 0.7 mg/dL (0.55-1.3); GLUCOSE,RANDOM 139 mg/dL (74-106); MAGNESIUM 1.9 mg/dL (1.8-2.4); PHOSPHOROUS 3.6 mg/dL (2.5-4.9); SGOT/AST 24 U/L (15-37); SGPT/ALT 35 U/L (13-61); SODIUM 141 mmol/L (136-145); TOT PROT 7.2 g/dl (6.4-8.2)
--- NOTE | 2018-10-04 10:49 | CONSULT ---
Admitting History and Physical - Primary Care Physician PCP: Eli Campuzano - Admission History of Present Illness: 73F with PMH of DM2, HLD, asthma, cervical stenosis presents to the ER with a 3- 4 month history of progressively worsening lower extremity weakness and numbness. She was evaluated by neurosurgery for findings of marked stenosis C3-4 , C5-6 and C6-7; moderate stenosis C5-6; R C5-6 acute/subacute HNP; progressive myelopathyand she is post-op day #8 s/p Castellon Jovan vasquez; Partial corpectomies C3,4,5,6,7; ant cervical decompression, fusion, and instrumentation C3-4-5-6-7; interbody implants C3-4, C4-5, C5-6, C6-7; microdissection. Operative Date: 09/24/18 Pre-Operative Diagnosis: Marked stenosis C3-4, C5-6 and C6-7; moderate stenosis C5-6; R C5-6 acute/subacute HNP; progressive myelopathy Operation: Ravinder vasquez; Partial corpectomies C3,4,5,6,7; ant cervical decompression, fusion, and instrumentation C3-4-5-6-7; interbody implants C3-4, C4-5, C5-6, C6-7; microdissection Findings: enlarged thyroid; bridging osteophytes C5-6 and C6-7; degenerative disc space narrowing multiple levels; cord impingement multiple levels, attenuated baseline MEP signals Implants: interbody [place] implants 6 mm C3-4, C4-5, C6-7; 7 mm implants C5-6 Pt reported to be tolerating diets. 09/28- full fluid 10/01 regular 10/03 npo 10/04 full fluid/finger foods if requested 10/02-Rapid response was called for respiratory distress, having stridor and shortness of breath and was placed on 100% non rebreather bronchodilators and decadron with improvement, and ICU was requested for airway watch. Patient was hemodynamically stable. Transferred down to the ICU for concern for stridor and airway compromise. Stated some shortness of breath with voice hoarseness and dysphagia but inconsistent symptoms and exam. 10/03 Pseudoseizure Upon h/o review with Ms. Rice, she had some difficulty swallowing after the surgery because it was painful, but tolerated small sips of thin liquid though a straw, and pudding that she washed down with sips of liquid. She coughed occasionally but was tolerating it. Cervical collar was on for meals. Reg diet was difficult, sticking in her throat, so she ordered very soft foods, cut it up into small pieces, and was doing ok. She said the RR response occured not while eating but while speaking documented at 10:55 am. Per nursing note-PT AWAKE, ALERT, C/O DIFFICULTY SWALLOWING, REPORTS SHE FEELS SHE IS HAVING AN ASTHMA ATTACK, O2 NASAL CANNULA PLACED 3L SATING 100%, HOWEVER PT CONTINUES TO HAVE SOB. PT BECAME NON-VERBAL, UNRESPONSIVE. 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: Yes: Other (cervical stenosis) Cardiovascular: Yes: Hyperlipdemia Pulmonary: Yes: Asthma Renal/: Yes: Neurogenic Bladder Endocrine: Yes: Diabetes Mellitus (type 2) - Smoking History Smoking history: Current every day smoker Have you smoked in the past 12 months: Yes Aproximately how many cigarettes per day: 10 - Alcohol/Substance Use Hx Alcohol Use: No History - Admission Reason For Visit: WEAKNESS - General Mental Status: Alert and Oriented, Awake and Alert, Able to Follow Commands Attention: Intact Ability to Follow Directions: Excellent Head/Neck Control: Fair (head extended, with collar) - Hearing Hearing: Normal Hearing Aide: No With Patient: No Speech Evaluation - Communication Primary Language: FIJIAN Communication: Yes: Within Normal Limits Oral Expression Ability: Yes: No Impairment - Speech Production Able to Make Needs Known: Yes: WNL Intelligibility: Yes: WNL - Speech Characteristics Voice Loudness: Normal Voice Pitch: Yes: Normal Voice Phonatory-based Quality: Yes: Normal (euphonic) Speech Pattern: Normal Speech Clarity: < 100% Nasal Resonance: Normal Articulation: Yes: Precise Rate of Speech: Intact - Language/Auditory Comprehension Follows: Yes: 2 Stage Simple Commands - Language/Verbal Expression Able to Respond to Simple Queries: Yes: WNL Able to Communicate Wants and Needs: Yes: WNL Functional Communication Status: Yes: WNL - Memory/Perception nursing home Memory: Yes: WNL Short Term Memory: Yes: WNL - Swallow Evaluation/Bedside Assessment Current Nutritional Intake: Full Liquids, Thin Liquids, Other (finger foods if requested) Dentition: Yes: Adequate Facial Symmetry on Retraction: Symmetrical Sensation: Normal Against Resistance Opening: Normal Against Resistance Closing: Normal Pucker Lips: Normal Smile: Normal Lingual Movement: Normal, Symmetric Lingual Speed of Movement: Normal Lingual Movement Strgth Against Opposition: Normal Lingual Movement Characteristics: Normal Velopharyngeal Movement: Normal Laryngeal Elevation: WFL Laryngeal Movement: Able to Palpate Rate of Intake: WFL Bolus Size: WFL Labial Seal: WFL Chewing: WFL Oral Prep Time: WFL A-P Transit: WFL Pocketing: None Timing of Swallow: WFL Coughing/Throat Clear: No Change in Voice: No Recommendations - Speech Evaluation, Impression/Plan Impression: Swallow overtly functional for thin liquids and puree. Stasis of solids can not be r/o at bedside.This could build up in pharynx and compromise the airway. Additionally, head extension, mechanically caused by hard cervical collar, may be cause of or exacerbate risk. Voice is euphonic. I suspect swallowing has improved significantly since sx and may be functional for solids. However, bedside evaluation is especially unreliable in this situation. - Disposition Discharge to: Rehabilitation Center - Dysphagia Impressions/Plan Swallowing Skills: Impaired (Suspected to be improving) Dysphagia Impressions: Ongoing Evaluation *Silent aspiration: cannot be R/O at bedside Dysphagia Treatment Plan: Small Bites, Chin Tuck/Down (request permission from surgeon, as tolerated, with collar open for PO intake), Facilitative Feeding, 1/ 2 tsp. at a time Recommendations: Modified Barium Swallow - Recommendations Diet Consistency: Other (full fluids, no finger foods until mbs done) Liquids: Thin Liquids Supplement: Glucerna (Chocolate)
[2018-10-04] MEDS ORDERED: DOCUSATE NA 100 MG/10 ML UNIT-DOSE CUPS PO SCH (14:00)
[2018-10-04] MEDS ORDERED: PREGABALIN 75 MG CAPSULE PO SCH (14:00)
[2018-10-04] MEDS ORDERED: BETHANECHOL CHLORIDE 10 MG TABLET PO SCH (14:00)
[2018-10-04] MEDS ORDERED: diazePAM 2 MG TABLET PO SCH (14:00)
--- NOTE | 2018-10-04 14:07 | CONSULT ---
Consult - text type - Consultation Consultation Note: NEUROLOGY PROGRESS: Events reviewed and discussed with staff. Notes reviewed from rapid response and Dr. Rowe. Pt returned from ICU monitoring after rapid response due to concern of airway compromise. Pt recalls prior to the events "not feeling herself" and "rocking back and forth " in bed. She then reports she felt "stuck leaning to the left." She recalls her family at bedside telling her to "calm down" but reports she was unable to respond to them. She reports "never feeling anything like this before." She is now on diazepam 2 mg tid without further events noted. The patient reports the staff attempted to remove her mayorga, but she was unable to void and it was replaced. 17.3K WBC with 75% shift, Last UA 09/18 (+) nitrates, LE In firm cervical collar, sitting upright in chair. Oriented x 3 Grasps 4-/5 R, 5/5 L, Right triceps, finger extensors 2/5. Unable to elevate R leg against gravity. Ankle DF 4-/5 R, 5/5 on L Feels vibration both feet (L>R). IMP: Myelopathy s/p cervical decompression. ? period of transient loss of awareness d/t hyperventilatory state vs. seizure R/O Toxic-Metabolic Encephalopathy. Plan: Hold discharge planning until urosepsis ruled out Advise UA/C/S stat Maintain on Valium 2 mg tid or clonazepam 0.5 mg q12H standing at this time Caution with use of anti-emetics as can lower seizure threshold ( ondansetron, promethazine) Caution with use of anti-cholinergics (diphenhydramine) as can worsen confusion Thank you very much, Shadi Colón MD
--- NOTE | 2018-10-04 15:19 | DS ---
Physical Examination Vital Signs: Vital Signs Temperature 98.4 F 10/04/18 14:26 Pulse Rate 102 H 10/04/18 14:26 Respiratory Rate 18 10/04/18 14:26 Blood Pressure 122/70 10/04/18 14:26 O2 Sat by Pulse Oximetry (%) 95 10/04/18 09:00 HENT: Yes: Other ((+) cervical collar) Cardiovascular: Yes: WNL, Regular Rate and Rhythm Respiratory: Yes: WNL, Regular, CTA Bilaterally Gastrointestinal: Yes: WNL, Normal Bowel Sounds, Soft Labs: CBC, BMP 10/04/18 06:00 10/04/18 06:00 Discharge Summary Reason For Visit: WEAKNESS Current Active Problems Cervical myelopathy (Acute) Cord compression (Acute) Diabetes (Acute) Neurogenic bladder (Acute) Respiratory distress (Acute) UTI (urinary tract infection) (Acute) Urinary retention (Acute) Weakness (Acute) Other Procedures: S/P partial corpectomies [id number] w/ decompression fusion and microdissection. Hospital Course: 63 year old woman with a history of asthma, [id number] diabetes, HLD and RSD diagnosed > 10 years ago with upper and lower progressive extremity weakness who presents with worsening ability to ambulate over 1month. Per the patient has been stumbling with gait worsening over the past 4 months and he "got sick of seeing her like that." Pt had MRI of c-spine wc showed cervical stenosis and cord compression at C5-C6 and C6-C7 and was seen by neuro and NSG. Pt subsequently underwent S/P partial corpectomies [id number] w/ decompression fusion and microdissection. Pt was also treated w/ IV ceftriaxone for UTI and subsequently developed urianry retention and was seen by urology. Pt also has a h/o neurogenic bladder. Pt is being sent w/ a mayorga cath and should undergo voiding trials when more ambulatory to remove mayorga cath. Condition: Good - Instructions Diet, Activity, Other Instructions: Post-op Instructions Diet: 2200 calorie diabetic diet Activity:May shower but keep incision line dry. Change dressing afterwards Restrictions: Light activity; Do not lift anything over 10lbs. Additional Instructions: Keep incision line clean and dry. Change dressing daily. Report any chills, fever (100 or greater), any wound drainage, or any neurological changes to Dr. Rowe. Do not drive for two weeks. Initial postop appt: Call Dr Rowe's office to be seen in about 1 week or after rehab, whichever is sooner Referrals: Kan Medina MD [Primary Care Provider] - Disposition: [facility] - Home Medications Comprehensive Discharge Medication List: Ambulatory Orders Metformin HCl [Glucophage] 500 mg PO BID #0 tablet 11/16/11 Simvastatin 40 mg PO DAILY 09/18/18 Pregabalin [Lyrica -] 150 mg PO BID 09/20/18 Acetaminophen [Tylenol .Regular Strength -] 650 mg PO Q6H PRN tablet 10/04/18 Albuterol 2.5/Ipratropium 0.5 [Duoneb -] 1 amp NEB Q6H PRN amp 10/04/18 Amitriptyline HCl [Elavil -] 25 mg PO HS tablet 10/04/18 Bethanechol Chloride [Bethanechol Chloride -] 10 mg PO TID tablet 10/04/18 Docusate Sodium [Colace -] 100 mg PO TID capsule 10/04/18 Insulin (Levemir) [Levemir Vial] 10 units SQ DAILY@0700 units 10/04/18 Insulin Sliding Scale [Novolog Vial Sliding Scale -] 1 vial SQ ACHS units 10/04 Pregabalin [Lyrica -] 75 mg PO TID capsule MDD 150mg 10/04/18 Tamsulosin HCl [Flomax -] 0.4 mg PO DAILY@0830 cap.er.24h 10/04/18 Tizanidine HCl 2 mg PO Q8H PRN tablet 10/04/18 clonazePAM [Klonopin -] 0.5 mg PO Q12H PRN #60 tablet MDD 1mg 10/04/18 metFORMIN HCL [Glucophage -] 500 mg PO BID@0700,1630 tablet 10/04/18
[2018-10-04] MEDS ORDERED: metFORMIN HCL 500 MG TABLET (FP) PO SCH (16:30)
[2018-10-04 18:14] VITALS: BP 112/73; PULSE 99; TEMP 98
[2018-10-04] MEDS ORDERED: ATORVASTATIN CA 20 MG TABLET (FP) PO SCH (22:00)
[2018-10-04] MEDS ORDERED: AMITRIPTYLINE HCL 25 MG TABLET (FP) PO SCH (22:00)
[2018-10-05] MEDS ORDERED: INSULIN (LEVEMIR) 100 UNITS/ML UNITS SQ SCH (07:00)
== END 2018-10-04 20:27 | DRG 321 ==
LOC: JER 11:41 → JERBED 09-19 02:55 → J8W 09-19 08:56 → JICU 10-02 10:43 → J8W 10-03 20:54
PROVIDERS: ADMIT Internal Medicine; ATTEND Internal Medicine
PROC: 0RT30ZZ Resection of Cervical Vertebral Disc, Open Approach (ICD-10-PCS; 2018-09-24)
PROC: 4A11X4G Monitoring of Peripheral Nervous Electrical Activity, Intraoperative, External Approach (ICD-10-PCS; 2018-09-24)
PROC: 0RG20A0 Fusion of 2 or more Cervical Vertebral Joints with Interbody Fusion Device, Anterior Approach, Anterior Column, Open Approach (ICD-10-PCS; principal; 2018-09-24 13:15)
DX: M50.01 Cervical disc disorder with myelopathy, high cervical region (principal); M48.02 Spinal stenosis, cervical region; M25.551 Pain in right hip; M47.12 Other spondylosis with myelopathy, cervical region; N39.0 Urinary tract infection, site not specified; M85.88 Other specified disorders of bone density and structure, other site; B96.20 Unspecified Escherichia coli [E. coli] as the cause of diseases classified elsewhere; G95.89 Other specified diseases of spinal cord; N31.8 Other neuromuscular dysfunction of bladder; G95.20 Unspecified cord compression; M50.123 Cervical disc disorder at C6-C7 level with radiculopathy; E11.40 Type 2 diabetes mellitus with diabetic neuropathy, unspecified; G95.9 Disease of spinal cord, unspecified; F17.210 Nicotine dependence, cigarettes, uncomplicated; R53.1 Weakness; R06.1 Stridor; E78.5 Hyperlipidemia, unspecified; J45.909 Unspecified asthma, uncomplicated; R33.8 Other retention of urine; R56.9 Unspecified convulsions; G93.41 Metabolic encephalopathy; R26.9 Unspecified abnormalities of gait and mobility; R27.0 Ataxia, unspecified
CPT/HCPCS: 36415; 36600; 70450-TC; 71045-TC-FY; 72050-TC-FY; 72156-TC; 80053; 81003; 81015; 82550; 82607; 82803; 82962; 83036; 83605; 83735; 84100; 84443; 84484; 85025; 85610; 85651; 86038; 86140; 86593; 86790; 86850; 86900; 86901; 87086; 87186; 88304-TC; 93005; 93010; 94640; 94760; 95860-TC; 97116-GP; 97163-GP; 99285-25; J1100; J3480; J7030

== ENCOUNTER 2021-01-29 08:32 | Emergency (ER) | payer OTHER ==
[2021-01-29 08:39] VITALS: BMI 27.6
[2021-01-29] MEDS ORDERED: diphenhydrAMINE HCL 25 MG CAPSULE (FP) PO ONE ×4 (08:59→10:36)
[2021-01-29] MEDS ORDERED: DEXAMETHASONE 4 MG TABLET (FP) PO ONE (09:01)
[2021-01-29] MEDS ORDERED: DEXAMETHASONE 4 MG TABLET (FP) ONE (09:10)
[2021-01-29 10:13] VITALS: TEMP 98
[2021-01-29 12:27] VITALS: BP 138/80; PULSE 74
== END 2021-01-29 12:25 | disposition home or self-care (01) ==
LOC: JER 08:32
DX: T78.40XA Allergy, unspecified, initial encounter (principal); R22.0 Localized swelling, mass and lump, head
CPT/HCPCS: 99284-25

== ENCOUNTER 2021-08-03 21:05 | Emergency (ER) | payer OTHER ==
[2021-08-03 21:10] VITALS: TEMP 97; BMI 25.7
[2021-08-03] MEDS ORDERED: DIPHTH,PERTUSS(ACELL),TET 0.5 ML DISP.SYRIN IM ONE ×2 (21:29→21:35)
[2021-08-03 22:41] VITALS: BP 142/72; PULSE 82
== END 2021-08-03 22:41 | disposition home or self-care (01) ==
LOC: JER 21:05
PROC: 0HQGXZZ Repair Left Hand Skin, External Approach (ICD-10-PCS; principal; 2021-08-03)
PROC: 3E0234Z Introduction of Serum, Toxoid and Vaccine into Muscle, Percutaneous Approach (ICD-10-PCS; 2021-08-03)
DX: S61.412A Laceration without foreign body of left hand, initial encounter (principal); W06.XXXA Fall from bed, initial encounter
CPT/HCPCS: 12001-25; 73130-TC-LT-FY; 90471; 90715; 99284-25

== ENCOUNTER 2022-12-11 14:22 | Inpatient (IN) | payer OTHER ==
[2022-12-11 15:13] VITALS: BMI 26.6
[2022-12-11 16:36] LABS: BASO % 0.2 % (0-2.0); EOS % 0.9 % (0-4.5); HEMATOCRIT 35.7 % (32.4-45.2); HEMOGLOBIN 11.9 GM/dL (10.7-15.3); MCH 29.4 pg (25.7-33.7); MCHC 33.2 g/dl (32.0-36.0); MEAN CELL VOLUME 88.6 fl (80-96); MEAN PLT VOLUME 8.9 fl (7.5-11.1); MONO % 7.8 % (3.8-10.2); NEUT % 71.1 % (42.8-82.8); PLATELET COUNT 181 10^3/uL (134-434); RBC 4.03 M/mm3 (3.60-5.2); RDW 14.9 % (11.6-15.6); WHITE BLOOD COUNT 6.7 K/mm3 (4.0-10.0)
[2022-12-11 16:43] LABS: INR 1.04 (0.83-1.09); PROTHROMBIN TIME (PATIENT) 12.1 SEC (9.7-13.0)
[2022-12-11 16:46] LABS: ACTIVATED PTT 30.7 SECONDS (25.2-36.5)
[2022-12-11 18:00] LABS: CHLORIDE 109 mmol/L (98-107); SODIUM 142 mmol/L (136-145)
[2022-12-11 18:02] LABS: ANION GAP 8 MMOL/L (8-16); BLOOD UREA NITROGEN 31.9 mg/dL (7-18); CALCIUM 9.3 mg/dL (8.5-10.1); CO2 26 mmol/L (21-32); GLUCOSE,RANDOM 92 mg/dL (74-106)
[2022-12-11 18:03] LABS: ALBUMIN 3.7 g/dl (3.4-5.0); LIPASE 94 U/L (73-393)
[2022-12-11 18:05] LABS: CREATININE 1.7 mg/dL (0.55-1.3); SGOT/AST 18 U/L (15-37); SGPT/ALT 30 U/L (13-61)
[2022-12-11 18:07] LABS: BILIRUBIN,TOTAL 0.3 mg/dL (0.2-1); TOT PROT 7.4 g/dl (6.4-8.2)
[2022-12-11 18:08] LABS: ALK PHOS 67 U/L (45-117)
[2022-12-11] MEDS ORDERED: SODIUM CHLORIDE 0.9% 1000 ML INFUS.BAG IV ONE (18:10)
[2022-12-11 21:21] LABS: EPI CELLS >36 /uL (0-25.1); HYALINE CASTS 1 /uL (0-3.1); PH,URINE 5.5 (5.0-8.0); URINE APPEARANCE CLEAR; URINE BACTERIA 1561 /uL (0-1359); URINE BILIRUBIN NEGATIVE (NEGATIVE); URINE COLOR YELLOW; URINE GLUCOSE (UA) NEGATIVE (NEGATIVE); URINE KETONE NEGATIVE (NEGATIVE); URINE LEUK ESTERASE 2+ (NEGATIVE); URINE NITRITE NEGATIVE (NEGATIVE); URINE PROTEIN TRACE (NEGATIVE); URINE RBC 24 /uL (0-23.9); URINE UROBILINOGEN 0.2 mg/dL (0.2-1.0); URINE WBC 139 /uL (0-25.8)
[2022-12-11 21:56] LABS: COCAINE, UR NEGATIVE (NEGATIVE); METHADONE, UR NEGATIVE (NEGATIVE); OPIATES, URI NEGATIVE (NEGATIVE); PHENCYCLIDINE,URINE NEGATIVE (NEGATIVE); URINE AMPHETAMINES NEGATIVE (NEGATIVE); URINE BARBITURATES NEGATIVE (NEGATIVE); URINE BENZODIAZEPINES NEGATIVE (NEGATIVE)
[2022-12-11 21:57] LABS: YEAST PRESENT (NEGATIVE)
[2022-12-12] MEDS ORDERED: CEFTRIAXONE 1 GM/50 ML BAG ONE ×2 (01:19→10:17)
[2022-12-12] MEDS ORDERED: clonazePAM 0.5 MG TABLET PO PRN (07:50)
[2022-12-12] MEDS ORDERED: ENOXAPARIN NA (PORCINE) 40 MG/0.4 ML DISP.SYRIN SQ ONE (10:17)
[2022-12-12] MEDS ORDERED: TAMSULOSIN HCL 0.4 MG CAP ONE (10:17)
[2022-12-12] MEDS: DEXTROSE 5%-0.45% SALINE 1,000 ML IV SCH (10:18)
[2022-12-12] MEDS: ENOXAPARIN NA (PORCINE) 40 MG/0.4 ML DISP.SYRIN SQ SCH (10:21)
[2022-12-12] MEDS: CEFTRIAXONE 1 GM in DEXTROSE 5%-WATER - 50 ML IVPB SCH (10:21)
[2022-12-12] MEDS: TAMSULOSIN HCL 0.4 MG CAP PO SCH (10:21)
[2022-12-12] MEDS: INSULIN SLIDING SCALE (NOVOLOG) 1 VIAL SQ SCH ×3 (11:24→21:47)
[2022-12-12] MEDS ORDERED: PREGABALIN 50 MG CAPSULE ONE (14:26)
[2022-12-12] MEDS ORDERED: PREGABALIN 25 MG CAPSULE ONE ×2 (14:26→21:21)
[2022-12-12] MEDS ORDERED: DOCUSATE SODIUM 100 MG CAPSULE (FP) PO ONE ×2 (14:26→21:22)
[2022-12-12] MEDS: PREGABALIN 75 MG CAPSULE PO SCH ×2 (14:33→22:19)
[2022-12-12] MEDS: DOCUSATE SODIUM 100 MG CAPSULE (FP) PO SCH ×2 (14:33→22:19)
[2022-12-12] MEDS: BETHANECHOL CHLORIDE 10 MG TABLET PO SCH ×2 (14:34→22:19)
[2022-12-12] MEDS ORDERED: INSULIN (LEVEMIR) 100 UNITS/ML UNITS SQ ONE (17:16)
[2022-12-12] MEDS: AMITRIPTYLINE HCL 25 MG TABLET PO SCH (22:19)
[2022-12-13] MEDS: DOCUSATE SODIUM 100 MG CAPSULE (FP) PO SCH ×4 (06:22→22:01)
[2022-12-13] MEDS ORDERED: PREGABALIN 25 MG CAPSULE ONE (06:43)
[2022-12-13] MEDS: BETHANECHOL CHLORIDE 10 MG TABLET PO SCH ×4 (06:58→22:01)
[2022-12-13] MEDS: PREGABALIN 75 MG CAPSULE PO SCH ×3 (06:58→22:01)
[2022-12-13] MEDS: INSULIN SLIDING SCALE (NOVOLOG) 1 VIAL SQ SCH ×4 (08:04→22:00)
[2022-12-13 08:36] LABS: BASO % 0.6 % (0-2.0); EOS % 1.8 % (0-4.5); HEMATOCRIT 30.5 % (32.4-45.2); HEMOGLOBIN 10.4 GM/dL (10.7-15.3); MCH 29.7 pg (25.7-33.7); MCHC 33.9 g/dl (32.0-36.0); MEAN CELL VOLUME 87.6 fl (80-96); MEAN PLT VOLUME 9.4 fl (7.5-11.1); MONO % 12.7 % (3.8-10.2); NEUT % 62.9 % (42.8-82.8); PLATELET COUNT 196 10^3/uL (134-434); RBC 3.49 M/mm3 (3.60-5.2); RDW 14.7 % (11.6-15.6); WHITE BLOOD COUNT 7.3 K/mm3 (4.0-10.0)
[2022-12-13 08:54] LABS: CALCIUM 8.4 mg/dL (8.5-10.1)
[2022-12-13 08:55] LABS: ALBUMIN 3.1 g/dl (3.4-5.0); BLOOD UREA NITROGEN 21.4 mg/dL (7-18)
[2022-12-13 08:58] LABS: CREATININE 0.9 mg/dL (0.55-1.3)
[2022-12-13 09:00] LABS: BILIRUBIN,TOTAL 0.2 mg/dL (0.2-1); TOT PROT 6.2 g/dl (6.4-8.2)
[2022-12-13] MEDS: DEXTROSE 5%-0.45% SALINE 1,000 ML IV SCH (09:00)
[2022-12-13] MEDS: ENOXAPARIN NA (PORCINE) 40 MG/0.4 ML DISP.SYRIN SQ SCH (10:05)
[2022-12-13] MEDS: CEFTRIAXONE 1 GM in DEXTROSE 5%-WATER - 50 ML IVPB SCH (10:05)
[2022-12-13] MEDS: TAMSULOSIN HCL 0.4 MG CAP PO SCH (10:05)
[2022-12-13] MEDS: INSULIN (LEVEMIR) 100 UNITS/ML UNITS SQ SCH (10:06)
[2022-12-13] MEDS ORDERED: INSULIN (NOVOLOG) ASPART 100 UNITS/ML 10ML VIAL ONE (18:15)
[2022-12-13] MEDS: AMITRIPTYLINE HCL 25 MG TABLET PO SCH (22:08)
[2022-12-14] MEDS: BETHANECHOL CHLORIDE 10 MG TABLET PO SCH ×3 (05:34→21:48)
[2022-12-14] MEDS: DOCUSATE SODIUM 100 MG CAPSULE (FP) PO SCH ×3 (05:34→21:47)
[2022-12-14] MEDS: PREGABALIN 75 MG CAPSULE PO SCH ×3 (05:34→21:47)
[2022-12-14] MEDS: INSULIN (LEVEMIR) 100 UNITS/ML UNITS SQ SCH (06:36)
[2022-12-14] MEDS ORDERED: INSULIN (LEVEMIR) 100 UNITS/ML UNITS SQ ONE (06:36)
[2022-12-14] MEDS: INSULIN SLIDING SCALE (NOVOLOG) 1 VIAL SQ SCH ×4 (06:37→21:48)
[2022-12-14] MEDS ORDERED: INSULIN (NOVOLOG) ASPART 100 UNITS/ML 10ML VIAL ONE (06:37)
[2022-12-14] MEDS: DEXTROSE 5%-0.45% SALINE 1,000 ML IV SCH ×2 (07:37→13:57)
[2022-12-14 07:58] LABS: CALCIUM 8.5 mg/dL (8.5-10.1)
[2022-12-14 07:59] LABS: BLOOD UREA NITROGEN 17.6 mg/dL (7-18)
[2022-12-14 08:02] LABS: CREATININE 0.7 mg/dL (0.55-1.3)
[2022-12-14 08:03] LABS: BILIRUBIN,TOTAL 0.4 mg/dL (0.2-1); TOT PROT 5.9 g/dl (6.4-8.2)
[2022-12-14] MEDS: TAMSULOSIN HCL 0.4 MG CAP PO SCH (09:25)
[2022-12-14] MEDS: ENOXAPARIN NA (PORCINE) 40 MG/0.4 ML DISP.SYRIN SQ SCH (09:25)
[2022-12-14] MEDS ORDERED: clonazePAM 0.5 MG TABLET PO PRN (10:05)
[2022-12-14 10:07] LABS: BASO % 0.8 % (0-2.0); EOS % 2.1 % (0-4.5); HEMATOCRIT 30.1 % (32.4-45.2); HEMOGLOBIN 10.5 GM/dL (10.7-15.3); LYMPH % 24.8 % (8-40); MCH 30.5 pg (25.7-33.7); MCHC 34.9 g/dl (32.0-36.0); MEAN CELL VOLUME 87.4 fl (80-96); MEAN PLT VOLUME 9.7 fl (7.5-11.1); MONO % 12.6 % (3.8-10.2); NEUT % 59.7 % (42.8-82.8); PLATELET COUNT 206 10^3/uL (134-434); RBC 3.44 M/mm3 (3.60-5.2); RDW 14.3 % (11.6-15.6); WHITE BLOOD COUNT 6.1 K/mm3 (4.0-10.0)
[2022-12-14] MEDS ORDERED: ACETAMINOPHEN 325 MG TABLET (FP) PO PRN (11:28)
[2022-12-14] MEDS: ACETAMINOPHEN 325 MG TABLET (FP) PO PRN ×2 (12:56→21:47)
[2022-12-14 15:37] LABS: EPI CELLS 23 /uL (0-25.1); HYALINE CASTS 1 /uL (0-3.1); URINE APPEARANCE CLEAR; URINE BACTERIA 4 /uL (0-1359); URINE BILIRUBIN NEGATIVE (NEGATIVE); URINE COLOR YELLOW; URINE GLUCOSE (UA) NEGATIVE (NEGATIVE); URINE KETONE NEGATIVE (NEGATIVE); URINE LEUK ESTERASE TRACE (NEGATIVE); URINE NITRITE NEGATIVE (NEGATIVE); URINE PROTEIN NEGATIVE (NEGATIVE); URINE RBC 4 /uL (0-23.9); URINE UROBILINOGEN 0.2 mg/dL (0.2-1.0); URINE WBC 52 /uL (0-25.8)
[2022-12-14] MEDS: ATORVASTATIN CA 20 MG TABLET (FP) PO SCH (21:47)
[2022-12-14] MEDS: AMITRIPTYLINE HCL 25 MG TABLET PO SCH (21:48)
[2022-12-15] MEDS: PREGABALIN 75 MG CAPSULE PO SCH ×3 (06:50→23:00)
[2022-12-15] MEDS: DOCUSATE SODIUM 100 MG CAPSULE (FP) PO SCH ×3 (06:50→23:00)
[2022-12-15] MEDS: BETHANECHOL CHLORIDE 10 MG TABLET PO SCH ×3 (06:50→23:00)
[2022-12-15] MEDS: INSULIN (LEVEMIR) 100 UNITS/ML UNITS SQ SCH (06:51)
[2022-12-15] MEDS: INSULIN SLIDING SCALE (NOVOLOG) 1 VIAL SQ SCH ×4 (06:51→23:00)
[2022-12-15 08:14] LABS: BASO % 0.6 % (0-2.0); EOS % 1.5 % (0-4.5); HEMATOCRIT 31.4 % (32.4-45.2); LYMPH % 20.7 % (8-40); MCH 30.5 pg (25.7-33.7); MCHC 34.9 g/dl (32.0-36.0); MEAN CELL VOLUME 87.2 fl (80-96); MEAN PLT VOLUME 9.8 fl (7.5-11.1); NEUT % 66.2 % (42.8-82.8); PLATELET COUNT 230 10^3/uL (134-434); RDW 14.3 % (11.6-15.6); WHITE BLOOD COUNT 7.2 K/mm3 (4.0-10.0)
[2022-12-15] MEDS ORDERED: TAMSULOSIN HCL 0.4 MG CAP PO SCH (08:30)
[2022-12-15 08:38] LABS: ALBUMIN 3.1 g/dl (3.4-5.0); BLOOD UREA NITROGEN 18.6 mg/dL (7-18); CALCIUM 8.8 mg/dL (8.5-10.1)
[2022-12-15 08:41] LABS: CREATININE 0.7 mg/dL (0.55-1.3)
[2022-12-15 08:42] LABS: TOT PROT 6.4 g/dl (6.4-8.2)
[2022-12-15 08:43] LABS: BILIRUBIN,TOTAL 0.2 mg/dL (0.2-1)
[2022-12-15 09:04] LABS: N-TERMINAL BNP 49.2 pg/ml (5-125)
[2022-12-15] MEDS ORDERED: REGADENOSON 0.4 MG/5 ML PRE-FILLED SYRINGE IVPUSH ONE ×2 (10:08→10:15)
[2022-12-15] MEDS: ACETAMINOPHEN 325 MG TABLET (FP) PO PRN (12:47)
[2022-12-15] MEDS: ENOXAPARIN NA (PORCINE) 40 MG/0.4 ML DISP.SYRIN SQ SCH (12:48)
[2022-12-15] MEDS: DEXTROSE 5%-0.45% SALINE 1,000 ML IV SCH (12:51)
[2022-12-15] MEDS: AMITRIPTYLINE HCL 25 MG TABLET PO SCH (22:59)
[2022-12-15] MEDS: ATORVASTATIN CA 20 MG TABLET (FP) PO SCH (23:00)
[2022-12-16] MEDS: INSULIN (LEVEMIR) 100 UNITS/ML UNITS SQ SCH (07:22)
[2022-12-16] MEDS: DOCUSATE SODIUM 100 MG CAPSULE (FP) PO SCH (07:23)
[2022-12-16] MEDS: INSULIN SLIDING SCALE (NOVOLOG) 1 VIAL SQ SCH ×3 (07:23→23:06)
[2022-12-16] MEDS: PREGABALIN 75 MG CAPSULE PO SCH (07:23)
[2022-12-16] MEDS: BETHANECHOL CHLORIDE 10 MG TABLET PO SCH (07:23)
[2022-12-16] MEDS ORDERED: INSULIN (NOVOLOG) ASPART 100 UNITS/ML 10ML VIAL ONE ×2 (07:54→11:36)
[2022-12-16] MEDS: ENOXAPARIN NA (PORCINE) 40 MG/0.4 ML DISP.SYRIN SQ SCH (09:19)
[2022-12-16] MEDS: ACETAMINOPHEN 325 MG TABLET (FP) PO PRN (09:29)
[2022-12-16] MEDS ORDERED: ACETAMINOPHEN 325 MG TABLET (FP) PO PRN (12:31)
[2022-12-16] MEDS ORDERED: levETIRAcetam 500 MG/5 ML INJECTION VIAL IVPB ONE (13:56)
[2022-12-16] MEDS ORDERED: LORazepam 2 MG/ML SDV VIAL IVPUSH ONE (13:58)
[2022-12-16] MEDS ORDERED: PREGABALIN 75 MG CAPSULE PO SCH (14:00)
[2022-12-16] MEDS ORDERED: BETHANECHOL CHLORIDE 10 MG TABLET PO SCH (14:00)
[2022-12-16] MEDS ORDERED: DOCUSATE SODIUM 100 MG CAPSULE (FP) PO SCH (14:00)
[2022-12-16 16:10] LABS: BASO % 0.6 % (0-2.0); EOS % 2.2 % (0-4.5); HEMATOCRIT 31.9 % (32.4-45.2); HEMOGLOBIN 10.8 GM/dL (10.7-15.3); LYMPH % 21.8 % (8-40); MCH 30.1 pg (25.7-33.7); MEAN CELL VOLUME 88.5 fl (80-96); MEAN PLT VOLUME 9.4 fl (7.5-11.1); MONO % 10.8 % (3.8-10.2); NEUT % 64.6 % (42.8-82.8); PLATELET COUNT 245 10^3/uL (134-434); RBC 3.61 M/mm3 (3.60-5.2); RDW 14.6 % (11.6-15.6); WHITE BLOOD COUNT 7.7 K/mm3 (4.0-10.0)
[2022-12-16 16:30] LABS: BLOOD UREA NITROGEN 22.1 mg/dL (7-18); CALCIUM 9.4 mg/dL (8.5-10.1)
[2022-12-16] MEDS ORDERED: INSULIN SLIDING SCALE (NOVOLOG) 1 VIAL SQ SCH (16:30)
[2022-12-16 16:31] LABS: ALBUMIN 3.1 g/dl (3.4-5.0); MAGNESIUM 1.7 mg/dL (1.8-2.4)
[2022-12-16 16:34] LABS: CREATININE 0.8 mg/dL (0.55-1.3); PHOSPHOROUS 3.9 mg/dL (2.5-4.9)
[2022-12-16 16:35] LABS: BILIRUBIN,TOTAL 0.2 mg/dL (0.2-1); TOT PROT 6.3 g/dl (6.4-8.2)
[2022-12-16] MEDS ORDERED: AMITRIPTYLINE HCL 25 MG TABLET PO SCH (22:00)
[2022-12-16] MEDS ORDERED: levETIRAcetam 500 MG TABLET (FP) PO SCH (22:00)
[2022-12-16] MEDS ORDERED: ATORVASTATIN CA 20 MG TABLET (FP) PO SCH (22:00)
[2022-12-17] MEDS: BETHANECHOL CHLORIDE 10 MG TABLET PO SCH ×4 (00:01→21:17)
[2022-12-17] MEDS: levETIRAcetam 500 MG TABLET (FP) PO SCH ×3 (00:04→21:18)
[2022-12-17] MEDS: AMITRIPTYLINE HCL 25 MG TABLET PO SCH ×2 (00:04→21:17)
[2022-12-17] MEDS: ATORVASTATIN CA 20 MG TABLET (FP) PO SCH ×2 (00:04→21:18)
[2022-12-17] MEDS ORDERED: INSULIN (LEVEMIR) 100 UNITS/ML UNITS SQ SCH (07:00)
[2022-12-17] MEDS: INSULIN (LEVEMIR) 100 UNITS/ML UNITS SQ SCH (07:36)
[2022-12-17] MEDS: DOCUSATE SODIUM 100 MG CAPSULE (FP) PO SCH ×4 (07:36→21:19)
[2022-12-17] MEDS: INSULIN SLIDING SCALE (NOVOLOG) 1 VIAL SQ SCH ×4 (07:36→21:18)
[2022-12-17 08:43] LABS: BASO % 0.3 % (0-2.0); EOS % 1.3 % (0-4.5); HEMATOCRIT 30.5 % (32.4-45.2); HEMOGLOBIN 10.6 GM/dL (10.7-15.3); LYMPH % 16.9 % (8-40); MCH 30.4 pg (25.7-33.7); MCHC 34.6 g/dl (32.0-36.0); MEAN PLT VOLUME 9.2 fl (7.5-11.1); MONO % 10.5 % (3.8-10.2); PLATELET COUNT 262 10^3/uL (134-434); RBC 3.47 M/mm3 (3.60-5.2); RDW 14.3 % (11.6-15.6); WHITE BLOOD COUNT 8.4 K/mm3 (4.0-10.0)
[2022-12-17 08:45] LABS: BLOOD UREA NITROGEN 20.4 mg/dL (7-18)
[2022-12-17 08:49] LABS: CREATININE 0.8 mg/dL (0.55-1.3)
[2022-12-17 08:50] LABS: BILIRUBIN,TOTAL 0.2 mg/dL (0.2-1); TOT PROT 6.4 g/dl (6.4-8.2)
[2022-12-17] MEDS ORDERED: ENOXAPARIN NA (PORCINE) 40 MG/0.4 ML DISP.SYRIN SQ SCH (10:00)
[2022-12-17] MEDS: ACETAMINOPHEN 325 MG TABLET (FP) PO PRN ×2 (10:00→19:06)
[2022-12-17] MEDS: ENOXAPARIN NA (PORCINE) 40 MG/0.4 ML DISP.SYRIN SQ SCH (10:00)
[2022-12-18] MEDS: BETHANECHOL CHLORIDE 10 MG TABLET PO SCH ×3 (05:56→21:17)
[2022-12-18] MEDS: DOCUSATE SODIUM 100 MG CAPSULE (FP) PO SCH ×3 (06:00→21:20)
[2022-12-18] MEDS: INSULIN (LEVEMIR) 100 UNITS/ML UNITS SQ SCH (06:30)
[2022-12-18] MEDS: INSULIN SLIDING SCALE (NOVOLOG) 1 VIAL SQ SCH ×4 (06:30→21:27)
[2022-12-18] MEDS: ACETAMINOPHEN 325 MG TABLET (FP) PO PRN ×2 (07:49→21:18)
[2022-12-18] MEDS: levETIRAcetam 500 MG TABLET (FP) PO SCH ×2 (10:29→21:17)
[2022-12-18] MEDS: ENOXAPARIN NA (PORCINE) 40 MG/0.4 ML DISP.SYRIN SQ SCH (10:29)
[2022-12-18] MEDS ORDERED: INSULIN (NOVOLOG) ASPART 100 UNITS/ML 10ML VIAL ONE ×2 (12:37→21:27)
[2022-12-18] MEDS: AMITRIPTYLINE HCL 25 MG TABLET PO SCH (21:17)
[2022-12-18] MEDS: ATORVASTATIN CA 20 MG TABLET (FP) PO SCH (21:17)
[2022-12-19] MEDS: BETHANECHOL CHLORIDE 10 MG TABLET PO SCH ×3 (05:51→21:46)
[2022-12-19] MEDS: DOCUSATE SODIUM 100 MG CAPSULE (FP) PO SCH ×4 (06:13→21:58)
[2022-12-19] MEDS: INSULIN (LEVEMIR) 100 UNITS/ML UNITS SQ SCH (06:26)
[2022-12-19] MEDS: INSULIN SLIDING SCALE (NOVOLOG) 1 VIAL SQ SCH ×5 (06:27→22:11)
[2022-12-19] MEDS: levETIRAcetam 500 MG TABLET (FP) PO SCH ×2 (09:04→21:46)
[2022-12-19] MEDS: ACETAMINOPHEN 325 MG TABLET (FP) PO PRN ×2 (09:04→18:24)
[2022-12-19] MEDS: ENOXAPARIN NA (PORCINE) 40 MG/0.4 ML DISP.SYRIN SQ SCH (09:29)
[2022-12-19] MEDS ORDERED: INSULIN (NOVOLOG) ASPART 100 UNITS/ML 10ML VIAL ONE (11:20)
[2022-12-19] MEDS: ATORVASTATIN CA 20 MG TABLET (FP) PO SCH (21:46)
[2022-12-19] MEDS: AMITRIPTYLINE HCL 25 MG TABLET PO SCH (21:46)
[2022-12-20] MEDS ORDERED: diphenhydrAMINE HCL 25 MG CAPSULE (FP) PO ONE ×2 (03:15→16:15)
[2022-12-20] MEDS: DOCUSATE SODIUM 100 MG CAPSULE (FP) PO SCH ×3 (06:08→21:33)
[2022-12-20] MEDS: INSULIN (LEVEMIR) 100 UNITS/ML UNITS SQ SCH (06:08)
[2022-12-20] MEDS: BETHANECHOL CHLORIDE 10 MG TABLET PO SCH ×3 (06:10→21:29)
[2022-12-20] MEDS: INSULIN SLIDING SCALE (NOVOLOG) 1 VIAL SQ SCH ×4 (06:11→21:33)
[2022-12-20] MEDS: levETIRAcetam 500 MG TABLET (FP) PO SCH ×2 (09:41→21:29)
[2022-12-20] MEDS: ENOXAPARIN NA (PORCINE) 40 MG/0.4 ML DISP.SYRIN SQ SCH (09:42)
[2022-12-20] MEDS: ACETAMINOPHEN 325 MG TABLET (FP) PO PRN ×3 (09:47→20:18)
[2022-12-20] MEDS ORDERED: INSULIN (NOVOLOG) ASPART 100 UNITS/ML 10ML VIAL ONE ×2 (11:52→16:36)
[2022-12-20] MEDS: ATORVASTATIN CA 20 MG TABLET (FP) PO SCH (21:29)
[2022-12-20] MEDS: AMITRIPTYLINE HCL 25 MG TABLET PO SCH (21:29)
[2022-12-21] MEDS ORDERED: diphenhydrAMINE HCL 25 MG CAPSULE (FP) PO ONE ×2 (03:27→23:50)
[2022-12-21] MEDS: BETHANECHOL CHLORIDE 10 MG TABLET PO SCH ×3 (06:13→21:34)
[2022-12-21] MEDS ORDERED: INSULIN (NOVOLOG) ASPART 100 UNITS/ML 10ML VIAL ONE ×3 (06:18→16:28)
[2022-12-21] MEDS: INSULIN SLIDING SCALE (NOVOLOG) 1 VIAL SQ SCH ×4 (06:19→22:34)
[2022-12-21] MEDS: INSULIN (LEVEMIR) 100 UNITS/ML UNITS SQ SCH (06:19)
[2022-12-21] MEDS: DOCUSATE SODIUM 100 MG CAPSULE (FP) PO SCH ×3 (06:21→21:34)
[2022-12-21 08:25] LABS: BASO % 0.9 % (0-2.0); EOS % 2.1 % (0-4.5); HEMATOCRIT 33.2 % (32.4-45.2); HEMOGLOBIN 11.3 GM/dL (10.7-15.3); MCH 30.2 pg (25.7-33.7); MCHC 34.1 g/dl (32.0-36.0); MEAN CELL VOLUME 88.6 fl (80-96); MEAN PLT VOLUME 10.1 fl (7.5-11.1); MONO % 13.7 % (3.8-10.2); NEUT % 58.3 % (42.8-82.8); PLATELET COUNT 294 10^3/uL (134-434); RBC 3.75 M/mm3 (3.60-5.2); RDW 14.1 % (11.6-15.6); WHITE BLOOD COUNT 6.4 K/mm3 (4.0-10.0)
[2022-12-21] MEDS: ACETAMINOPHEN 325 MG TABLET (FP) PO PRN ×2 (08:34→17:15)
[2022-12-21 09:00] LABS: CALCIUM 9.7 mg/dL (8.5-10.1)
[2022-12-21 09:02] LABS: ALBUMIN 3.5 g/dl (3.4-5.0); BLOOD UREA NITROGEN 23.1 mg/dL (7-18)
[2022-12-21 09:05] LABS: CREATININE 0.8 mg/dL (0.55-1.3)
[2022-12-21 09:06] LABS: BILIRUBIN,TOTAL 0.2 mg/dL (0.2-1)
[2022-12-21 09:07] LABS: TOT PROT 7.1 g/dl (6.4-8.2)
[2022-12-21] MEDS: levETIRAcetam 500 MG TABLET (FP) PO SCH ×2 (09:39→21:34)
[2022-12-21] MEDS: ENOXAPARIN NA (PORCINE) 40 MG/0.4 ML DISP.SYRIN SQ SCH (09:39)
[2022-12-21] MEDS: AMITRIPTYLINE HCL 25 MG TABLET PO SCH (21:34)
[2022-12-21] MEDS: ATORVASTATIN CA 20 MG TABLET (FP) PO SCH (21:34)
[2022-12-22] MEDS: DOCUSATE SODIUM 100 MG CAPSULE (FP) PO SCH ×3 (06:03→21:44)
[2022-12-22] MEDS: BETHANECHOL CHLORIDE 10 MG TABLET PO SCH ×4 (06:04→21:50)
[2022-12-22] MEDS: INSULIN (LEVEMIR) 100 UNITS/ML UNITS SQ SCH (06:05)
[2022-12-22] MEDS: INSULIN SLIDING SCALE (NOVOLOG) 1 VIAL SQ SCH ×4 (06:06→22:02)
[2022-12-22] MEDS: ENOXAPARIN NA (PORCINE) 40 MG/0.4 ML DISP.SYRIN SQ SCH (09:37)
[2022-12-22] MEDS: levETIRAcetam 500 MG TABLET (FP) PO SCH ×2 (09:37→21:50)
[2022-12-22] MEDS ORDERED: diphenhydrAMINE HCL 25 MG CAPSULE (FP) PO ONE ×2 (10:28→18:23)
[2022-12-22] MEDS ORDERED: INSULIN (NOVOLOG) ASPART 100 UNITS/ML 10ML VIAL ONE ×3 (11:08→22:01)
[2022-12-22] MEDS: ACETAMINOPHEN 325 MG TABLET (FP) PO PRN (15:37)
[2022-12-22] MEDS: ATORVASTATIN CA 20 MG TABLET (FP) PO SCH (21:50)
[2022-12-22] MEDS: AMITRIPTYLINE HCL 25 MG TABLET PO SCH (22:03)
[2022-12-22] MEDS ORDERED: methylPREDNISolone NA SUCC 40 MG/1 ML VIAL IVPUSH ONE (23:14)
[2022-12-22] MEDS: diphenhydrAMINE HCL 25 MG CAPSULE (FP) PO PRN (23:42)
[2022-12-23] MEDS: ACETAMINOPHEN 325 MG TABLET (FP) PO PRN ×3 (03:54→21:24)
[2022-12-23] MEDS: BETHANECHOL CHLORIDE 10 MG TABLET PO SCH ×4 (06:28→21:41)
[2022-12-23] MEDS: INSULIN (LEVEMIR) 100 UNITS/ML UNITS SQ SCH (06:28)
[2022-12-23] MEDS: DOCUSATE SODIUM 100 MG CAPSULE (FP) PO SCH ×3 (06:29→21:25)
[2022-12-23] MEDS ORDERED: INSULIN (NOVOLOG) ASPART 100 UNITS/ML 10ML VIAL ONE ×2 (06:34→11:29)
[2022-12-23] MEDS: INSULIN SLIDING SCALE (NOVOLOG) 1 VIAL SQ SCH ×4 (06:39→21:32)
[2022-12-23] MEDS: levETIRAcetam 500 MG TABLET (FP) PO SCH ×2 (09:28→21:26)
[2022-12-23] MEDS: ENOXAPARIN NA (PORCINE) 40 MG/0.4 ML DISP.SYRIN SQ SCH (09:28)
[2022-12-23] MEDS: diphenhydrAMINE HCL 25 MG CAPSULE (FP) PO PRN ×2 (13:59→21:26)
[2022-12-23] MEDS ORDERED: methylPREDNISolone NA SUCC 40 MG/1 ML VIAL IVPUSH ONE (20:21)
[2022-12-23] MEDS: AMITRIPTYLINE HCL 25 MG TABLET PO SCH (21:26)
[2022-12-23] MEDS: ATORVASTATIN CA 20 MG TABLET (FP) PO SCH (21:26)
[2022-12-24] MEDS ORDERED: INSULIN (NOVOLOG) ASPART 100 UNITS/ML 10ML VIAL ONE ×3 (06:05→21:37)
[2022-12-24] MEDS: DOCUSATE SODIUM 100 MG CAPSULE (FP) PO SCH ×3 (06:32→21:56)
[2022-12-24] MEDS: BETHANECHOL CHLORIDE 10 MG TABLET PO SCH ×3 (06:32→21:57)
[2022-12-24] MEDS: INSULIN SLIDING SCALE (NOVOLOG) 1 VIAL SQ SCH ×4 (06:33→21:59)
[2022-12-24] MEDS: INSULIN (LEVEMIR) 100 UNITS/ML UNITS SQ SCH (06:33)
[2022-12-24] MEDS: ACETAMINOPHEN 325 MG TABLET (FP) PO PRN ×2 (08:41→21:58)
[2022-12-24] MEDS: levETIRAcetam 500 MG TABLET (FP) PO SCH ×2 (09:16→21:58)
[2022-12-24] MEDS ORDERED: methylPREDNISolone NA SUCC 40 MG/1 ML VIAL IVPUSH SCH (10:00)
[2022-12-24] MEDS: diphenhydrAMINE HCL 25 MG CAPSULE (FP) PO PRN ×2 (15:40→22:00)
[2022-12-24] MEDS: AMITRIPTYLINE HCL 25 MG TABLET PO SCH (21:58)
[2022-12-24] MEDS: ATORVASTATIN CA 20 MG TABLET (FP) PO SCH (21:59)
[2022-12-25] MEDS ORDERED: D5-1/2NS+20 MEQ KCL - 20 MEQ/1,000 ML INFUS.BAG IV SCH (00:01)
[2022-12-25] MEDS: BETHANECHOL CHLORIDE 10 MG TABLET PO SCH ×4 (06:02→22:58)
[2022-12-25] MEDS: DOCUSATE SODIUM 100 MG CAPSULE (FP) PO SCH ×4 (06:02→22:32)
[2022-12-25] MEDS: INSULIN (LEVEMIR) 100 UNITS/ML UNITS SQ SCH (06:03)
[2022-12-25] MEDS ORDERED: VANCOMYCIN 1,000 MG VIAL (RESTRICTED TO ID ONLY) ONE (07:14)
[2022-12-25] MEDS ORDERED: THROMBIN (BOVINE) 5,000 UNIT VIAL TP ONE ×2 (07:15→09:19)
[2022-12-25] MEDS ORDERED: GENTAMICIN SO4 80 MG/2 ML VIAL ONE (07:15)
[2022-12-25] MEDS ORDERED: BUPIVACAINE HCL/PF 0.5% (5MG/ML) 10 ML VIAL ONE (07:15)
[2022-12-25] MEDS ORDERED: ONDANSETRON 4 MG/2 ML VIAL IVPUSH PRN ×2 (07:33→09:53)
[2022-12-25] MEDS ORDERED: PROMETHAZINE HCL 25 MG/1 ML VIAL IVPB PRN (07:33)
[2022-12-25] MEDS: INSULIN SLIDING SCALE (NOVOLOG) 1 VIAL SQ SCH ×4 (07:41→22:26)
[2022-12-25] MEDS ORDERED: ROCURONIUM BROMIDE 50 MG/5 ML SYRINGE ONE (07:42)
[2022-12-25] MEDS ORDERED: MIDAZOLAM HCL 2 MG/2 ML SINGLE DOSE VIAL ONE ×2 (07:42→10:02)
[2022-12-25] MEDS ORDERED: PROPOFOL 20 ML ONE (07:42)
[2022-12-25] MEDS ORDERED: LIDOCAINE HCL/PF 2% SDV 5ML VIAL ONE (07:43)
[2022-12-25] MEDS ORDERED: LACTATED RINGERS SOLUTION 1,000 ML IV SCH (07:45)
[2022-12-25] MEDS ORDERED: SODIUM CHLORIDE 0.9% P/F 10 ML VIAL IJ ONE (07:46)
[2022-12-25] MEDS ORDERED: ceFAZolin SODIUM 1 GM VIAL ONE (07:46)
[2022-12-25] MEDS ORDERED: ceFAZolin SODIUM 1 GM VIAL IVPB ONE (08:04)
[2022-12-25] MEDS ORDERED: ONDANSETRON 4 MG/2 ML VIAL ONE (08:28)
[2022-12-25] MEDS ORDERED: LIDOCAINE 1%/EPI 1:100000 (20 ML MULTI DOSE VIAL) IJ ONE ×2 (08:33)
[2022-12-25] MEDS ORDERED: GLYCOPYRROLATE 0.2 MG/1 ML VIAL ONE (09:36)
[2022-12-25] MEDS ORDERED: NEOSTIGMINE METHYLSULFATE 0.5 MG/1 ML - 10 ML MDV ONE (09:36)
[2022-12-25] MEDS ORDERED: BACITRACIN ZINC 15 GM TUBE TOPICAL OINTMENT ONE (09:40)
[2022-12-25] MEDS ORDERED: CEFAZOLIN 1 GM in DEXTROSE 5%-WATER - 50 ML IVPB SCH (10:00)
[2022-12-25] MEDS ORDERED: ACETAMINOPHEN 325 MG TABLET (FP) PO PRN (10:38)
[2022-12-25] MEDS: diphenhydrAMINE HCL 25 MG CAPSULE (FP) PO PRN ×2 (11:25→22:27)
[2022-12-25] MEDS ORDERED: ACETAMINOPHEN INJECTION 100 ML IVPB ONE (11:55)
[2022-12-25] MEDS ORDERED: DEXAMETHASONE SOD PHOSPHATE 4 MG/1 ML VIAL ONE (12:32)
[2022-12-25] MEDS: DEXAMETHASONE SOD PHOSPHATE 4 MG/1 ML VIAL IVPUSH ONE ×2 (12:45)
[2022-12-25] MEDS: D5-NS + 20 MEQ KCL - 20 MEQ/1,000 ML INFUS.BAG IV SCH (12:55)
[2022-12-25 12:57] LABS: BASO % 0.4 % (0-2.0); EOS % 0.2 % (0-4.5); HEMATOCRIT 28.4 % (32.4-45.2); LYMPH % 17.7 % (8-40); MCHC 35.1 g/dl (32.0-36.0); MEAN CELL VOLUME 88.3 fl (80-96); MEAN PLT VOLUME 9.6 fl (7.5-11.1); MONO % 8.7 % (3.8-10.2); PLATELET COUNT 265 10^3/uL (134-434); RBC 3.22 M/mm3 (3.60-5.2); RDW 13.6 % (11.6-15.6); WHITE BLOOD COUNT 9.6 K/mm3 (4.0-10.0)
[2022-12-25 13:18] LABS: CALCIUM 9.3 mg/dL (8.5-10.1)
[2022-12-25 13:19] LABS: BLOOD UREA NITROGEN 23.8 mg/dL (7-18)
[2022-12-25 13:21] LABS: ALBUMIN 3.4 g/dl (3.4-5.0)
[2022-12-25 13:22] LABS: CREATININE 0.9 mg/dL (0.55-1.3)
[2022-12-25 13:23] LABS: BILIRUBIN,TOTAL 0.2 mg/dL (0.2-1); TOT PROT 6.7 g/dl (6.4-8.2)
[2022-12-25] MEDS ORDERED: ACETAMINOPHEN 1000 MG/100 ML BAG IVPB ONE (13:32)
[2022-12-25] MEDS: ACETAMINOPHEN 1000 MG/100 ML BAG IVPB PRN ×2 (15:02→20:29)
[2022-12-25] MEDS: PANTOPRAZOLE SODIUM 40 MG VIAL IVPUSH SCH (15:46)
[2022-12-25] MEDS: levETIRAcetam 500 MG TABLET (FP) PO SCH ×2 (15:54→22:25)
[2022-12-25] MEDS: CEFAZOLIN 1 GM in DEXTROSE 5%-WATER - 50 ML IVPB SCH (18:30)
[2022-12-25] MEDS ORDERED: AMITRIPTYLINE HCL 25 MG TABLET PO SCH (22:00)
[2022-12-25] MEDS ORDERED: ATORVASTATIN CA 20 MG TABLET (FP) PO SCH (22:00)
[2022-12-26] MEDS: CEFAZOLIN 1 GM in DEXTROSE 5%-WATER - 50 ML IVPB SCH ×2 (01:07→09:16)
[2022-12-26] MEDS: D5-NS + 20 MEQ KCL - 20 MEQ/1,000 ML INFUS.BAG IV SCH ×3 (04:29→21:18)
[2022-12-26] MEDS: BETHANECHOL CHLORIDE 10 MG TABLET PO SCH ×3 (05:58→21:31)
[2022-12-26] MEDS: DOCUSATE SODIUM 100 MG CAPSULE (FP) PO SCH ×4 (05:58→21:30)
[2022-12-26] MEDS: INSULIN SLIDING SCALE (NOVOLOG) 1 VIAL SQ SCH ×4 (06:06→21:31)
[2022-12-26] MEDS: ACETAMINOPHEN 1000 MG/100 ML BAG IVPB PRN (06:08)
[2022-12-26] MEDS ORDERED: INSULIN (LEVEMIR) 100 UNITS/ML UNITS SQ SCH (07:00)
[2022-12-26 07:21] LABS: HEMATOCRIT 27.7 % (32.4-45.2); HEMOGLOBIN 9.6 GM/dL (10.7-15.3); MCH 30.2 pg (25.7-33.7); MCHC 34.4 g/dl (32.0-36.0); MEAN CELL VOLUME 87.7 fl (80-96); PLATELET COUNT 234 10^3/uL (134-434); RBC 3.16 M/mm3 (3.60-5.2); RDW 13.7 % (11.6-15.6)
[2022-12-26 07:44] LABS: CALCIUM 9.1 mg/dL (8.5-10.1)
[2022-12-26 07:45] LABS: BLOOD UREA NITROGEN 13.2 mg/dL (7-18)
[2022-12-26 07:48] LABS: CREATININE 0.8 mg/dL (0.55-1.3)
[2022-12-26] MEDS: PANTOPRAZOLE SODIUM 40 MG VIAL IVPUSH SCH (09:17)
[2022-12-26] MEDS: levETIRAcetam 500 MG TABLET (FP) PO SCH ×2 (10:51→21:18)
[2022-12-26] MEDS ORDERED: ONDANSETRON 4 MG/2 ML VIAL IVPUSH PRN (20:55)
[2022-12-26] MEDS: ATORVASTATIN CA 20 MG TABLET (FP) PO SCH (21:18)
[2022-12-26] MEDS: AMITRIPTYLINE HCL 25 MG TABLET PO SCH (22:23)
[2022-12-27] MEDS: DOCUSATE SODIUM 100 MG CAPSULE (FP) PO SCH ×3 (05:22→21:26)
[2022-12-27] MEDS: BETHANECHOL CHLORIDE 10 MG TABLET PO SCH ×3 (05:23→21:27)
[2022-12-27] MEDS ORDERED: INSULIN (LEVEMIR) 100 UNITS/ML UNITS SQ ONE (05:49)
[2022-12-27] MEDS ORDERED: INSULIN (NOVOLOG) ASPART 100 UNITS/ML 10ML VIAL ONE (05:49)
[2022-12-27] MEDS: INSULIN SLIDING SCALE (NOVOLOG) 1 VIAL SQ SCH ×4 (06:01→21:31)
[2022-12-27] MEDS: INSULIN (LEVEMIR) 100 UNITS/ML UNITS SQ SCH (06:02)
[2022-12-27] MEDS: D5-NS + 20 MEQ KCL - 20 MEQ/1,000 ML INFUS.BAG IV SCH ×3 (09:23→23:01)
[2022-12-27] MEDS: levETIRAcetam 500 MG TABLET (FP) PO SCH ×2 (09:24→21:25)
[2022-12-27] MEDS ORDERED: PANTOPRAZOLE SODIUM 40 MG VIAL IVPUSH SCH (10:00)
[2022-12-27 10:34] LABS: BASO % 0.8 % (0-2.0); EOS % 2.8 % (0-4.5); HEMATOCRIT 36.3 % (32.4-45.2); HEMOGLOBIN 12.4 GM/dL (10.7-15.3); LYMPH % 25.4 % (8-40); MCH 30.7 pg (25.7-33.7); MEAN CELL VOLUME 90.2 fl (80-96); MEAN PLT VOLUME 9.3 fl (7.5-11.1); MONO % 7.7 % (3.8-10.2); NEUT % 63.3 % (42.8-82.8); PLATELET COUNT 171 10^3/uL (134-434); RBC 4.03 M/mm3 (3.60-5.2); RDW 14.1 % (11.6-15.6); WHITE BLOOD COUNT 5.9 K/mm3 (4.0-10.0)
[2022-12-27 11:05] LABS: BLOOD UREA NITROGEN 17.6 mg/dL (7-18); CALCIUM 7.9 mg/dL (8.5-10.1); MAGNESIUM 1.9 mg/dL (1.8-2.4)
[2022-12-27 11:08] LABS: CREATININE 0.6 mg/dL (0.55-1.3); PHOSPHOROUS 3.2 mg/dL (2.5-4.9)
[2022-12-27 11:10] LABS: BILIRUBIN,TOTAL 0.4 mg/dL (0.2-1); TOT PROT 5.4 g/dl (6.4-8.2)
[2022-12-27 11:13] LABS: ALBUMIN 2.6 g/dl (3.4-5.0)
[2022-12-27] MEDS: AMITRIPTYLINE HCL 25 MG TABLET PO SCH (21:25)
[2022-12-27] MEDS: ATORVASTATIN CA 20 MG TABLET (FP) PO SCH (21:25)
[2022-12-27] MEDS: diphenhydrAMINE HCL 25 MG CAPSULE (FP) PO PRN (23:01)
[2022-12-28] MEDS: BETHANECHOL CHLORIDE 10 MG TABLET PO SCH ×3 (05:05→21:07)
[2022-12-28] MEDS: DOCUSATE SODIUM 100 MG CAPSULE (FP) PO SCH ×5 (05:05→21:08)
[2022-12-28] MEDS: INSULIN (LEVEMIR) 100 UNITS/ML UNITS SQ SCH (06:07)
[2022-12-28] MEDS: INSULIN SLIDING SCALE (NOVOLOG) 1 VIAL SQ SCH ×4 (06:07→21:55)
[2022-12-28] MEDS: levETIRAcetam 500 MG TABLET (FP) PO SCH ×2 (09:08→21:06)
[2022-12-28] MEDS: HEPARIN NA (PORCINE) 5,000 UNITS/ML 1ML VIAL SQ SCH ×2 (09:08→21:06)
[2022-12-28] MEDS: PANTOPRAZOLE 40 MG TABLET PO SCH (09:09)
[2022-12-28] MEDS: ATORVASTATIN CA 20 MG TABLET (FP) PO SCH (21:06)
[2022-12-28] MEDS: AMITRIPTYLINE HCL 25 MG TABLET PO SCH (21:07)
[2022-12-28] MEDS: D5-NS + 20 MEQ KCL - 20 MEQ/1,000 ML INFUS.BAG IV SCH (21:08)
[2022-12-28] MEDS ORDERED: INSULIN (NOVOLOG) ASPART 100 UNITS/ML 10ML VIAL ONE (21:30)
[2022-12-28] MEDS: diphenhydrAMINE HCL 25 MG CAPSULE (FP) PO PRN (22:30)
[2022-12-29] MEDS: D5-NS + 20 MEQ KCL - 20 MEQ/1,000 ML INFUS.BAG IV SCH ×3 (02:40→21:29)
[2022-12-29] MEDS: DOCUSATE SODIUM 100 MG CAPSULE (FP) PO SCH ×3 (06:29→21:29)
[2022-12-29] MEDS: diphenhydrAMINE HCL 25 MG CAPSULE (FP) PO PRN ×3 (06:29→21:50)
[2022-12-29] MEDS: INSULIN (LEVEMIR) 100 UNITS/ML UNITS SQ SCH (06:32)
[2022-12-29] MEDS: INSULIN SLIDING SCALE (NOVOLOG) 1 VIAL SQ SCH ×4 (06:32→21:30)
[2022-12-29] MEDS: BETHANECHOL CHLORIDE 10 MG TABLET PO SCH ×3 (06:33→21:29)
[2022-12-29 08:53] LABS: BASO % 0.6 % (0-2.0); EOS % 3.4 % (0-4.5); HEMATOCRIT 23.8 % (32.4-45.2); HEMOGLOBIN 8.4 GM/dL (10.7-15.3); LYMPH % 19.5 % (8-40); MCH 30.8 pg (25.7-33.7); MCHC 35.3 g/dl (32.0-36.0); MEAN CELL VOLUME 87.4 fl (80-96); NEUT % 65.5 % (42.8-82.8); PLATELET COUNT 233 10^3/uL (134-434); RBC 2.72 M/mm3 (3.60-5.2); RDW 13.4 % (11.6-15.6); WHITE BLOOD COUNT 7.1 K/mm3 (4.0-10.0)
[2022-12-29 09:08] LABS: CALCIUM 8.8 mg/dL (8.5-10.1)
[2022-12-29 09:09] LABS: ALBUMIN 2.5 g/dl (3.4-5.0); BLOOD UREA NITROGEN 6.6 mg/dL (7-18)
[2022-12-29 09:12] LABS: CREATININE 0.7 mg/dL (0.55-1.3)
[2022-12-29 09:13] LABS: TOT PROT 5.8 g/dl (6.4-8.2)
[2022-12-29 09:14] LABS: BILIRUBIN,TOTAL 0.3 mg/dL (0.2-1)
[2022-12-29] MEDS: HEPARIN NA (PORCINE) 5,000 UNITS/ML 1ML VIAL SQ SCH ×2 (09:18→21:29)
[2022-12-29] MEDS: levETIRAcetam 500 MG TABLET (FP) PO SCH ×2 (09:18→21:29)
[2022-12-29] MEDS: PANTOPRAZOLE 40 MG TABLET PO SCH (09:18)
[2022-12-29] MEDS ORDERED: INSULIN (NOVOLOG) ASPART 100 UNITS/ML 10ML VIAL ONE ×2 (12:01→16:22)
[2022-12-29] MEDS: POLYETHYLENE GLYCOL (HEALTHYLAX) 3350 17 GM PACKET PO SCH (18:24)
[2022-12-29] MEDS: ATORVASTATIN CA 20 MG TABLET (FP) PO SCH (21:29)
[2022-12-29] MEDS: AMITRIPTYLINE HCL 25 MG TABLET PO SCH (21:29)
[2022-12-29] MEDS: ACETAMINOPHEN 1000 MG/100 ML BAG IVPB PRN (21:49)
[2022-12-30] MEDS: DOCUSATE SODIUM 100 MG CAPSULE (FP) PO SCH ×3 (06:15→21:01)
[2022-12-30] MEDS: BETHANECHOL CHLORIDE 10 MG TABLET PO SCH ×3 (06:17→21:03)
[2022-12-30] MEDS: INSULIN (LEVEMIR) 100 UNITS/ML UNITS SQ SCH (06:19)
[2022-12-30] MEDS: INSULIN SLIDING SCALE (NOVOLOG) 1 VIAL SQ SCH ×4 (06:19→21:02)
[2022-12-30] MEDS: ACETAMINOPHEN 1000 MG/100 ML BAG IVPB PRN ×2 (08:50→15:35)
[2022-12-30] MEDS: levETIRAcetam 500 MG TABLET (FP) PO SCH ×2 (09:30→21:01)
[2022-12-30] MEDS: HEPARIN NA (PORCINE) 5,000 UNITS/ML 1ML VIAL SQ SCH ×2 (09:30→21:02)
[2022-12-30] MEDS: PANTOPRAZOLE 40 MG TABLET PO SCH (09:30)
[2022-12-30] MEDS: POLYETHYLENE GLYCOL (HEALTHYLAX) 3350 17 GM PACKET PO SCH (09:30)
[2022-12-30] MEDS: D5-NS + 20 MEQ KCL - 20 MEQ/1,000 ML INFUS.BAG IV SCH (11:04)
[2022-12-30 13:54] LABS: BASO % 1.1 % (0-2.0); EOS % 3.9 % (0-4.5); HEMATOCRIT 25.2 % (32.4-45.2); HEMOGLOBIN 8.8 GM/dL (10.7-15.3); LYMPH % 21.2 % (8-40); MCH 30.3 pg (25.7-33.7); MCHC 34.8 g/dl (32.0-36.0); MEAN PLT VOLUME 9.1 fl (7.5-11.1); NEUT % 62.8 % (42.8-82.8); PLATELET COUNT 292 10^3/uL (134-434); RDW 13.3 % (11.6-15.6); WHITE BLOOD COUNT 6.7 K/mm3 (4.0-10.0)
[2022-12-30 14:05] LABS: CALCIUM 8.8 mg/dL (8.5-10.1)
[2022-12-30 14:06] LABS: ALBUMIN 2.6 g/dl (3.4-5.0)
[2022-12-30 14:09] LABS: CREATININE 0.8 mg/dL (0.55-1.3)
[2022-12-30 14:10] LABS: BILIRUBIN,TOTAL 0.3 mg/dL (0.2-1); TOT PROT 6.1 g/dl (6.4-8.2)
[2022-12-30] MEDS: AMITRIPTYLINE HCL 25 MG TABLET PO SCH (21:02)
[2022-12-30] MEDS: ATORVASTATIN CA 20 MG TABLET (FP) PO SCH (21:06)
[2022-12-30] MEDS ORDERED: ACETAMINOPHEN 1000 MG/100 ML BAG IVPB ONE (22:00)
[2022-12-31] MEDS: ACETAMINOPHEN 1000 MG/100 ML BAG IVPB PRN ×3 (03:44→18:59)
[2022-12-31] MEDS: D5-NS + 20 MEQ KCL - 20 MEQ/1,000 ML INFUS.BAG IV SCH ×2 (03:45→18:08)
[2022-12-31] MEDS ORDERED: INSULIN (NOVOLOG) ASPART 100 UNITS/ML 10ML VIAL ONE ×2 (06:24→21:05)
[2022-12-31] MEDS: DOCUSATE SODIUM 100 MG CAPSULE (FP) PO SCH ×3 (06:26→21:24)
[2022-12-31] MEDS: BETHANECHOL CHLORIDE 10 MG TABLET PO SCH ×3 (06:26→21:24)
[2022-12-31] MEDS: INSULIN (LEVEMIR) 100 UNITS/ML UNITS SQ SCH (06:26)
[2022-12-31] MEDS: INSULIN SLIDING SCALE (NOVOLOG) 1 VIAL SQ SCH ×4 (06:26→21:24)
[2022-12-31 09:12] LABS: BASO % 0.8 % (0-2.0); EOS % 3.5 % (0-4.5); HEMATOCRIT 25.7 % (32.4-45.2); HEMOGLOBIN 8.9 GM/dL (10.7-15.3); LYMPH % 23.3 % (8-40); MCH 30.1 pg (25.7-33.7); MCHC 34.7 g/dl (32.0-36.0); MEAN PLT VOLUME 9.4 fl (7.5-11.1); MONO % 11.4 % (3.8-10.2); PLATELET COUNT 304 10^3/uL (134-434); RBC 2.96 M/mm3 (3.60-5.2); RDW 13.2 % (11.6-15.6); WHITE BLOOD COUNT 6.7 K/mm3 (4.0-10.0)
[2022-12-31 09:26] LABS: CALCIUM 8.8 mg/dL (8.5-10.1)
[2022-12-31 09:27] LABS: ALBUMIN 2.6 g/dl (3.4-5.0); BLOOD UREA NITROGEN 9.3 mg/dL (7-18)
[2022-12-31 09:30] LABS: CREATININE 0.7 mg/dL (0.55-1.3)
[2022-12-31 09:32] LABS: BILIRUBIN,TOTAL 0.2 mg/dL (0.2-1)
[2022-12-31] MEDS: HEPARIN NA (PORCINE) 5,000 UNITS/ML 1ML VIAL SQ SCH ×2 (10:34→22:00)
[2022-12-31] MEDS: PANTOPRAZOLE 40 MG TABLET PO SCH (10:34)
[2022-12-31] MEDS: levETIRAcetam 500 MG TABLET (FP) PO SCH ×2 (10:34→21:24)
[2022-12-31] MEDS: POLYETHYLENE GLYCOL (HEALTHYLAX) 3350 17 GM PACKET PO SCH (10:36)
[2022-12-31] MEDS ORDERED: DEXAMETHASONE SOD PHOSPHATE 4 MG/1 ML VIAL IVPUSH ONE (13:40)
[2022-12-31] MEDS: BACITRACIN/POLYMYXIN B SULFATE 15 GM TUBE TP SCH (18:09)
[2022-12-31] MEDS: AMITRIPTYLINE HCL 25 MG TABLET PO SCH (21:24)
[2022-12-31] MEDS: ATORVASTATIN CA 20 MG TABLET (FP) PO SCH (21:24)
[2023-01-01] MEDS ORDERED: ACETAMINOPHEN 325 MG TABLET (FP) PO PRN (01:41)
[2023-01-01] MEDS: DOCUSATE SODIUM 100 MG CAPSULE (FP) PO SCH ×3 (05:43→15:11)
[2023-01-01] MEDS: BETHANECHOL CHLORIDE 10 MG TABLET PO SCH ×2 (05:43→15:07)
[2023-01-01] MEDS: INSULIN (LEVEMIR) 100 UNITS/ML UNITS SQ SCH (06:22)
[2023-01-01] MEDS: INSULIN SLIDING SCALE (NOVOLOG) 1 VIAL SQ SCH ×3 (06:23→17:45)
[2023-01-01] MEDS: D5-NS + 20 MEQ KCL - 20 MEQ/1,000 ML INFUS.BAG IV SCH (08:53)
[2023-01-01] MEDS ORDERED: traMADol HCL 50 MG TABLET PO PRN (08:56)
[2023-01-01 08:57] VITALS: TEMP 97.4
[2023-01-01] MEDS: levETIRAcetam 500 MG TABLET (FP) PO SCH (09:24)
[2023-01-01] MEDS: POLYETHYLENE GLYCOL (HEALTHYLAX) 3350 17 GM PACKET PO SCH (09:24)
[2023-01-01] MEDS: HEPARIN NA (PORCINE) 5,000 UNITS/ML 1ML VIAL SQ SCH (09:24)
[2023-01-01] MEDS: PANTOPRAZOLE 40 MG TABLET PO SCH (09:25)
[2023-01-01] MEDS: BACITRACIN/POLYMYXIN B SULFATE 15 GM TUBE TP SCH (09:38)
[2023-01-01 18:02] VITALS: PULSE 76
[2023-01-01 18:05] VITALS: BP 130/76; RESP 20
== END 2023-01-01 18:09 | DRG 26 ==
LOC: JER 14:22 → UNDOADMOB 12-12 01:21 → JERBED 12-12 01:21 → INTOOBSV 12-12 01:21 → J5S 12-13 09:03 → JERBED 12-13 09:03 → J5S 12-13 09:04 → JERBED 12-13 09:49 → J5S 12-13 09:49 → J4W 12-13 15:33 → OBSVTOIN 12-15 11:45 → J6S 12-16 11:12 → J4W 12-16 19:19 → JICU 12-25 13:35 → J6S 12-26 18:41
PROVIDERS: ADMIT Internal Medicine; ATTEND Internal Medicine
PROC: 0NS004Z Reposition Skull with Internal Fixation Device, Open Approach (ICD-10-PCS; 2022-12-25)
PROC: 00B00ZZ Excision of Brain, Open Approach (ICD-10-PCS; principal; 2022-12-25 07:30)
DX: D18.02 Hemangioma of intracranial structures (principal); G99.2 Myelopathy in diseases classified elsewhere; N17.9 Acute kidney failure, unspecified; N39.0 Urinary tract infection, site not specified; J45.909 Unspecified asthma, uncomplicated; E11.9 Type 2 diabetes mellitus without complications; E78.5 Hyperlipidemia, unspecified; M48.02 Spinal stenosis, cervical region; I44.7 Left bundle-branch block, unspecified; R29.6 Repeated falls; N31.9 Neuromuscular dysfunction of bladder, unspecified; R55 Syncope and collapse; E86.0 Dehydration; R56.9 Unspecified convulsions; E78.00 Pure hypercholesterolemia, unspecified; L29.9 Pruritus, unspecified
CPT/HCPCS: 0241U-QW; 36415; 36430; 70450-TC; 70553-TC; 71045-TC-FY; 72125-TC; 72131-TC; 72148-TC; 72156-TC; 74176-TC; 78452-TC; 80048; 80053; 80061; 80307; 81003; 82550; 82607; 82728; 82962; 83036; 83540; 83550; 83605; 83690; 83735; 83880; 84100; 84146; 84443; 84484; 85025; 85027; 85610; 85730; 86850; 86900; 86901; 86922; 87077; 87086; 88307-TC; 88331-TC; 93005; 93010; 93017; 93306-TC; 93880-TC; 94760; 97116-GP; 97162-GP; 99285-25; A9502; A9579; C1776; G0378; J1644; J2785

== ENCOUNTER 2023-01-08 12:50 | Inpatient (IN) | payer OTHER ==
[2023-01-08] MEDS ORDERED: levETIRAcetam 500 MG/5 ML INJECTION VIAL IVPB ONE ×2 (13:11→13:30)
[2023-01-08 14:40] LABS: BASO % 1.3 % (0-2.0); EOS % 3.7 % (0-4.5); HEMATOCRIT 31.1 % (32.4-45.2); HEMOGLOBIN 10.5 GM/dL (10.7-15.3); LYMPH % 30.3 % (8-40); MCH 30.1 pg (25.7-33.7); MCHC 33.7 g/dl (32.0-36.0); MEAN CELL VOLUME 89.3 fl (80-96); MEAN PLT VOLUME 7.9 fl (7.5-11.1); MONO % 7.5 % (3.8-10.2); NEUT % 57.2 % (42.8-82.8); PLATELET COUNT 366 10^3/uL (134-434); RBC 3.48 M/mm3 (3.60-5.2)
[2023-01-08 14:48] LABS: INR 0.97 (0.83-1.09); PROTHROMBIN TIME (PATIENT) 11.3 SEC (9.7-13.0)
[2023-01-08 14:51] LABS: ACTIVATED PTT 33.9 SECONDS (25.2-36.5)
[2023-01-08 15:12] LABS: EPI CELLS 18 /uL (0-25.1); HYALINE CASTS 0 /uL (0-3.1); URINE APPEARANCE CLEAR; URINE BACTERIA 2622 /uL (0-1359); URINE BILIRUBIN NEGATIVE (NEGATIVE); URINE COLOR YELLOW; URINE GLUCOSE (UA) NEGATIVE (NEGATIVE); URINE KETONE NEGATIVE (NEGATIVE); URINE LEUK ESTERASE 3+ (NEGATIVE); URINE NITRITE NEGATIVE (NEGATIVE); URINE PROTEIN NEGATIVE (NEGATIVE); URINE RBC 9 /uL (0-23.9); URINE UROBILINOGEN 0.2 mg/dL (0.2-1.0); URINE WBC 286 /uL (0-25.8)
[2023-01-08 15:17] LABS: POTASSIUM 4.9 mmol/L (3.5-5.1)
[2023-01-08 15:19] LABS: BLOOD UREA NITROGEN 13.6 mg/dL (7-18); CALCIUM 9.5 mg/dL (8.5-10.1)
[2023-01-08 15:22] LABS: CREATININE 0.7 mg/dL (0.55-1.3)
[2023-01-08 15:24] LABS: BILIRUBIN,TOTAL 0.2 mg/dL (0.2-1); TOT PROT 7.8 g/dl (6.4-8.2)
[2023-01-08 15:31] LABS: ALBUMIN 3.7 g/dl (3.4-5.0)
[2023-01-08] MEDS ORDERED: CEFTRIAXONE 1 GM in DEXTROSE 5%-WATER - 100 ML IVPB ONE (16:04)
[2023-01-08] MEDS ORDERED: CEFTRIAXONE 1 GM/50 ML BAG ONE (16:09)
[2023-01-08] MEDS ORDERED: ALBUTEROL SO4 2.5/IPRATROPIUM 0.5 INH SOL 3 ML VIAL.NEB. NEB PRN (17:00)
[2023-01-08] MEDS: ACETAMINOPHEN 325 MG TABLET (FP) PO PRN (21:59)
[2023-01-08] MEDS: levETIRAcetam 500 MG TABLET (FP) PO SCH (22:00)
[2023-01-08] MEDS: AMITRIPTYLINE HCL 25 MG TABLET PO SCH (22:00)
[2023-01-08] MEDS: INSULIN (LEVEMIR) 100 UNITS/ML UNITS SQ SCH (22:00)
[2023-01-08] MEDS: HEPARIN NA (PORCINE) 5,000 UNITS/ML 1ML VIAL SQ SCH (22:00)
[2023-01-08] MEDS: ATORVASTATIN CA 40 MG TABLET (FP) PO SCH (22:03)
[2023-01-08] MEDS: PREGABALIN 75 MG CAPSULE PO SCH (22:03)
[2023-01-08] MEDS: INSULIN SLIDING SCALE (NOVOLOG) 1 VIAL SQ SCH (22:07)
[2023-01-08] MEDS: BETHANECHOL CHLORIDE 10 MG TABLET PO SCH (22:18)
[2023-01-08] MEDS: clonazePAM 0.5 MG TABLET PO SCH (22:20)
[2023-01-09] MEDS: INSULIN SLIDING SCALE (NOVOLOG) 1 VIAL SQ SCH ×4 (06:35→22:46)
[2023-01-09] MEDS: metFORMIN HCL 500 MG TABLET (FP) PO SCH ×2 (06:36→16:29)
[2023-01-09] MEDS: BETHANECHOL CHLORIDE 10 MG TABLET PO SCH ×3 (06:36→22:46)
[2023-01-09] MEDS: clonazePAM 0.5 MG TABLET PO SCH ×2 (06:37→16:29)
[2023-01-09] MEDS: ACETAMINOPHEN 325 MG TABLET (FP) PO PRN ×2 (07:44→13:51)
[2023-01-09] MEDS: PANTOPRAZOLE 40 MG TABLET PO SCH (09:36)
[2023-01-09] MEDS: levETIRAcetam 500 MG TABLET (FP) PO SCH ×2 (09:37→22:44)
[2023-01-09] MEDS: PREGABALIN 75 MG CAPSULE PO SCH ×2 (09:37→22:45)
[2023-01-09] MEDS: HEPARIN NA (PORCINE) 5,000 UNITS/ML 1ML VIAL SQ SCH ×2 (09:37→22:44)
[2023-01-09] MEDS: LORazepam 2 MG/ML SDV VIAL IVPUSH ONE (21:04)
[2023-01-09] MEDS ORDERED: levETIRAcetam 500 MG/5 ML INJECTION VIAL IVPB ONE (21:54)
[2023-01-09] MEDS: AMITRIPTYLINE HCL 25 MG TABLET PO SCH (22:43)
[2023-01-09] MEDS: ATORVASTATIN CA 40 MG TABLET (FP) PO SCH (22:45)
[2023-01-09] MEDS: INSULIN (LEVEMIR) 100 UNITS/ML UNITS SQ SCH (23:09)
[2023-01-10] MEDS: clonazePAM 0.5 MG TABLET PO SCH ×2 (06:40→17:52)
[2023-01-10] MEDS: BETHANECHOL CHLORIDE 10 MG TABLET PO SCH ×2 (06:52→13:52)
[2023-01-10] MEDS: metFORMIN HCL 500 MG TABLET (FP) PO SCH ×2 (06:52→17:52)
[2023-01-10] MEDS: INSULIN SLIDING SCALE (NOVOLOG) 1 VIAL SQ SCH ×4 (06:53→22:22)
[2023-01-10] MEDS ORDERED: levETIRAcetam 500 MG/5 ML INJECTION VIAL IVPB ONE (09:36)
[2023-01-10] MEDS ORDERED: LORazepam 2 MG/ML SDV VIAL IVPUSH ONE ×2 (09:37→19:49)
[2023-01-10] MEDS ORDERED: LORazepam 2 MG/ML SDV VIAL IVPUSH PRN (09:40)
[2023-01-10] MEDS: HEPARIN NA (PORCINE) 5,000 UNITS/ML 1ML VIAL SQ SCH ×2 (10:14→22:02)
[2023-01-10] MEDS: levETIRAcetam 500 MG TABLET (FP) PO SCH (11:27)
[2023-01-10] MEDS: ACETAMINOPHEN 325 MG TABLET (FP) PO PRN (11:28)
[2023-01-10] MEDS: PANTOPRAZOLE 40 MG TABLET PO SCH (11:28)
[2023-01-10] MEDS: PREGABALIN 75 MG CAPSULE PO SCH ×2 (11:28→22:03)
[2023-01-10] MEDS ORDERED: CEFTRIAXONE 1 GM in DEXTROSE 5%-WATER - 50 ML IVPB SCH (12:00)
[2023-01-10] MEDS ORDERED: MAGNESIUM SULF 50% (8.12 MEQ/2 ML-1 GM VIAL) IVPB ONE (14:31)
[2023-01-10] MEDS: LORazepam 2 MG/ML SDV VIAL IVPUSH ONE (14:34)
[2023-01-10 15:11] LABS: HEMATOCRIT 28.2 % (32.4-45.2); HEMOGLOBIN 9.5 GM/dL (10.7-15.3); MCHC 33.7 g/dl (32.0-36.0); MEAN PLT VOLUME 7.9 fl (7.5-11.1); PLATELET COUNT 275 10^3/uL (134-434); RBC 3.17 M/mm3 (3.60-5.2); WHITE BLOOD COUNT 5.6 K/mm3 (4.0-10.0)
[2023-01-10] MEDS ORDERED: MAGNESIUM 2GM/50ML STERILE WATER IVPB IVPB ONE ×2 (15:30→18:15)
[2023-01-10 15:36] LABS: POTASSIUM 4.4 mmol/L (3.5-5.1)
[2023-01-10 15:39] LABS: CALCIUM 9.3 mg/dL (8.5-10.1)
[2023-01-10 15:40] LABS: ALBUMIN 3.1 g/dl (3.4-5.0); BLOOD UREA NITROGEN 13.9 mg/dL (7-18)
[2023-01-10 15:43] LABS: CREATININE 0.8 mg/dL (0.55-1.3); PHOSPHOROUS 4.5 mg/dL (2.5-4.9)
[2023-01-10 15:45] LABS: BILIRUBIN,TOTAL 0.3 mg/dL (0.2-1); TOT PROT 6.6 g/dl (6.4-8.2)
[2023-01-10] MEDS: SODIUM CHLORIDE 1,000 ML IV SCH (20:43)
[2023-01-10] MEDS: levETIRAcetam 500 MG/5 ML INJECTION VIAL IVPB SCH (20:46)
[2023-01-10] MEDS ORDERED: levETIRAcetam 500 MG/5 ML INJECTION VIAL IVPB SCH ×2 (22:00)
[2023-01-10] MEDS: CHLORHEXIDINE GLUCONATE 4% CLEANSER FOR DECOLONIZATION TP SCH (22:02)
[2023-01-10] MEDS: ATORVASTATIN CA 40 MG TABLET (FP) PO SCH (22:03)
[2023-01-10] MEDS: MUPIROCIN 2% TOPICAL OINTMENT FOR DECOLONIZATION NS SCH (22:05)
[2023-01-10] MEDS: INSULIN (LEVEMIR) 100 UNITS/ML UNITS SQ SCH (22:21)
[2023-01-11] MEDS: clonazePAM 0.5 MG TABLET PO SCH ×2 (05:49→20:30)
[2023-01-11] MEDS: ACETAMINOPHEN 325 MG TABLET (FP) PO PRN ×2 (06:29→13:46)
[2023-01-11] MEDS: INSULIN SLIDING SCALE (NOVOLOG) 1 VIAL SQ SCH ×4 (06:30→21:52)
[2023-01-11] MEDS: metFORMIN HCL 500 MG TABLET (FP) PO SCH ×2 (06:30→20:30)
[2023-01-11 07:13] LABS: BASO % 0.8 % (0-2.0); EOS % 2.9 % (0-4.5); HEMATOCRIT 26.9 % (32.4-45.2); HEMOGLOBIN 9.6 GM/dL (10.7-15.3); LYMPH % 21.9 % (8-40); MCH 31.5 pg (25.7-33.7); MCHC 35.6 g/dl (32.0-36.0); MEAN CELL VOLUME 88.4 fl (80-96); MEAN PLT VOLUME 8.4 fl (7.5-11.1); MONO % 6.4 % (3.8-10.2); PLATELET COUNT 272 10^3/uL (134-434); RBC 3.04 M/mm3 (3.60-5.2); WHITE BLOOD COUNT 7.5 K/mm3 (4.0-10.0)
[2023-01-11 07:29] LABS: POTASSIUM 4.2 mmol/L (3.5-5.1)
[2023-01-11 07:34] LABS: ALBUMIN 3.1 g/dl (3.4-5.0); CALCIUM 9.1 mg/dL (8.5-10.1)
[2023-01-11 07:35] LABS: BLOOD UREA NITROGEN 14.9 mg/dL (7-18)
[2023-01-11 07:38] LABS: CREATININE 0.7 mg/dL (0.55-1.3); TOT PROT 6.4 g/dl (6.4-8.2)
[2023-01-11 07:40] LABS: BILIRUBIN,TOTAL 0.2 mg/dL (0.2-1)
[2023-01-11] MEDS: MUPIROCIN 2% TOPICAL OINTMENT FOR DECOLONIZATION NS SCH ×2 (09:52→21:52)
[2023-01-11] MEDS: levETIRAcetam 500 MG/5 ML INJECTION VIAL IVPB SCH ×2 (09:53→21:40)
[2023-01-11] MEDS: HEPARIN NA (PORCINE) 5,000 UNITS/ML 1ML VIAL SQ SCH ×2 (09:56→21:41)
[2023-01-11] MEDS: PANTOPRAZOLE 40 MG TABLET PO SCH (09:56)
[2023-01-11] MEDS: PREGABALIN 75 MG CAPSULE PO SCH ×2 (09:56→21:40)
[2023-01-11] MEDS: LORazepam 2 MG/ML SDV VIAL IVPUSH PRN (15:56)
[2023-01-11] MEDS: ATORVASTATIN CA 40 MG TABLET (FP) PO SCH (21:40)
[2023-01-11] MEDS: CHLORHEXIDINE GLUCONATE 4% CLEANSER FOR DECOLONIZATION TP SCH (21:41)
[2023-01-11] MEDS: INSULIN (LEVEMIR) 100 UNITS/ML UNITS SQ SCH (21:52)
[2023-01-11] MEDS: SODIUM CHLORIDE 1,000 ML IV SCH (22:00)
[2023-01-12] MEDS: clonazePAM 0.5 MG TABLET PO SCH ×2 (06:24→16:54)
[2023-01-12] MEDS: metFORMIN HCL 500 MG TABLET (FP) PO SCH ×2 (06:24→16:54)
[2023-01-12] MEDS: ACETAMINOPHEN 325 MG TABLET (FP) PO PRN ×3 (06:24→18:51)
[2023-01-12] MEDS: INSULIN SLIDING SCALE (NOVOLOG) 1 VIAL SQ SCH ×4 (06:31→21:45)
[2023-01-12 06:39] LABS: BASO % 0.9 % (0-2.0); EOS % 3.4 % (0-4.5); HEMOGLOBIN 9.7 GM/dL (10.7-15.3); LYMPH % 29.1 % (8-40); MCH 30.6 pg (25.7-33.7); MCHC 34.6 g/dl (32.0-36.0); MEAN CELL VOLUME 88.3 fl (80-96); MEAN PLT VOLUME 8.6 fl (7.5-11.1); NEUT % 58.6 % (42.8-82.8); PLATELET COUNT 233 10^3/uL (134-434); RBC 3.17 M/mm3 (3.60-5.2); RDW 13.8 % (11.6-15.6); WHITE BLOOD COUNT 5.5 K/mm3 (4.0-10.0)
[2023-01-12 06:53] LABS: POTASSIUM 4.5 mmol/L (3.5-5.1)
[2023-01-12 06:55] LABS: CALCIUM 9.8 mg/dL (8.5-10.1)
[2023-01-12 06:57] LABS: BLOOD UREA NITROGEN 16.8 mg/dL (7-18)
[2023-01-12 06:58] LABS: CREATININE 0.8 mg/dL (0.55-1.3)
[2023-01-12 07:01] LABS: BILIRUBIN,TOTAL 0.2 mg/dL (0.2-1); TOT PROT 6.4 g/dl (6.4-8.2)
[2023-01-12] MEDS: PREGABALIN 75 MG CAPSULE PO SCH ×2 (09:47→21:20)
[2023-01-12] MEDS: HEPARIN NA (PORCINE) 5,000 UNITS/ML 1ML VIAL SQ SCH ×2 (09:47→21:20)
[2023-01-12] MEDS: PANTOPRAZOLE 40 MG TABLET PO SCH (09:47)
[2023-01-12] MEDS: MUPIROCIN 2% TOPICAL OINTMENT FOR DECOLONIZATION NS SCH ×2 (09:48→21:21)
[2023-01-12] MEDS: levETIRAcetam 500 MG/5 ML INJECTION VIAL IVPB SCH ×2 (10:09→21:20)
[2023-01-12] MEDS: SODIUM CHLORIDE 1,000 ML IV SCH (18:51)
[2023-01-12] MEDS: ATORVASTATIN CA 40 MG TABLET (FP) PO SCH (21:20)
[2023-01-12] MEDS: CHLORHEXIDINE GLUCONATE 4% CLEANSER FOR DECOLONIZATION TP SCH (21:20)
[2023-01-12] MEDS: INSULIN (LEVEMIR) 100 UNITS/ML UNITS SQ SCH (21:47)
[2023-01-13] MEDS: metFORMIN HCL 500 MG TABLET (FP) PO SCH ×2 (06:03→17:21)
[2023-01-13] MEDS: clonazePAM 0.5 MG TABLET PO SCH ×2 (06:03→17:22)
[2023-01-13] MEDS: ACETAMINOPHEN 325 MG TABLET (FP) PO PRN ×2 (06:07→13:04)
[2023-01-13] MEDS: INSULIN SLIDING SCALE (NOVOLOG) 1 VIAL SQ SCH ×4 (06:24→21:17)
[2023-01-13] MEDS: levETIRAcetam 500 MG/5 ML INJECTION VIAL IVPB SCH ×2 (09:05→21:15)
[2023-01-13] MEDS: HEPARIN NA (PORCINE) 5,000 UNITS/ML 1ML VIAL SQ SCH ×2 (09:06→21:16)
[2023-01-13] MEDS: PANTOPRAZOLE 40 MG TABLET PO SCH (09:06)
[2023-01-13] MEDS: PREGABALIN 75 MG CAPSULE PO SCH ×2 (09:06→21:17)
[2023-01-13] MEDS: MUPIROCIN 2% TOPICAL OINTMENT FOR DECOLONIZATION NS SCH ×2 (11:37→21:16)
[2023-01-13] MEDS ORDERED: KETOROLAC TROMETHAMINE 15 MG/ML VIAL IVPUSH ONE ×3 (13:26→20:45)
[2023-01-13] MEDS: LORazepam 2 MG/ML SDV VIAL IVPUSH PRN (13:51)
[2023-01-13] MEDS: CHLORHEXIDINE GLUCONATE 4% CLEANSER FOR DECOLONIZATION TP SCH (21:16)
[2023-01-13] MEDS: ATORVASTATIN CA 40 MG TABLET (FP) PO SCH (21:16)
[2023-01-13] MEDS: INSULIN (LEVEMIR) 100 UNITS/ML UNITS SQ SCH (21:17)
[2023-01-14] MEDS: clonazePAM 0.5 MG TABLET PO SCH ×2 (05:35→17:00)
[2023-01-14] MEDS: SODIUM CHLORIDE 1,000 ML IV SCH (05:36)
[2023-01-14] MEDS: INSULIN SLIDING SCALE (NOVOLOG) 1 VIAL SQ SCH ×4 (06:01→21:11)
[2023-01-14] MEDS: metFORMIN HCL 500 MG TABLET (FP) PO SCH ×2 (06:01→17:00)
[2023-01-14] MEDS: PANTOPRAZOLE 40 MG TABLET PO SCH (11:03)
[2023-01-14] MEDS: PREGABALIN 75 MG CAPSULE PO SCH ×2 (11:03→21:10)
[2023-01-14] MEDS: HEPARIN NA (PORCINE) 5,000 UNITS/ML 1ML VIAL SQ SCH ×2 (11:04→21:09)
[2023-01-14] MEDS: levETIRAcetam 500 MG/5 ML INJECTION VIAL IVPB SCH ×2 (11:04→21:09)
[2023-01-14] MEDS: MUPIROCIN 2% TOPICAL OINTMENT FOR DECOLONIZATION NS SCH ×2 (11:04→21:10)
[2023-01-14] MEDS: ACETAMINOPHEN 325 MG TABLET (FP) PO PRN ×2 (15:59→21:10)
[2023-01-14] MEDS: ATORVASTATIN CA 40 MG TABLET (FP) PO SCH (21:10)
[2023-01-14] MEDS: CHLORHEXIDINE GLUCONATE 4% CLEANSER FOR DECOLONIZATION TP SCH (21:10)
[2023-01-14] MEDS: INSULIN (LEVEMIR) 100 UNITS/ML UNITS SQ SCH (21:11)
[2023-01-15] MEDS: clonazePAM 0.5 MG TABLET PO SCH (05:51)
[2023-01-15] MEDS: metFORMIN HCL 500 MG TABLET (FP) PO SCH ×2 (06:01→15:58)
[2023-01-15] MEDS: INSULIN SLIDING SCALE (NOVOLOG) 1 VIAL SQ SCH ×4 (06:02→21:31)
[2023-01-15] MEDS: PANTOPRAZOLE 40 MG TABLET PO SCH (09:20)
[2023-01-15] MEDS: HEPARIN NA (PORCINE) 5,000 UNITS/ML 1ML VIAL SQ SCH ×2 (09:20→21:26)
[2023-01-15] MEDS: PREGABALIN 75 MG CAPSULE PO SCH ×2 (09:20→22:18)
[2023-01-15] MEDS: ACETAMINOPHEN 325 MG TABLET (FP) PO PRN (09:21)
[2023-01-15] MEDS: MUPIROCIN 2% TOPICAL OINTMENT FOR DECOLONIZATION NS SCH (09:21)
[2023-01-15] MEDS: levETIRAcetam 500 MG/5 ML INJECTION VIAL IVPB SCH ×2 (09:21→21:26)
[2023-01-15] MEDS ORDERED: KETOROLAC TROMETHAMINE 15 MG/ML VIAL IVPUSH ONE ×2 (13:45→23:45)
[2023-01-15 20:29] LABS: BASO % 0.6 % (0-2.0); EOS % 4.6 % (0-4.5); HEMATOCRIT 28.5 % (32.4-45.2); HEMOGLOBIN 9.5 GM/dL (10.7-15.3); LYMPH % 34.2 % (8-40); MCH 29.9 pg (25.7-33.7); MCHC 33.4 g/dl (32.0-36.0); MEAN CELL VOLUME 89.4 fl (80-96); MEAN PLT VOLUME 8.7 fl (7.5-11.1); NEUT % 49.6 % (42.8-82.8); PLATELET COUNT 187 10^3/uL (134-434); RBC 3.19 M/mm3 (3.60-5.2); RDW 13.9 % (11.6-15.6); WHITE BLOOD COUNT 4.7 K/mm3 (4.0-10.0)
[2023-01-15 20:44] LABS: POTASSIUM 4.3 mmol/L (3.5-5.1)
[2023-01-15 20:46] LABS: BLOOD UREA NITROGEN 13.1 mg/dL (7-18); MAGNESIUM 1.5 mg/dL (1.8-2.4)
[2023-01-15 20:50] LABS: CREATININE 0.7 mg/dL (0.55-1.3); PHOSPHOROUS 4.3 mg/dL (2.5-4.9)
[2023-01-15 20:51] LABS: BILIRUBIN,TOTAL 0.2 mg/dL (0.2-1); TOT PROT 6.3 g/dl (6.4-8.2)
[2023-01-15] MEDS: SODIUM CHLORIDE 1,000 ML IV SCH ×2 (21:24→21:25)
[2023-01-15] MEDS: INSULIN (LEVEMIR) 100 UNITS/ML UNITS SQ SCH (21:26)
[2023-01-15] MEDS: ATORVASTATIN CA 40 MG TABLET (FP) PO SCH (21:26)
[2023-01-15] MEDS: CHLORHEXIDINE GLUCONATE 4% CLEANSER FOR DECOLONIZATION TP SCH (21:26)
[2023-01-16] MEDS: metFORMIN HCL 500 MG TABLET (FP) PO SCH (06:06)
[2023-01-16] MEDS: INSULIN SLIDING SCALE (NOVOLOG) 1 VIAL SQ SCH ×3 (06:08→22:45)
[2023-01-16] MEDS: HEPARIN NA (PORCINE) 5,000 UNITS/ML 1ML VIAL SQ SCH ×2 (09:25→23:01)
[2023-01-16] MEDS: levETIRAcetam 500 MG/5 ML INJECTION VIAL IVPB SCH ×2 (09:25→23:01)
[2023-01-16] MEDS: PANTOPRAZOLE 40 MG TABLET PO SCH (09:26)
[2023-01-16] MEDS: PREGABALIN 75 MG CAPSULE PO SCH ×2 (09:26→23:02)
[2023-01-16] MEDS ORDERED: KETOROLAC TROMETHAMINE 15 MG/ML VIAL IVPUSH ONE (12:29)
[2023-01-16] MEDS ORDERED: ACETAMINOPHEN 325 MG TABLET (FP) PO PRN ×2 (14:00→16:20)
[2023-01-16] MEDS ORDERED: SENNOSIDES 8.6MG TABLET (FP) PO PRN ×3 (14:02→19:26)
[2023-01-16] MEDS ORDERED: POLYETHYLENE GLYCOL (HEALTHYLAX) 3350 17 GM PACKET PO SCH (14:15)
[2023-01-16] MEDS ORDERED: INSULIN SLIDING SCALE (NOVOLOG) 1 VIAL SQ SCH ×2 (16:30)
[2023-01-16] MEDS ORDERED: metFORMIN HCL 500 MG TABLET (FP) PO SCH ×2 (16:30)
[2023-01-16] MEDS ORDERED: hydrALAZINE HCL 20 MG/ML VIAL IVPUSH ONE (17:05)
[2023-01-16] MEDS ORDERED: hydrALAZINE HCL 20 MG/ML VIAL ONE (17:07)
[2023-01-16] MEDS ORDERED: LORazepam 2 MG/ML SDV VIAL IVPUSH ONE (17:17)
[2023-01-16 21:57] LABS: EPI CELLS 9 /uL (0-25.1); HYALINE CASTS 0 /uL (0-3.1); PH,URINE 7.5 (5.0-8.0); URINE APPEARANCE CLEAR; URINE BACTERIA 8 /uL (0-1359); URINE BILIRUBIN NEGATIVE (NEGATIVE); URINE COLOR YELLOW; URINE GLUCOSE (UA) NEGATIVE (NEGATIVE); URINE KETONE NEGATIVE (NEGATIVE); URINE LEUK ESTERASE TRACE (NEGATIVE); URINE NITRITE NEGATIVE (NEGATIVE); URINE PROTEIN NEGATIVE (NEGATIVE); URINE RBC 8 /uL (0-23.9); URINE UROBILINOGEN 0.2 mg/dL (0.2-1.0); URINE WBC 35 /uL (0-25.8)
[2023-01-16] MEDS ORDERED: HEPARIN NA (PORCINE) 5,000 UNITS/ML 1ML VIAL SQ SCH ×2 (22:00)
[2023-01-16] MEDS ORDERED: ATORVASTATIN CA 40 MG TABLET (FP) PO SCH ×2 (22:00)
[2023-01-16] MEDS ORDERED: INSULIN (LEVEMIR) 100 UNITS/ML UNITS SQ SCH ×2 (22:00)
[2023-01-16] MEDS ORDERED: PREGABALIN 75 MG CAPSULE PO SCH (22:00)
[2023-01-16] MEDS ORDERED: CHLORHEXIDINE GLUCONATE 4% CLEANSER FOR DECOLONIZATION TP SCH ×2 (22:00)
[2023-01-16] MEDS ORDERED: levETIRAcetam 500 MG/5 ML INJECTION VIAL IVPB SCH (22:00)
[2023-01-16] MEDS ORDERED: INSULIN (LEVEMIR) 100 UNITS/ML UNITS SQ ONE (22:48)
[2023-01-16] MEDS: ATORVASTATIN CA 40 MG TABLET (FP) PO SCH (23:02)
[2023-01-16] MEDS: INSULIN (LEVEMIR) 100 UNITS/ML UNITS SQ SCH (23:02)
[2023-01-17] MEDS: INSULIN SLIDING SCALE (NOVOLOG) 1 VIAL SQ SCH ×4 (06:53→21:37)
[2023-01-17] MEDS: metFORMIN HCL 500 MG TABLET (FP) PO SCH ×2 (06:53→16:30)
[2023-01-17 07:25] LABS: BASO % 0.5 % (0-2.0); EOS % 3.2 % (0-4.5); HEMATOCRIT 31.5 % (32.4-45.2); HEMOGLOBIN 10.6 GM/dL (10.7-15.3); LYMPH % 22.5 % (8-40); MCH 30.1 pg (25.7-33.7); MCHC 33.7 g/dl (32.0-36.0); MEAN CELL VOLUME 89.5 fl (80-96); MEAN PLT VOLUME 9.1 fl (7.5-11.1); MONO % 8.8 % (3.8-10.2); PLATELET COUNT 211 10^3/uL (134-434); RBC 3.53 M/mm3 (3.60-5.2); RDW 14.1 % (11.6-15.6); WHITE BLOOD COUNT 5.8 K/mm3 (4.0-10.0)
[2023-01-17 07:45] LABS: POTASSIUM 3.9 mmol/L (3.5-5.1)
[2023-01-17 07:49] LABS: CALCIUM 8.8 mg/dL (8.5-10.1)
[2023-01-17 07:50] LABS: ALBUMIN 3.3 g/dl (3.4-5.0); BLOOD UREA NITROGEN 15.3 mg/dL (7-18)
[2023-01-17 07:53] LABS: CREATININE 0.8 mg/dL (0.55-1.3)
[2023-01-17 07:54] LABS: TOT PROT 6.7 g/dl (6.4-8.2)
[2023-01-17 07:55] LABS: BILIRUBIN,TOTAL 0.2 mg/dL (0.2-1)
[2023-01-17] MEDS: levETIRAcetam 500 MG/5 ML INJECTION VIAL IVPB SCH ×2 (09:33→21:35)
[2023-01-17] MEDS: PANTOPRAZOLE 40 MG TABLET PO SCH (09:33)
[2023-01-17] MEDS: HEPARIN NA (PORCINE) 5,000 UNITS/ML 1ML VIAL SQ SCH ×2 (09:33→21:36)
[2023-01-17] MEDS: PREGABALIN 75 MG CAPSULE PO SCH ×2 (09:33→21:36)
[2023-01-17] MEDS: POLYETHYLENE GLYCOL (HEALTHYLAX) 3350 17 GM PACKET PO SCH (09:34)
[2023-01-17] MEDS ORDERED: POLYETHYLENE GLYCOL (HEALTHYLAX) 3350 17 GM PACKET PO SCH (10:00)
[2023-01-17] MEDS ORDERED: PANTOPRAZOLE 40 MG TABLET PO SCH ×2 (10:00)
[2023-01-17] MEDS ORDERED: INSULIN (NOVOLOG) ASPART 100 UNITS/ML 10ML VIAL ONE ×2 (16:37→21:27)
[2023-01-17] MEDS ORDERED: INSULIN (LEVEMIR) 100 UNITS/ML UNITS SQ ONE (21:26)
[2023-01-17] MEDS: ATORVASTATIN CA 40 MG TABLET (FP) PO SCH (21:36)
[2023-01-17] MEDS: INSULIN (LEVEMIR) 100 UNITS/ML UNITS SQ SCH (21:36)
[2023-01-18] MEDS: ACETAMINOPHEN 325 MG TABLET (FP) PO PRN ×3 (04:11→20:39)
[2023-01-18] MEDS: INSULIN SLIDING SCALE (NOVOLOG) 1 VIAL SQ SCH ×4 (06:31→21:24)
[2023-01-18] MEDS: metFORMIN HCL 500 MG TABLET (FP) PO SCH ×2 (06:33→17:18)
[2023-01-18] MEDS: PREGABALIN 75 MG CAPSULE PO SCH ×2 (09:09→21:05)
[2023-01-18] MEDS: POLYETHYLENE GLYCOL (HEALTHYLAX) 3350 17 GM PACKET PO SCH (09:09)
[2023-01-18] MEDS: PANTOPRAZOLE 40 MG TABLET PO SCH (09:09)
[2023-01-18] MEDS: HEPARIN NA (PORCINE) 5,000 UNITS/ML 1ML VIAL SQ SCH ×2 (09:09→21:06)
[2023-01-18] MEDS: lamoTRIgine 25 MG TABLET PO SCH ×2 (09:09→21:05)
[2023-01-18] MEDS: levETIRAcetam 500 MG/5 ML INJECTION VIAL IVPB SCH ×2 (09:09→21:06)
[2023-01-18] MEDS: ATORVASTATIN CA 40 MG TABLET (FP) PO SCH (21:06)
[2023-01-18] MEDS: INSULIN (LEVEMIR) 100 UNITS/ML UNITS SQ SCH (21:24)
[2023-01-19] MEDS: ACETAMINOPHEN 325 MG TABLET (FP) PO PRN ×3 (03:15→21:21)
[2023-01-19] MEDS: INSULIN SLIDING SCALE (NOVOLOG) 1 VIAL SQ SCH ×4 (06:13→21:13)
[2023-01-19] MEDS: metFORMIN HCL 500 MG TABLET (FP) PO SCH ×2 (06:14→16:30)
[2023-01-19 07:31] LABS: EOS % 5.1 % (0-4.5); HEMATOCRIT 29.2 % (32.4-45.2); HEMOGLOBIN 10.1 GM/dL (10.7-15.3); LYMPH % 34.9 % (8-40); MCH 30.8 pg (25.7-33.7); MCHC 34.7 g/dl (32.0-36.0); MEAN CELL VOLUME 88.9 fl (80-96); MEAN PLT VOLUME 10.2 fl (7.5-11.1); MONO % 10.2 % (3.8-10.2); NEUT % 48.8 % (42.8-82.8); PLATELET COUNT 199 10^3/uL (134-434); RBC 3.28 M/mm3 (3.60-5.2); WHITE BLOOD COUNT 5.8 K/mm3 (4.0-10.0)
[2023-01-19 07:39] LABS: POTASSIUM 4.2 mmol/L (3.5-5.1)
[2023-01-19 08:00] LABS: CALCIUM 9.7 mg/dL (8.5-10.1)
[2023-01-19 08:01] LABS: ALBUMIN 3.3 g/dl (3.4-5.0); BLOOD UREA NITROGEN 20.8 mg/dL (7-18)
[2023-01-19 08:04] LABS: CREATININE 0.8 mg/dL (0.55-1.3)
[2023-01-19 08:05] LABS: BILIRUBIN,TOTAL 0.3 mg/dL (0.2-1); TOT PROT 6.7 g/dl (6.4-8.2)
[2023-01-19] MEDS: HEPARIN NA (PORCINE) 5,000 UNITS/ML 1ML VIAL SQ SCH ×2 (09:12→21:12)
[2023-01-19] MEDS: POLYETHYLENE GLYCOL (HEALTHYLAX) 3350 17 GM PACKET PO SCH (09:12)
[2023-01-19] MEDS: levETIRAcetam 500 MG/5 ML ORAL SOLUTION (UNIT-DOSE CUPS) PO SCH ×2 (09:13→21:11)
[2023-01-19] MEDS: PANTOPRAZOLE 40 MG TABLET PO SCH (09:13)
[2023-01-19] MEDS: lamoTRIgine 25 MG TABLET PO SCH ×2 (09:14→21:12)
[2023-01-19] MEDS: PREGABALIN 75 MG CAPSULE PO SCH ×2 (09:14→21:12)
[2023-01-19 20:20] VITALS: BMI 22.4
[2023-01-19] MEDS: ATORVASTATIN CA 40 MG TABLET (FP) PO SCH (21:11)
[2023-01-19] MEDS: INSULIN (LEVEMIR) 100 UNITS/ML UNITS SQ SCH (21:12)
[2023-01-20] MEDS: metFORMIN HCL 500 MG TABLET (FP) PO SCH (06:07)
[2023-01-20] MEDS: INSULIN SLIDING SCALE (NOVOLOG) 1 VIAL SQ SCH ×2 (06:08→11:58)
[2023-01-20] MEDS: ACETAMINOPHEN 325 MG TABLET (FP) PO PRN (06:45)
[2023-01-20 09:24] VITALS: BP 143/56; PULSE 77; RESP 16; TEMP 98.2
[2023-01-20] MEDS: levETIRAcetam 500 MG/5 ML ORAL SOLUTION (UNIT-DOSE CUPS) PO SCH (09:24)
[2023-01-20] MEDS: lamoTRIgine 25 MG TABLET PO SCH (09:25)
[2023-01-20] MEDS: PREGABALIN 75 MG CAPSULE PO SCH (09:25)
[2023-01-20] MEDS: HEPARIN NA (PORCINE) 5,000 UNITS/ML 1ML VIAL SQ SCH (09:26)
[2023-01-20] MEDS: PANTOPRAZOLE 40 MG TABLET PO SCH (09:26)
[2023-01-20] MEDS: POLYETHYLENE GLYCOL (HEALTHYLAX) 3350 17 GM PACKET PO SCH (09:26)
== END 2023-01-20 14:33 | disposition home or self-care (01) | DRG 101 ==
LOC: JER 12:50 → JERBED 16:06 → J4W 19:13 → J2W 01-10 15:34 → J5S 01-16 16:09 → J2W 01-16 18:34 → J4W 01-17 13:54
PROVIDERS: ADMIT Internal Medicine; ATTEND Internal Medicine
DX: G40.909 Epilepsy, unspecified, not intractable, without status epilepticus (principal); N39.0 Urinary tract infection, site not specified; R29.6 Repeated falls; E11.9 Type 2 diabetes mellitus without complications; E78.5 Hyperlipidemia, unspecified; R55 Syncope and collapse
CPT/HCPCS: 0241U-QW; 36415; 70450-TC; 70496-TC; 70498-TC; 70551-TC; 71045-TC-FY; 80053; 80177; 81003; 82962; 83036; 83605; 83735; 84100; 84146; 84439; 84443; 84484; 85025; 85027; 85610; 85730; 87086; 87186; 93005; 93010; 97116-GP; 97162-GP; 99285-25; J1644

== ENCOUNTER 2023-12-05 16:16 | Observation (INO) | payer OTHER ==
[2023-12-05] MEDS: SODIUM CHLORIDE 0.9% 500 ML INFUS.BAG IV ONE ×2 (17:45→19:45)
[2023-12-05 17:59] LABS: BASO % 0.5 % (0-2.0); EOS % 1.4 % (0-4.5); HEMATOCRIT 39.3 % (32.4-45.2); HEMOGLOBIN 13.1 GM/dL (10.7-15.3); LYMPH % 16.3 % (8-40); MCH 29.7 pg (25.7-33.7); MCHC 33.3 g/dl (32.0-36.0); MEAN CELL VOLUME 89.4 fl (80-96); MEAN PLT VOLUME 8.9 fl (7.5-11.1); MONO % 11.2 % (3.8-10.2); NEUT % 70.6 % (42.8-82.8); PLATELET COUNT 214 10^3/uL (134-434); RDW 13.7 % (11.6-15.6); WHITE BLOOD COUNT 6.7 K/mm3 (4.0-10.0)
[2023-12-05 17:59] LABS: POTASSIUM 4.4 mmol/L (3.5-5.1)
[2023-12-05 18:03] LABS: ALBUMIN 3.4 g/dl (3.4-5.0); BLOOD UREA NITROGEN 29.4 mg/dL (7-18); CALCIUM 9.6 mg/dL (8.5-10.1); MAGNESIUM 2.7 mg/dL (1.8-2.4)
[2023-12-05 18:06] LABS: CREATININE 1.4 mg/dL (0.55-1.3)
[2023-12-05 18:07] LABS: BILIRUBIN,TOTAL 0.2 mg/dL (0.2-1); TOT PROT 7.3 g/dl (6.4-8.2)
[2023-12-05 18:07] LABS: INR 1.13 (0.83-1.09); PROTHROMBIN TIME (PATIENT) 13.1 SEC (9.7-13.0)
[2023-12-05 18:09] LABS: ACTIVATED PTT 35.8 SECONDS (25.2-36.5)
[2023-12-05 18:29] LABS: CHLORIDE 107 mmol/L (98-107); SODIUM 143 mmol/L (136-145)
[2023-12-05 18:31] LABS: CALCIUM 9.6 mg/dL (8.5-10.1)
[2023-12-05 18:33] LABS: ALBUMIN 3.7 g/dl (3.4-5.0); ANION GAP 7 mmol/L (4-13); BLOOD UREA NITROGEN 28.9 mg/dL (7-18); CO2 29 mmol/L (21-32); GLUCOSE,RANDOM 127 mg/dL (74-106)
[2023-12-05 18:35] LABS: CREATININE 1.4 mg/dL (0.55-1.3); SGOT/AST 39 U/L (15-37); SGPT/ALT 56 U/L (13-61)
[2023-12-05 18:37] LABS: BILIRUBIN,TOTAL 0.3 mg/dL (0.2-1); TOT PROT 7.8 g/dl (6.4-8.2)
[2023-12-05 18:38] LABS: ALK PHOS 138 U/L (45-117)
[2023-12-05 20:06] LABS: URINE APPEARANCE CLEAR; URINE BILIRUBIN NEGATIVE (NEGATIVE); URINE COLOR YELLOW; URINE GLUCOSE (UA) 3+ (NEGATIVE); URINE KETONE NEGATIVE (NEGATIVE); URINE LEUK ESTERASE NEGATIVE (NEGATIVE); URINE NITRITE NEGATIVE (NEGATIVE); URINE PROTEIN NEGATIVE (NEGATIVE); URINE UROBILINOGEN 0.2 mg/dL (0.2-1.0)
[2023-12-06 01:24] VITALS: BMI 24.4
[2023-12-06] MEDS: INSULIN ASPART SLIDING SCALE (NOVOLOG) 1 VIAL SQ SCH (06:24)
[2023-12-06 08:06] LABS: BASO % 0.7 % (0-2.0); EOS % 1.8 % (0-4.5); HEMATOCRIT 34.1 % (32.4-45.2); HEMOGLOBIN 11.1 GM/dL (10.7-15.3); LYMPH % 21.8 % (8-40); MCH 29.5 pg (25.7-33.7); MCHC 32.5 g/dl (32.0-36.0); MEAN CELL VOLUME 90.8 fl (80-96); MONO % 13.5 % (3.8-10.2); NEUT % 62.2 % (42.8-82.8); PLATELET COUNT 184 10^3/uL (134-434); RBC 3.76 M/mm3 (3.60-5.2); RDW 13.6 % (11.6-15.6); WHITE BLOOD COUNT 5.1 K/mm3 (4.0-10.0)
[2023-12-06 08:20] LABS: POTASSIUM 3.8 mmol/L (3.5-5.1)
[2023-12-06 08:23] LABS: CALCIUM 8.3 mg/dL (8.5-10.1)
[2023-12-06 08:24] LABS: BLOOD UREA NITROGEN 17.4 mg/dL (7-18)
[2023-12-06 08:27] LABS: CREATININE 0.9 mg/dL (0.55-1.3)
[2023-12-06] MEDS: PREGABALIN 75 MG CAPSULE PO SCH (10:23)
[2023-12-06] MEDS: EZETIMIBE 10 MG TABLET (FP) PO SCH (10:23)
[2023-12-06] MEDS: AMITRIPTYLINE HCL 25 MG TABLET PO SCH (13:58)
[2023-12-06] MEDS: AMITRIPTYLINE HCL 50 MG TABLET PO SCH (13:59)
[2023-12-06] MEDS: ACETAMINOPHEN 325 MG TABLET (FP) PO PRN (14:03)
[2023-12-07] MEDS ORDERED: IOHEXOL (OMNIPAQUE PO) 12 MG/ML - 500 ML BOTTLE PO ONE (12:13)
[2023-12-07] MEDS: SODIUM CHLORIDE 250 ML IV STA (15:56)
[2023-12-07] MEDS: levETIRAcetam 500 MG/5 ML INJECTION VIAL IVPB ONE (16:36)
[2023-12-08] MEDS: POLYETHYLENE GLYCOL (HEALTHYLAX) 3350 17 GM PACKET PO SCH (09:59)
[2023-12-08] MEDS: levETIRAcetam 500 MG TABLET (FP) PO SCH (09:59)
[2023-12-08] MEDS: BISACODYL 10 MG SUPP.RECT PR ONE (14:54)
[2023-12-08] MEDS: DIVALPROEX SODIUM 250 MG TABLET E.C. PO SCH (22:13)
[2023-12-08] MEDS: PRAMIPEXOLE DIHYDROCHLORIDE 0.25 MG TABLET PO SCH (22:13)
[2023-12-09] MEDS: PRAMIPEXOLE DIHYDROCHLORIDE 0.125 MG TABLET PO SCH (10:17)
[2023-12-09] MEDS: BACITRACIN ZINC 15 GM TUBE TOPICAL OINTMENT TP SCH (22:43)
[2023-12-09] MEDS: BISACODYL 10 MG SUPP.RECT PR ONE (23:11)
[2023-12-10 10:24] LABS: POTASSIUM 4.7 mmol/L (3.5-5.1)
[2023-12-10 10:30] LABS: BLOOD UREA NITROGEN 20.6 mg/dL (7-18)
[2023-12-10 10:31] LABS: BILIRUBIN,TOTAL 0.2 mg/dL (0.2-1); TOT PROT 6.2 g/dl (6.4-8.2)
[2023-12-10 10:39] LABS: CALCIUM 9.4 mg/dL (8.5-10.1)
[2023-12-10 10:42] LABS: ALBUMIN 2.9 g/dl (3.4-5.0)
[2023-12-10] MEDS: BISACODYL 5 MG TABLET.DR (FP) PO ONE (11:59)
[2023-12-10] MEDS: POLYETHYLENE GLYCOL (HEALTHYLAX) 3350 17 GM PACKET PO SCH (11:59)
[2023-12-10] MEDS: SENNOSIDES 8.6MG TABLET (FP) PO SCH (21:47)
[2023-12-11] MEDS: BISACODYL 5 MG TABLET.DR (FP) PO ONE (15:59)
[2023-12-11] MEDS: POLYETHYLENE GLYCOL 3350 255 GM BTL PO ONE (18:00)
[2023-12-11] MEDS: DOCUSATE SODIUM 100 MG CAPSULE (FP) PO SCH (21:45)
[2023-12-13 10:50] VITALS: BP 127/63; PULSE 82; RESP 18; TEMP 98.2
[2023-12-13] MEDS ORDERED: INSULIN (NOVOLOG) ASPART 100 UNITS/ML 10ML VIAL ONE (12:05)
[2023-12-13] MEDS ORDERED: PREGABALIN 75 MG CAPSULE PO SCH (12:15)
== END 2023-12-13 12:47 ==
LOC: JER 16:16 → JERBED 21:27 → J8W 22:44
PROVIDERS: ADMIT Internal Medicine; ATTEND Internal Medicine
PROC: 0T9B70Z Drainage of Bladder with Drainage Device, Via Natural or Artificial Opening (ICD-10-PCS; principal; 2023-12-05)
PROC: 3E013VG Introduction of Insulin into Subcutaneous Tissue, Percutaneous Approach (ICD-10-PCS; 2023-12-05)
PROC: 3E033GC Introduction of Other Therapeutic Substance into Peripheral Vein, Percutaneous Approach (ICD-10-PCS; 2023-12-05)
PROC: 3E0337Z Introduction of Electrolytic and Water Balance Substance into Peripheral Vein, Percutaneous Approach (ICD-10-PCS; 2023-12-05)
DX: R53.1 Weakness (principal); R29.6 Repeated falls; J45.909 Unspecified asthma, uncomplicated; E78.5 Hyperlipidemia, unspecified; E11.9 Type 2 diabetes mellitus without complications; N17.9 Acute kidney failure, unspecified; E86.0 Dehydration; K59.00 Constipation, unspecified; E03.9 Hypothyroidism, unspecified; F32.A Depression, unspecified; S09.90XA Unspecified injury of head, initial encounter; R53.83 Other fatigue; E07.9 Disorder of thyroid, unspecified; G40.909 Epilepsy, unspecified, not intractable, without status epilepticus; M48.00 Spinal stenosis, site unspecified; R63.30 Feeding difficulties, unspecified; R14.0 Abdominal distension (gaseous); I10 Essential (primary) hypertension; Z98.890 Other specified postprocedural states; R22.0 Localized swelling, mass and lump, head; W18.39XA Other fall on same level, initial encounter; Y93.89 Activity, other specified; Y92.009 Unspecified place in unspecified non-institutional (private) residence as the place of occurrence of the external cause; Z99.89 Dependence on other enabling machines and devices; H02.402 Unspecified ptosis of left eyelid; Z91.018 Allergy to other foods; Z72.0 Tobacco use; Z88.5 Allergy status to narcotic agent; Z79.4 Long term (current) use of insulin
CPT/HCPCS: 0241U-QW; 36415; 70450-TC; 71045-TC-FY; 72125-TC; 72170-TC-FY; 74018-TC-FY; 74177-TC; 80048; 80053; 80307; 81003; 82140; 82962; 83036; 83735; 84443; 84484; 85025; 85610; 85730; 86850; 86900; 86901; 87086; 93005; 93010; 96372; 96374; 97116-GP; 97162-GP; 99285-25; G0378; Q9967

== ENCOUNTER 2024-01-24 09:52 | Inpatient (IN) | payer OTHER ==
[2024-01-24 10:36] LABS: BASO % 0.8 % (0-2.0); EOS % 3.4 % (0-4.5); HEMATOCRIT 40.6 % (32.4-45.2); HEMOGLOBIN 12.9 GM/dL (10.7-15.3); LYMPH % 25.8 % (8-40); MCH 28.7 pg (25.7-33.7); MCHC 31.8 g/dl (32.0-36.0); MEAN CELL VOLUME 90.5 fl (80-96); MEAN PLT VOLUME 9.8 fl (7.5-11.1); MONO % 13.6 % (3.8-10.2); NEUT % 56.4 % (42.8-82.8); PLATELET COUNT 153 10^3/uL (134-434); RBC 4.48 M/mm3 (3.60-5.2); RDW 14.2 % (11.6-15.6); WHITE BLOOD COUNT 4.9 K/mm3 (4.0-10.0)
[2024-01-24 10:45] LABS: INR 0.96 (0.83-1.09); PROTHROMBIN TIME (PATIENT) 10.9 SEC (9.7-13.0)
[2024-01-24 10:47] LABS: ACTIVATED PTT 36.7 SECONDS (25.2-36.5)
[2024-01-24 10:54] LABS: POTASSIUM 4.9 mmol/L (3.5-5.1)
[2024-01-24 10:56] LABS: CALCIUM 9.8 mg/dL (8.5-10.1)
[2024-01-24 10:57] LABS: ALBUMIN 3.8 g/dl (3.4-5.0); BLOOD UREA NITROGEN 27.4 mg/dL (7-18)
[2024-01-24 11:00] LABS: CREATININE 1.2 mg/dL (0.55-1.3)
[2024-01-24 11:02] LABS: BILIRUBIN,TOTAL 0.2 mg/dL (0.2-1); TOT PROT 7.4 g/dl (6.4-8.2)
[2024-01-24] MEDS: SODIUM CHLORIDE 0.9% 1000 ML INFUS.BAG IV ONE (11:39)
[2024-01-24 11:44] LABS: EPI CELLS 2 /uL (0-25.1); HYALINE CASTS 0 /uL (0-3.1); URINE APPEARANCE CLEAR; URINE BACTERIA 4408 /uL (0-1359); URINE BILIRUBIN NEGATIVE (NEGATIVE); URINE COLOR YELLOW; URINE GLUCOSE (UA) 3+ (NEGATIVE); URINE KETONE NEGATIVE (NEGATIVE); URINE LEUK ESTERASE 2+ (NEGATIVE); URINE NITRITE POSITIVE (NEGATIVE); URINE PROTEIN NEGATIVE (NEGATIVE); URINE RBC 5 /uL (0-23.9); URINE UROBILINOGEN 0.2 mg/dL (0.2-1.0); URINE WBC 178 /uL (0-25.8)
[2024-01-24] MEDS: PIPERACILLIN/TAZOBACTAM 4.5 GM VIAL IVPB ONE (12:10)
[2024-01-24] MEDS ORDERED: PIPERACILLIN/TAZOB 4.5 GM 4.5 GM/100 ML BAG IVPB ONE (12:13)
[2024-01-24] MEDS ORDERED: VANCOMYCIN 1 GRAM (PRE-DOCKED) 1,000 MG/250 ML BAG IVPB ONE (12:13)
[2024-01-24] MEDS ORDERED: RAPID SEQUENCE INTUBATION KIT NR ONE (12:14)
[2024-01-24 12:25] LABS: YEAST NONE SEEN (NEGATIVE)
[2024-01-24] MEDS: CEFTRIAXONE 1 GM in DEXTROSE 5%-WATER - 100 ML IVPB ONE (12:37)
[2024-01-24] MEDS: AZITHROMYCIN IVPB 500 MG in DEXTROSE 5%-WATER - 250 ML IVPB ONE (12:37)
[2024-01-24] MEDS: VANCOMYCIN 1,000 MG in DEXTROSE 5%-WATER - 250 ML IVPB ONE (12:43)
[2024-01-24] MEDS ORDERED: ROCURONIUM BROMIDE 50 MG/5 ML SYRINGE ONE (13:15)
[2024-01-24 13:18] LABS: ARTERIAL BLD GAS O2 SATURATION 90.8 % (95-98); ARTERIAL BLOOD GAS BASE EXCESS -0.3 mmol/L (-2-2); ARTERIAL BLOOD GAS PO2 66.1 mmHg (80-100); ARTERIAL BLOOD GAS pH 7.304 (7.350-7.450)
[2024-01-24 13:19] LABS: ALLENS TEST POSITIVE
[2024-01-24] MEDS ORDERED: PROPOFOL 1,000,000 MCG/100 ML VIAL ONE (13:26)
[2024-01-24] MEDS ORDERED: ENOXAPARIN NA (PORCINE) 40 MG/0.4 ML DISP.SYRIN SQ ONE (13:58)
[2024-01-24] MEDS: ENOXAPARIN NA (PORCINE) 40 MG/0.4 ML DISP.SYRIN SQ SCH (14:02)
[2024-01-24] MEDS: PROPOFOL 1,000,000 MCG/100 ML VIAL IVPB SCH (14:07)
[2024-01-24 14:57] LABS: ARTERIAL BLD GAS O2 SATURATION 99.5 % (95-98); ARTERIAL BLOOD GAS BASE EXCESS 3.5 mmol/L (-2-2); ARTERIAL BLOOD GAS PO2 223.9 mmHg (80-100); ARTERIAL BLOOD GAS pH 7.478 (7.350-7.450)
[2024-01-24 14:59] LABS: ALLENS TEST POSITIVE
[2024-01-24 15:00] LABS: VENT MODE VOL/AC; VENT RATE 14
[2024-01-24] MEDS: LABETALOL HCL 5 MG/1 ML (100MG/20 ML VIAL) IVPUSH PRN (15:40)
[2024-01-24] MEDS: CEFTRIAXONE 1 GM in DEXTROSE 5%-WATER - 50 ML IVPB SCH (18:28)
[2024-01-24] MEDS: CHLORHEXIDINE GLUCONATE 4% CLEANSER FOR DECOLONIZATION TP SCH (21:20)
[2024-01-24] MEDS: levETIRAcetam 500 MG/5 ML INJECTION VIAL IVPB SCH (21:20)
[2024-01-24] MEDS: MUPIROCIN 2% TOPICAL OINTMENT FOR DECOLONIZATION NS SCH (21:22)
[2024-01-24] MEDS ORDERED: PRAMIPEXOLE DIHYDROCHLORIDE 0.25 MG TABLET PO SCH (22:00)
[2024-01-24] MEDS ORDERED: MAGNESIUM HYDROX 2400MG/30ML ORAL SUSPENSION 30 ML CUP PO SCH (22:00)
[2024-01-24] MEDS ORDERED: POLYETHYLENE GLYCOL (HEALTHYLAX) 3350 17 GM PACKET PO SCH (22:00)
[2024-01-25] MEDS: METOPROLOL TARTRATE 5 MG/5 ML VIAL IVPUSH ONE (02:37)
[2024-01-25] MEDS: FENTANYL NS IVPB 500 MCG/100 ML BAG IVPB SCH (05:45)
[2024-01-25 06:57] LABS: BASO % 0.4 % (0-2.0); EOS % 1.4 % (0-4.5); HEMATOCRIT 38.3 % (32.4-45.2); HEMOGLOBIN 12.3 GM/dL (10.7-15.3); LYMPH % 13.8 % (8-40); MCH 28.9 pg (25.7-33.7); MCHC 32.1 g/dl (32.0-36.0); MEAN CELL VOLUME 89.9 fl (80-96); MEAN PLT VOLUME 9.8 fl (7.5-11.1); MONO % 17.9 % (3.8-10.2); NEUT % 66.5 % (42.8-82.8); PLATELET COUNT 152 10^3/uL (134-434); RBC 4.26 M/mm3 (3.60-5.2); RDW 13.8 % (11.6-15.6); WHITE BLOOD COUNT 11.6 K/mm3 (4.0-10.0)
[2024-01-25 07:10] LABS: POTASSIUM 4.4 mmol/L (3.5-5.1)
[2024-01-25 07:13] LABS: ALBUMIN 3.4 g/dl (3.4-5.0); CALCIUM 8.7 mg/dL (8.5-10.1)
[2024-01-25 07:14] LABS: BLOOD UREA NITROGEN 21.8 mg/dL (7-18); MAGNESIUM 2.3 mg/dL (1.8-2.4)
[2024-01-25 07:16] LABS: PHOSPHOROUS 3.4 mg/dL (2.5-4.9)
[2024-01-25 07:17] LABS: CREATININE 0.9 mg/dL (0.55-1.3)
[2024-01-25 07:18] LABS: BILIRUBIN,TOTAL 0.3 mg/dL (0.2-1); TOT PROT 7.1 g/dl (6.4-8.2)
[2024-01-25] MEDS ORDERED: PRAMIPEXOLE DIHYDROCHLORIDE 0.125 MG TABLET PO SCH (08:00)
[2024-01-25] MEDS ORDERED: SOLIFENACIN SUCCINATE 5 MG TAB PO SCH (10:00)
[2024-01-25] MEDS: DEXMEDETOMIDINE PREMIX 400 MCG/100 ML BAG IVPB SCH (11:30)
[2024-01-25] MEDS: VALPROATE SODIUM INJECTION 500 MG in SODIUM CHLORIDE 100 ML IVPB SCH (12:40)
[2024-01-25] MEDS: MIDAZOLAM HCL 2 MG/2 ML SINGLE DOSE VIAL IVPUSH ONE (15:29)
[2024-01-25] MEDS: LACTATED RINGERS SOLUTION 1,000 ML/1,000 ML INFUS.BAG IV SCH (17:36)
[2024-01-25] MEDS: VALPROATE SODIUM 500 MG/5 ML VIAL IVPB SCH (17:38)
[2024-01-25] MEDS: THIAMINE HCL 200 MG/2 ML VIAL IVPB SCH (21:08)
[2024-01-25] MEDS ORDERED: LABETALOL HCL 5 MG/1 ML (100MG/20 ML VIAL) ONE (23:05)
[2024-01-26 08:14] LABS: BASO % 0.7 % (0-2.0); EOS % 2.7 % (0-4.5); HEMATOCRIT 37.4 % (32.4-45.2); HEMOGLOBIN 12.4 GM/dL (10.7-15.3); MCH 29.3 pg (25.7-33.7); MCHC 33.2 g/dl (32.0-36.0); MEAN CELL VOLUME 88.3 fl (80-96); MONO % 12.3 % (3.8-10.2); NEUT % 62.3 % (42.8-82.8); PLATELET COUNT 140 10^3/uL (134-434); RBC 4.24 M/mm3 (3.60-5.2); RDW 14.1 % (11.6-15.6); WHITE BLOOD COUNT 7.2 K/mm3 (4.0-10.0)
[2024-01-26 08:33] LABS: POTASSIUM 4.6 mmol/L (3.5-5.1)
[2024-01-26 08:48] LABS: ALBUMIN 3.1 g/dl (3.4-5.0); CALCIUM 8.5 mg/dL (8.5-10.1); MAGNESIUM 2.1 mg/dL (1.8-2.4)
[2024-01-26 08:51] LABS: CREATININE 0.9 mg/dL (0.55-1.3); PHOSPHOROUS 3.3 mg/dL (2.5-4.9)
[2024-01-26 08:52] LABS: BILIRUBIN,TOTAL 0.4 mg/dL (0.2-1); TOT PROT 6.9 g/dl (6.4-8.2)
[2024-01-26] MEDS: FUROSEMIDE 40 MG/4 ML INJECTABLE VIAL IVPUSH ONE (09:55)
[2024-01-26] MEDS: ACETAMINOPHEN 325 MG TABLET (FP) PO PRN (16:49)
[2024-01-26] MEDS: MELATONIN 5 MG TABLETS PO PRN (22:31)
[2024-01-27] MEDS ORDERED: VANCOMYCIN 1,000 MG in DEXTROSE 5%-WATER - 250 ML IVPB SCH (06:45)
[2024-01-27 07:32] LABS: HEMATOCRIT 35.1 % (32.4-45.2); HEMOGLOBIN 11.7 GM/dL (10.7-15.3); MCH 29.5 pg (25.7-33.7); MCHC 33.4 g/dl (32.0-36.0); MEAN CELL VOLUME 88.3 fl (80-96); PLATELET COUNT 156 10^3/uL (134-434); RBC 3.98 M/mm3 (3.60-5.2); RDW 14.1 % (11.6-15.6)
[2024-01-27 07:41] LABS: POTASSIUM 3.4 mmol/L (3.5-5.1)
[2024-01-27 07:54] LABS: CALCIUM 9.1 mg/dL (8.5-10.1)
[2024-01-27 07:55] LABS: ALBUMIN 3.2 g/dl (3.4-5.0); BLOOD UREA NITROGEN 20.7 mg/dL (7-18); MAGNESIUM 2.2 mg/dL (1.8-2.4)
[2024-01-27 07:58] LABS: CREATININE 0.8 mg/dL (0.55-1.3); PHOSPHOROUS 3.8 mg/dL (2.5-4.9)
[2024-01-27 07:59] LABS: BILIRUBIN,TOTAL 0.5 mg/dL (0.2-1); TOT PROT 6.6 g/dl (6.4-8.2)
[2024-01-27] MEDS: KETOROLAC TROMETHAMINE 10 MG TABLET PO ONE (08:50)
[2024-01-27] MEDS: diphenhydrAMINE HCL 25 MG CAPSULE (FP) PO ONE (08:50)
[2024-01-27] MEDS: METOCLOPRAMIDE HCL 10 MG TABLET (FP) PO ONE (08:50)
[2024-01-27] MEDS: MAGNESIUM SULF 50% (8.12 MEQ/2 ML-1 GM VIAL) IVPB ONE (09:47)
[2024-01-27] MEDS: KCL 10 MEQ IVPB 10 MEQ/100 ML INFUS.BAG IVPB SCH (11:11)
[2024-01-27] MEDS: VANCOMYCIN/WATER FOR INJ (PEG) 1,000 MG/200 ML BAG IVPB SCH (12:30)
[2024-01-27 12:31] VITALS: BMI 25.3
[2024-01-27] MEDS: POTASSIUM CHLORIDE TABS 20 MEQ TABLET.ER (FP) PO SCH (12:33)
[2024-01-27] MEDS: CEFTRIAXONE 1 GM in DEXTROSE 5%-WATER - 50 ML IVPB SCH (13:05)
[2024-01-27] MEDS: levETIRAcetam 500 MG/5 ML INJECTION VIAL IVPB SCH (22:03)
[2024-01-27] MEDS: MELATONIN 5 MG TABLETS PO PRN (22:06)
[2024-01-27] MEDS: ACETAMINOPHEN 325 MG TABLET (FP) PO PRN (22:07)
[2024-01-28] MEDS: VALPROATE SODIUM INJECTION 500 MG in SODIUM CHLORIDE 100 ML IVPB SCH (01:42)
[2024-01-28 07:34] LABS: BASO % 1.2 % (0-2.0); EOS % 4.6 % (0-4.5); HEMATOCRIT 37.5 % (32.4-45.2); HEMOGLOBIN 12.2 GM/dL (10.7-15.3); LYMPH % 17.9 % (8-40); MCH 28.7 pg (25.7-33.7); MCHC 32.6 g/dl (32.0-36.0); MEAN CELL VOLUME 88.2 fl (80-96); MEAN PLT VOLUME 9.1 fl (7.5-11.1); NEUT % 61.3 % (42.8-82.8); PLATELET COUNT 148 10^3/uL (134-434); RBC 4.25 M/mm3 (3.60-5.2); RDW 13.7 % (11.6-15.6); WHITE BLOOD COUNT 6.2 K/mm3 (4.0-10.0)
[2024-01-28 07:55] LABS: POTASSIUM 3.6 mmol/L (3.5-5.1)
[2024-01-28 08:06] LABS: BLOOD UREA NITROGEN 18.5 mg/dL (7-18); CALCIUM 8.7 mg/dL (8.5-10.1); MAGNESIUM 2.2 mg/dL (1.8-2.4)
[2024-01-28 08:07] LABS: CREATININE 0.7 mg/dL (0.55-1.3)
[2024-01-28 08:09] LABS: BILIRUBIN,TOTAL 0.4 mg/dL (0.2-1); TOT PROT 6.5 g/dl (6.4-8.2)
[2024-01-28] MEDS: ENOXAPARIN NA (PORCINE) 40 MG/0.4 ML DISP.SYRIN SQ SCH (10:34)
[2024-01-28] MEDS: BENZOCAINE/MENTH/CETYLPYRD CL 1 EACH LOZENGE MM PRN (21:32)
[2024-01-30 13:12] VITALS: BP 159/58; PULSE 64; RESP 16; TEMP 99
== END 2024-01-30 12:32 | DRG 100 ==
LOC: JER 09:52 → JERBED 13:41 → JICU 15:13 → J7W 01-27 20:55
PROVIDERS: ADMIT Internal Medicine; ATTEND Internal Medicine
PROC: 0BH17EZ Insertion of Endotracheal Airway into Trachea, Via Natural or Artificial Opening (ICD-10-PCS; principal; 2024-01-24)
PROC: 5A1945Z Respiratory Ventilation, 24-96 Consecutive Hours (ICD-10-PCS; 2024-01-24)
DX: G40.909 Epilepsy, unspecified, not intractable, without status epilepticus (principal); G93.41 Metabolic encephalopathy; J18.9 Pneumonia, unspecified organism; J96.02 Acute respiratory failure with hypercapnia; J96.01 Acute respiratory failure with hypoxia; G82.20 Paraplegia, unspecified; I67.4 Hypertensive encephalopathy; I10 Essential (primary) hypertension; E11.9 Type 2 diabetes mellitus without complications; N31.9 Neuromuscular dysfunction of bladder, unspecified; R41.82 Altered mental status, unspecified; F32.A Depression, unspecified; E03.9 Hypothyroidism, unspecified; R29.6 Repeated falls; M48.02 Spinal stenosis, cervical region; R33.8 Other retention of urine; E86.0 Dehydration; K59.00 Constipation, unspecified
CPT/HCPCS: 0241U-QW; 36415; 36600; 70450-TC; 71045-TC-FY; 74018-TC-FY; 80053; 80164; 80177; 81003; 82140; 82607; 82746; 82803; 82962; 83605; 83735; 84100; 84439; 84443; 84484; 85025; 85027; 85610; 85730; 87040; 87070; 87077; 87086; 87186; 87205; 93005; 93010; 94002; 99285-25

== ENCOUNTER 2024-04-26 23:43 | Emergency (ER) | payer OTHER ==
[2024-04-27 00:08] VITALS: TEMP 97.7; BMI 24.1
[2024-04-27] MEDS ORDERED: ACETAMINOPHEN 500 MG TABLET (FP) ONE (00:58)
[2024-04-27] MEDS: ACETAMINOPHEN 500 MG TABLET (FP) PO ONE (01:10)
[2024-04-27] MEDS ORDERED: SULFAMETHOXAZOLE/TRIMETHOPRIM 800MG/160MG D.S. TABLET ONE (01:43)
[2024-04-27] MEDS ORDERED: FLUCONAZOLE 150 MG TABLET PO ONE (01:43)
[2024-04-27] MEDS: FLUCONAZOLE 50 MG TABLET PO ONE (01:51)
[2024-04-27] MEDS: SULFAMETHOXAZOLE/TRIMETHOPRIM 800MG/160MG D.S. TABLET PO ONE (01:51)
[2024-04-27 01:56] LABS: EPI CELLS 7 /uL (0-25.1); HYALINE CASTS 1 /uL (0-3.1); URINE APPEARANCE CLEAR; URINE BACTERIA 507 /uL (0-1359); URINE BILIRUBIN NEGATIVE (NEGATIVE); URINE COLOR YELLOW; URINE GLUCOSE (UA) TRACE (NEGATIVE); URINE KETONE NEGATIVE (NEGATIVE); URINE LEUK ESTERASE 2+ (NEGATIVE); URINE NITRITE NEGATIVE (NEGATIVE); URINE PROTEIN TRACE (NEGATIVE); URINE RBC 104 /uL (0-23.9); URINE WBC 137 /uL (0-25.8)
[2024-04-27 04:23] VITALS: BP 120/61; PULSE 56; RESP 14
== END 2024-04-27 05:13 | disposition home or self-care (01) ==
LOC: JER 23:43
PROC: 0T2BX0Z Change Drainage Device in Bladder, External Approach (ICD-10-PCS; principal; 2024-04-26)
DX: T83.511A Infection and inflammatory reaction due to indwelling urethral catheter, initial encounter (principal); N30.00 Acute cystitis without hematuria; R10.30 Lower abdominal pain, unspecified
CPT/HCPCS: 81003; 87086; 99283-25

== ENCOUNTER 2024-06-01 15:11 | Inpatient (IN) | payer OTHER ==
[2024-06-01 16:13] LABS: BASO % 0.4 % (0-2.0); EOS % 1.2 % (0-4.5); HEMATOCRIT 39.6 % (32.4-45.2); HEMOGLOBIN 13.1 GM/dL (10.7-15.3); LYMPH % 11.9 % (8-40); MCH 28.3 pg (25.7-33.7); MCHC 33.2 g/dl (32.0-36.0); MEAN CELL VOLUME 85.3 fl (80-96); MEAN PLT VOLUME 8.8 fl (7.5-11.1); NEUT % 76.5 % (42.8-82.8); PLATELET COUNT 187 10^3/uL (134-434); RBC 4.64 M/mm3 (3.60-5.2); WHITE BLOOD COUNT 6.8 K/mm3 (4.0-10.0)
[2024-06-01 16:22] LABS: EPI CELLS 16 /uL (0-25.1); HYALINE CASTS 2 /uL (0-3.1); URINE APPEARANCE CLEAR; URINE BACTERIA 275 /uL (0-1359); URINE BILIRUBIN NEGATIVE (NEGATIVE); URINE COLOR YELLOW; URINE GLUCOSE (UA) NEGATIVE (NEGATIVE); URINE KETONE NEGATIVE (NEGATIVE); URINE LEUK ESTERASE 2+ (NEGATIVE); URINE NITRITE NEGATIVE (NEGATIVE); URINE PROTEIN 1+ (NEGATIVE); URINE RBC 385 /uL (0-23.9); URINE UROBILINOGEN 0.2 mg/dL (0.2-1.0); URINE WBC 226 /uL (0-25.8)
[2024-06-01 16:23] LABS: INR 1.06 (0.83-1.09); PROTHROMBIN TIME (PATIENT) 12.2 SEC (9.7-13.0)
[2024-06-01 16:24] LABS: VENOUS BASE EXCESS -2.1 mmol/L (-2-2); VENOUS O2 SATURATION 65.8 % (70-80); VENOUS PH 7.324 (7.310-7.410)
[2024-06-01 16:25] LABS: ACTIVATED PTT 31.2 SECONDS (25.2-36.5)
[2024-06-01 16:28] LABS: POTASSIUM 4.2 mmol/L (3.5-5.1)
[2024-06-01 16:30] LABS: ALBUMIN 3.1 g/dl (3.4-5.0); CALCIUM 8.8 mg/dL (8.5-10.1)
[2024-06-01 16:34] LABS: CREATININE 1.9 mg/dL (0.55-1.3); TOT PROT 6.4 g/dl (6.4-8.2)
[2024-06-01 16:36] LABS: BILIRUBIN,TOTAL 0.4 mg/dL (0.2-1)
[2024-06-01] MEDS ORDERED: CEFTRIAXONE 1 GM/50 ML BAG ONE (17:28)
[2024-06-01] MEDS: SODIUM CHLORIDE 1,000 ML IV SCH (17:37)
[2024-06-01] MEDS: CEFTRIAXONE 1,000 MG in DEXTROSE 5%-WATER - 50 ML IVPB ONE (17:40)
[2024-06-01] MEDS ORDERED: ASPIRIN 81 MG CHEWABLE TABLETS ONE (20:22)
[2024-06-01] MEDS: ASPIRIN 81 MG CHEWABLE TABLETS PO ONE (20:35)
[2024-06-01 22:29] LABS: URINE AMPHETAMINES NEGATIVE (NEGATIVE); URINE BARBITURATES NEGATIVE (NEGATIVE)
[2024-06-01 22:31] LABS: COCAINE, UR NEGATIVE (NEGATIVE); METHADONE, UR NEGATIVE (NEGATIVE); OPIATES, URI NEGATIVE (NEGATIVE); PHENCYCLIDINE,URINE NEGATIVE (NEGATIVE); URINE BENZODIAZEPINES NEGATIVE (NEGATIVE)
[2024-06-02] MEDS ORDERED: ACETAMINOPHEN 325 MG TABLET (FP) PO PRN (00:26)
[2024-06-02 05:31] VITALS: BMI 25.0
[2024-06-02 07:46] LABS: BASO % 0.4 % (0-2.0); EOS % 2.3 % (0-4.5); HEMATOCRIT 40.6 % (32.4-45.2); HEMOGLOBIN 13.3 GM/dL (10.7-15.3); LYMPH % 13.6 % (8-40); MCH 28.4 pg (25.7-33.7); MCHC 32.8 g/dl (32.0-36.0); MEAN CELL VOLUME 86.7 fl (80-96); MEAN PLT VOLUME 8.9 fl (7.5-11.1); MONO % 12.3 % (3.8-10.2); NEUT % 71.4 % (42.8-82.8); PLATELET COUNT 170 10^3/uL (134-434); RBC 4.69 M/mm3 (3.60-5.2); RDW 13.8 % (11.6-15.6); WHITE BLOOD COUNT 5.8 K/mm3 (4.0-10.0)
[2024-06-02 08:00] LABS: POTASSIUM 4.1 mmol/L (3.5-5.1)
[2024-06-02 08:06] LABS: CALCIUM 8.7 mg/dL (8.5-10.1)
[2024-06-02 08:09] LABS: ALBUMIN 3.1 g/dl (3.4-5.0); BLOOD UREA NITROGEN 25.3 mg/dL (7-18)
[2024-06-02 08:10] LABS: CREATININE 1.3 mg/dL (0.55-1.3)
[2024-06-02 08:13] LABS: BILIRUBIN,TOTAL 0.3 mg/dL (0.2-1); TOT PROT 6.4 g/dl (6.4-8.2)
[2024-06-02] MEDS: CEFTRIAXONE 1 GM in DEXTROSE 5%-WATER - 50 ML IVPB SCH (12:36)
[2024-06-02] MEDS: levETIRAcetam 500 MG/5 ML ORAL SOLUTION (UNIT-DOSE CUPS) PO SCH (12:36)
[2024-06-02] MEDS: EZETIMIBE 10 MG TABLET (FP) PO SCH (12:38)
[2024-06-02] MEDS: FLUTICASONE/UMECLIDIN/VILANTER(200-62.5-25 TRELEGY ELLIPTA) INAHLER IH SCH (12:52)
[2024-06-02] MEDS: DIVALPROEX SODIUM 250 MG TABLET E.C. PO SCH ×3 (14:24→22:26)
[2024-06-02] MEDS: PRAMIPEXOLE DIHYDROCHLORIDE 0.125 MG TABLET PO SCH (15:24)
[2024-06-02] MEDS: INSULIN ASPART SLIDING SCALE (NOVOLOG) 1 VIAL SQ SCH (16:42)
[2024-06-02] MEDS: SENNOSIDES 8.6MG TABLET (FP) PO PRN (18:33)
[2024-06-02] MEDS: PREGABALIN 75 MG CAPSULE PO SCH (21:18)
[2024-06-02] MEDS: ATORVASTATIN CA 40 MG TABLET (FP) PO SCH (21:18)
[2024-06-02] MEDS: PRAMIPEXOLE DIHYDROCHLORIDE 0.25 MG TABLET PO SCH ×2 (21:18→22:28)
[2024-06-03 09:31] LABS: BASO % 0.4 % (0-2.0); EOS % 3.5 % (0-4.5); HEMATOCRIT 38.9 % (32.4-45.2); HEMOGLOBIN 12.7 GM/dL (10.7-15.3); LYMPH % 30.2 % (8-40); MCH 28.6 pg (25.7-33.7); MCHC 32.6 g/dl (32.0-36.0); MEAN CELL VOLUME 87.7 fl (80-96); MEAN PLT VOLUME 9.2 fl (7.5-11.1); MONO % 12.6 % (3.8-10.2); NEUT % 53.3 % (42.8-82.8); PLATELET COUNT 178 10^3/uL (134-434); RBC 4.44 M/mm3 (3.60-5.2); RDW 13.8 % (11.6-15.6); WHITE BLOOD COUNT 4.8 K/mm3 (4.0-10.0)
[2024-06-03 09:49] LABS: POTASSIUM 4.1 mmol/L (3.5-5.1)
[2024-06-03 10:00] LABS: CALCIUM 8.9 mg/dL (8.5-10.1)
[2024-06-03 10:01] LABS: ALBUMIN 3.1 g/dl (3.4-5.0); BLOOD UREA NITROGEN 17.3 mg/dL (7-18)
[2024-06-03 10:05] LABS: BILIRUBIN,TOTAL 0.4 mg/dL (0.2-1); CREATININE 1.1 mg/dL (0.55-1.3); TOT PROT 6.6 g/dl (6.4-8.2)
[2024-06-03] MEDS ORDERED: VALPROATE SODIUM 500 MG/5 ML VIAL IVPB SCH (10:15)
[2024-06-03] MEDS: PRAMIPEXOLE DIHYDROCHLORIDE 0.25 MG TABLET PO SCH (10:16)
[2024-06-03] MEDS: levETIRAcetam 500 MG/5 ML INJECTION VIAL IVPB ONE (10:25)
[2024-06-03 10:30] LABS: ARTERIAL BLD GAS O2 SATURATION 98.9 % (95-98); ARTERIAL BLOOD GAS BASE EXCESS 1.8 mmol/L (-2-2); ARTERIAL BLOOD GAS PO2 149.6 mmHg (80-100); ARTERIAL BLOOD GAS pH 7.413 (7.350-7.450)
[2024-06-03] MEDS: VALPROATE SODIUM INJECTION 250 MG in SODIUM CHLORIDE 100 ML IVPB SCH (11:26)
[2024-06-03] MEDS: LISINOPRIL 5 MG TABLET PO SCH (16:42)
[2024-06-03] MEDS ORDERED: levETIRAcetam 500 MG TABLET (FP) PO SCH ×2 (22:00)
[2024-06-03] MEDS ORDERED: levETIRAcetam 500 MG/5 ML INJECTION VIAL IVPB SCH (22:00)
[2024-06-04 08:38] LABS: BASO % 0.6 % (0-2.0); EOS % 3.2 % (0-4.5); HEMATOCRIT 37.9 % (32.4-45.2); HEMOGLOBIN 12.3 GM/dL (10.7-15.3); LYMPH % 27.6 % (8-40); MCH 28.5 pg (25.7-33.7); MCHC 32.5 g/dl (32.0-36.0); MEAN CELL VOLUME 87.6 fl (80-96); MONO % 9.8 % (3.8-10.2); NEUT % 58.8 % (42.8-82.8); PLATELET COUNT 183 10^3/uL (134-434); RBC 4.32 M/mm3 (3.60-5.2); RDW 13.8 % (11.6-15.6); WHITE BLOOD COUNT 5.9 K/mm3 (4.0-10.0)
[2024-06-04 08:44] LABS: POTASSIUM 4.4 mmol/L (3.5-5.1)
[2024-06-04 08:46] LABS: BLOOD UREA NITROGEN 18.1 mg/dL (7-18); CALCIUM 8.9 mg/dL (8.5-10.1)
[2024-06-04 08:48] LABS: ALBUMIN 2.8 g/dl (3.4-5.0)
[2024-06-04 08:50] LABS: CREATININE 0.9 mg/dL (0.55-1.3)
[2024-06-04 08:51] LABS: BILIRUBIN,TOTAL 0.3 mg/dL (0.2-1)
[2024-06-04] MEDS: levETIRAcetam 500 MG/5 ML INJECTION VIAL IVPB ONE ×2 (10:13→21:10)
[2024-06-04] MEDS ORDERED: levETIRAcetam 500 MG/5 ML INJECTION VIAL IVPB SCH (22:00)
[2024-06-04] MEDS: VALPROATE SODIUM INJECTION 500 MG in SODIUM CHLORIDE 100 ML IVPB SCH (22:10)
[2024-06-04] MEDS: DIVALPROEX SODIUM 500 MG TABLET E.C. PO SCH (22:19)
[2024-06-04] MEDS: VALPROATE SODIUM 500 MG/5 ML VIAL IVPB SCH (23:27)
[2024-06-05] MEDS: levETIRAcetam 500 MG/5 ML INJECTION VIAL IVPB SCH (03:16)
[2024-06-05 09:08] LABS: BASO % 0.4 % (0-2.0); EOS % 2.4 % (0-4.5); HEMATOCRIT 35.5 % (32.4-45.2); HEMOGLOBIN 11.8 GM/dL (10.7-15.3); LYMPH % 22.5 % (8-40); MCH 28.9 pg (25.7-33.7); MCHC 33.3 g/dl (32.0-36.0); MEAN CELL VOLUME 86.9 fl (80-96); MEAN PLT VOLUME 8.7 fl (7.5-11.1); MONO % 9.1 % (3.8-10.2); NEUT % 65.6 % (42.8-82.8); PLATELET COUNT 166 10^3/uL (134-434); RBC 4.09 M/mm3 (3.60-5.2); RDW 13.9 % (11.6-15.6); WHITE BLOOD COUNT 7.1 K/mm3 (4.0-10.0)
[2024-06-05 09:44] LABS: POTASSIUM 4.6 mmol/L (3.5-5.1)
[2024-06-05 09:48] LABS: CALCIUM 8.6 mg/dL (8.5-10.1)
[2024-06-05 09:49] LABS: ALBUMIN 2.7 g/dl (3.4-5.0); BLOOD UREA NITROGEN 15.7 mg/dL (7-18)
[2024-06-05 09:52] LABS: CREATININE 0.9 mg/dL (0.55-1.3)
[2024-06-05 09:53] LABS: BILIRUBIN,TOTAL 0.3 mg/dL (0.2-1); TOT PROT 5.8 g/dl (6.4-8.2)
[2024-06-05] MEDS: DIVALPROEX NA *ER* EXTEND REL 500 MG TABLET.SA (FP) PO SCH (22:22)
[2024-06-05] MEDS: levETIRAcetam 500 MG TABLET (FP) PO SCH (22:27)
[2024-06-07 03:36] LABS: EPI CELLS >36 /uL (0-25.1); HYALINE CASTS 6 /uL (0-3.1); URINE APPEARANCE CLEAR; URINE BACTERIA 41 /uL (0-1359); URINE BILIRUBIN NEGATIVE (NEGATIVE); URINE COLOR YELLOW; URINE GLUCOSE (UA) NEGATIVE (NEGATIVE); URINE KETONE NEGATIVE (NEGATIVE); URINE LEUK ESTERASE 2+ (NEGATIVE); URINE NITRITE NEGATIVE (NEGATIVE); URINE PROTEIN 1+ (NEGATIVE); URINE RBC 33 /uL (0-23.9); URINE WBC 123 /uL (0-25.8)
[2024-06-07 08:37] LABS: BASO % 0.4 % (0-2.0); EOS % 3.3 % (0-4.5); HEMATOCRIT 35.7 % (32.4-45.2); HEMOGLOBIN 12.1 GM/dL (10.7-15.3); LYMPH % 27.7 % (8-40); MCH 28.8 pg (25.7-33.7); MCHC 33.7 g/dl (32.0-36.0); MEAN CELL VOLUME 85.3 fl (80-96); MEAN PLT VOLUME 9.2 fl (7.5-11.1); MONO % 11.8 % (3.8-10.2); NEUT % 56.8 % (42.8-82.8); PLATELET COUNT 189 10^3/uL (134-434); RBC 4.19 M/mm3 (3.60-5.2); RDW 13.8 % (11.6-15.6); WHITE BLOOD COUNT 5.1 K/mm3 (4.0-10.0)
[2024-06-07 08:52] LABS: POTASSIUM 3.9 mmol/L (3.5-5.1)
[2024-06-07 09:00] LABS: CALCIUM 8.9 mg/dL (8.5-10.1)
[2024-06-07 09:01] LABS: ALBUMIN 2.7 g/dl (3.4-5.0); BLOOD UREA NITROGEN 17.6 mg/dL (7-18)
[2024-06-07 09:04] LABS: CREATININE 0.8 mg/dL (0.55-1.3)
[2024-06-07 09:05] LABS: BILIRUBIN,TOTAL 0.3 mg/dL (0.2-1); TOT PROT 6.1 g/dl (6.4-8.2)
[2024-06-08] MEDS: PARoxetine HCL 10 MG TABLET PO SCH (10:06)
[2024-06-09 18:38] VITALS: PULSE 73
[2024-06-09 21:53] VITALS: BP 161/79; RESP 20; TEMP 97.7
== END 2024-06-09 23:00 | DRG 690 ==
LOC: JER 15:11 → JERBED 20:33 → J4W 06-02 02:39
PROVIDERS: ADMIT Internal Medicine; ATTEND Internal Medicine
DX: N39.0 Urinary tract infection, site not specified (principal); N17.9 Acute kidney failure, unspecified; R47.01 Aphasia; M50.00 Cervical disc disorder with myelopathy, unspecified cervical region; G82.20 Paraplegia, unspecified; G40.909 Epilepsy, unspecified, not intractable, without status epilepticus; E78.5 Hyperlipidemia, unspecified; E11.9 Type 2 diabetes mellitus without complications; E03.9 Hypothyroidism, unspecified; J45.909 Unspecified asthma, uncomplicated; R29.6 Repeated falls; I10 Essential (primary) hypertension; N31.9 Neuromuscular dysfunction of bladder, unspecified; R55 Syncope and collapse
CPT/HCPCS: 36415; 36600; 70450-TC; 70496-TC; 70498-TC; 71045-TC-FY; 80053; 80061; 80177; 80307; 81003; 82140; 82550; 82803; 82962; 83036; 83605; 84443; 84484; 85025; 85610; 85730; 86850; 86900; 86901; 87086; 87186; 93005; 93010; 93306-TC; 93880-TC; 97116-GP; 97163-GP; 99285-25

== ENCOUNTER 2024-09-19 12:07 | Emergency (ER) | payer OTHER ==
[2024-09-19 12:29] VITALS: TEMP 98.3; BMI 23.8
[2024-09-19 14:32] LABS: POTASSIUM 4.7 mmol/L (3.5-5.1)
[2024-09-19 14:34] LABS: CALCIUM 9.4 mg/dL (8.5-10.1)
[2024-09-19 14:35] LABS: ALBUMIN 3.4 g/dl (3.4-5.0); BLOOD UREA NITROGEN 32.8 mg/dL (7-18)
[2024-09-19 14:38] LABS: CREATININE 1.3 mg/dL (0.55-1.3)
[2024-09-19 14:39] LABS: BILIRUBIN,TOTAL 0.2 mg/dL (0.2-1)
[2024-09-19 14:40] LABS: TOT PROT 7.2 g/dl (6.4-8.2)
[2024-09-19 14:52] LABS: EPI CELLS >36 /uL (0-25.1); HYALINE CASTS 2 /uL (0-3.1); PH,URINE 5.5 (5.0-8.0); URINE APPEARANCE CLEAR; URINE BACTERIA 184 /uL (0-1359); URINE BILIRUBIN NEGATIVE (NEGATIVE); URINE COLOR YELLOW; URINE GLUCOSE (UA) NEGATIVE (NEGATIVE); URINE KETONE 1+ (NEGATIVE); URINE LEUK ESTERASE 1+ (NEGATIVE); URINE NITRITE NEGATIVE (NEGATIVE); URINE PROTEIN 1+ (NEGATIVE); URINE RBC 14 /uL (0-23.9); URINE UROBILINOGEN 0.2 mg/dL (0.2-1.0); URINE WBC 167 /uL (0-25.8)
[2024-09-19] MEDS ORDERED: CEPHALEXIN MONOHYDRATE 500 MG CAPSULE (UD) ONE (15:40)
[2024-09-19] MEDS: CEPHALEXIN MONOHYDRATE 500 MG CAPSULE (UD) PO ONE (15:42)
[2024-09-19 16:52] VITALS: BP 177/73; PULSE 87; RESP 20
[2024-09-19 18:07] LABS: HIV INTERPRETATION NEGATIVE (NEGATIVE)
== END 2024-09-19 16:52 | disposition home or self-care (01) ==
LOC: JER 12:07
DX: N39.0 Urinary tract infection, site not specified (principal); T83.091A Other mechanical complication of indwelling urethral catheter, initial encounter
CPT/HCPCS: 36415; 80053; 81003; 86803; 87086; 87389; 99283-25

== ENCOUNTER 2024-09-23 19:54 | Observation (INO) | payer OTHER ==
[2024-09-23 21:52] LABS: VENOUS PCO2 41.7 mmHg (38-52); VENOUS PH 7.437 (7.310-7.410)
[2024-09-23 21:56] LABS: BASO % 0.7 % (0-2.0); HEMATOCRIT 34.4 % (32.4-45.2); HEMOGLOBIN 11.6 GM/dL (10.7-15.3); LYMPH % 28.1 % (8-40); MCH 28.8 pg (25.7-33.7); MCHC 33.6 g/dl (32.0-36.0); MEAN CELL VOLUME 85.9 fl (80-96); MONO % 13.5 % (3.8-10.2); NEUT % 53.7 % (42.8-82.8); RBC 4.01 M/mm3 (3.60-5.2); RDW 14.3 % (11.6-15.6); WHITE BLOOD COUNT 4.7 K/mm3 (4.0-10.0)
[2024-09-23 22:08] LABS: PROTHROMBIN TIME (PATIENT) 11.3 SEC (9.7-13.0)
[2024-09-23 22:10] LABS: ACTIVATED PTT 31.9 SECONDS (25.2-36.5)
[2024-09-23 22:14] LABS: CALCIUM 8.8 mg/dL (8.5-10.1)
[2024-09-23 22:15] LABS: ALBUMIN 2.9 g/dl (3.4-5.0); BLOOD UREA NITROGEN 14.5 mg/dL (7-18)
[2024-09-23 22:18] LABS: CREATININE 0.7 mg/dL (0.55-1.3)
[2024-09-23 22:19] LABS: BILIRUBIN,TOTAL 0.2 mg/dL (0.2-1); TOT PROT 5.9 g/dl (6.4-8.2)
[2024-09-24 02:06] LABS: URINE APPEARANCE CLEAR; URINE COLOR YELLOW
[2024-09-24 02:07] LABS: URINE BILIRUBIN NEGATIVE (NEGATIVE); URINE GLUCOSE (UA) NEGATIVE (NEGATIVE); URINE KETONE TRACE (NEGATIVE)
[2024-09-24 02:08] LABS: PH,URINE 7.5 (5.0-8.0); URINE LEUK ESTERASE TRACE (NEGATIVE); URINE NITRITE NEGATIVE (NEGATIVE); URINE PROTEIN NEGATIVE (NEGATIVE); URINE UROBILINOGEN 0.2 mg/dL (0.2-1.0)
[2024-09-24 02:09] LABS: EPI CELLS 141.1 /uL (0-25.1); URINE RBC 6.6 /uL (0-23.9); URINE WBC 65.7 /uL (0-25.8)
[2024-09-24 02:10] LABS: HYALINE CASTS 7.81 /uL (0-3.1); URINE BACTERIA 8.1 /uL (0-1359)
[2024-09-24] MEDS: LACTATED RINGERS SOLUTION 1000 ML INFUS.BAG IV ONE (07:02)
[2024-09-24 07:44] LABS: PHOSPHOROUS 3.2 mg/dL (2.5-4.9)
[2024-09-24 07:49] LABS: MAGNESIUM 1.2 mg/dL (1.8-2.4)
[2024-09-24] MEDS ORDERED: MAGNESIUM SULFATE IN WATER 2 GM/50 ML IVPB IVPB ONE (08:32)
[2024-09-24] MEDS: MAGNESIUM SULF 50% (8.12 MEQ/2 ML-1 GM VIAL) IVPB ONE (08:38)
[2024-09-24] MEDS: levETIRAcetam 500 MG TABLET (FP) PO SCH (11:13)
[2024-09-24] MEDS: DIVALPROEX NA *ER* EXTEND REL 500 MG TABLET.SA (FP) PO SCH (11:13)
[2024-09-24 12:13] VITALS: BMI 21.5
[2024-09-24] MEDS: SENNOSIDES 8.6MG TABLET (FP) PO PRN (13:05)
[2024-09-24] MEDS: PRAMIPEXOLE DIHYDROCHLORIDE 0.125 MG TABLET PO SCH (15:47)
[2024-09-24] MEDS: DEXTROSE 5%-0.45% SALINE 1,000 ML IV SCH (17:22)
[2024-09-24] MEDS: POLYETHYLENE GLYCOL (HEALTHYLAX) 3350 17 GM PACKET PO SCH (21:08)
[2024-09-24] MEDS: ATORVASTATIN CA 40 MG TABLET (FP) PO SCH (21:08)
[2024-09-24] MEDS: PREGABALIN 75 MG CAPSULE PO SCH (21:08)
[2024-09-24] MEDS: HEPARIN NA (PORCINE) 5,000 UNITS/ML 1ML VIAL SQ SCH (21:08)
[2024-09-24] MEDS: PRAMIPEXOLE DIHYDROCHLORIDE 0.25 MG TABLET PO SCH (21:08)
[2024-09-25 07:43] LABS: BASO % 0.6 % (0-2.0); EOS % 4.4 % (0-4.5); HEMATOCRIT 32.8 % (32.4-45.2); HEMOGLOBIN 10.8 GM/dL (10.7-15.3); LYMPH % 25.5 % (8-40); MCH 28.7 pg (25.7-33.7); MEAN PLT VOLUME 8.8 fl (7.5-11.1); MONO % 17.3 % (3.8-10.2); NEUT % 52.2 % (42.8-82.8); PLATELET COUNT 101 10^3/uL (134-434); RBC 3.77 M/mm3 (3.60-5.2); RDW 13.8 % (11.6-15.6)
[2024-09-25 08:31] LABS: BLOOD UREA NITROGEN 19.1 mg/dL (7-18); CALCIUM 8.7 mg/dL (8.5-10.1)
[2024-09-25 08:32] LABS: ALBUMIN 2.7 g/dl (3.4-5.0)
[2024-09-25 08:34] LABS: CREATININE 0.8 mg/dL (0.55-1.3)
[2024-09-25 08:36] LABS: BILIRUBIN,TOTAL 0.2 mg/dL (0.2-1); TOT PROT 5.6 g/dl (6.4-8.2)
[2024-09-25] MEDS: EZETIMIBE 10 MG TABLET (FP) PO SCH (09:37)
[2024-09-25] MEDS: THIAMINE 100 MG TABLET PO SCH (09:38)
[2024-09-25] MEDS: LISINOPRIL 5 MG TABLET PO SCH (09:38)
[2024-09-25] MEDS: DOCUSATE SODIUM 100 MG CAPSULE (FP) PO SCH (21:14)
[2024-09-26 08:42] LABS: BASO % 0.4 % (0-2.0); EOS % 4.4 % (0-4.5); HEMATOCRIT 31.9 % (32.4-45.2); HEMOGLOBIN 10.3 GM/dL (10.7-15.3); LYMPH % 36.4 % (8-40); MCH 28.6 pg (25.7-33.7); MCHC 32.4 g/dl (32.0-36.0); MEAN CELL VOLUME 88.4 fl (80-96); MEAN PLT VOLUME 9.2 fl (7.5-11.1); MONO % 17.1 % (3.8-10.2); NEUT % 41.7 % (42.8-82.8); PLATELET COUNT 108 10^3/uL (134-434); RBC 3.61 M/mm3 (3.60-5.2); RDW 14.2 % (11.6-15.6); WHITE BLOOD COUNT 4.7 K/mm3 (4.0-10.0)
[2024-09-26 08:59] LABS: ALBUMIN 2.6 g/dl (3.4-5.0); CALCIUM 8.4 mg/dL (8.5-10.1)
[2024-09-26 09:00] LABS: BLOOD UREA NITROGEN 13.7 mg/dL (7-18)
[2024-09-26 09:03] LABS: CREATININE 0.9 mg/dL (0.55-1.3)
[2024-09-26 09:04] LABS: BILIRUBIN,TOTAL 0.3 mg/dL (0.2-1); TOT PROT 5.4 g/dl (6.4-8.2)
[2024-09-27 15:48] VITALS: RESP 18
[2024-09-27] MEDS: LACTULOSE 20 GM/30 ML UDC (FOR ORAL USE ONLY) PO SCH (21:12)
[2024-09-28] MEDS: ACETAMINOPHEN 500 MG TABLET (FP) PO ONE (06:14)
[2024-09-28 09:54] LABS: BASO % 0.6 % (0-2.0); EOS % 3.2 % (0-4.5); HEMOGLOBIN 10.7 GM/dL (10.7-15.3); LYMPH % 31.9 % (8-40); MCH 28.7 pg (25.7-33.7); MCHC 32.6 g/dl (32.0-36.0); MEAN CELL VOLUME 88.3 fl (80-96); MEAN PLT VOLUME 9.1 fl (7.5-11.1); MONO % 16.6 % (3.8-10.2); NEUT % 47.7 % (42.8-82.8); PLATELET COUNT 129 10^3/uL (134-434); RBC 3.74 M/mm3 (3.60-5.2); RDW 14.4 % (11.6-15.6); WHITE BLOOD COUNT 5.2 K/mm3 (4.0-10.0)
[2024-09-28 10:15] LABS: ALBUMIN 2.6 g/dl (3.4-5.0); BLOOD UREA NITROGEN 10.5 mg/dL (7-18); CALCIUM 8.7 mg/dL (8.5-10.1)
[2024-09-28 10:19] LABS: CREATININE 0.8 mg/dL (0.55-1.3)
[2024-09-28 10:20] LABS: BILIRUBIN,TOTAL 0.2 mg/dL (0.2-1); TOT PROT 5.6 g/dl (6.4-8.2)
[2024-09-29 06:52] VITALS: PULSE 84
[2024-09-29 08:50] VITALS: BP 149/69; TEMP 98.2
== END 2024-09-29 12:43 | disposition home or self-care (01) ==
LOC: JER 19:54 → J7W 09-24 09:00 → UNDOADMOB 09-24 09:00 → INTOOBSV 09-24 09:00 → J7W 09-24 10:38
PROVIDERS: ADMIT Internal Medicine; ATTEND Internal Medicine
PROC: 3E023GC Introduction of Other Therapeutic Substance into Muscle, Percutaneous Approach (ICD-10-PCS; principal; 2024-09-24)
PROC: 3E0337Z Introduction of Electrolytic and Water Balance Substance into Peripheral Vein, Percutaneous Approach (ICD-10-PCS; 2024-09-24)
DX: R41.82 Altered mental status, unspecified (principal); K59.09 Other constipation; I10 Essential (primary) hypertension; R53.1 Weakness; E78.5 Hyperlipidemia, unspecified; R62.7 Adult failure to thrive; E83.42 Hypomagnesemia; R29.6 Repeated falls; R56.9 Unspecified convulsions; G95.9 Disease of spinal cord, unspecified; J45.909 Unspecified asthma, uncomplicated; N31.9 Neuromuscular dysfunction of bladder, unspecified; E11.9 Type 2 diabetes mellitus without complications; Z87.891 Personal history of nicotine dependence; Z91.018 Allergy to other foods; Z88.5 Allergy status to narcotic agent; Z91.09 Other allergy status, other than to drugs and biological substances
CPT/HCPCS: 0241U-QW; 36415; 70450-TC; 71045-TC-FY; 74021-TC-FY; 74177-TC; 80053; 81003; 82803; 83036; 83605; 83735; 84100; 84484; 85025; 85610; 85730; 86850; 86900; 86901; 87086; 87186; 93005; 93010; 96361; 96372; 96375; 97116-GP; 97161-GP; 99291; G0378; J1644

== ENCOUNTER 2024-10-29 12:05 | Emergency (ER) | payer OTHER ==
[2024-10-29 13:09] VITALS: BP 130/78; PULSE 77; RESP 17; TEMP 98.3; BMI 24.3
[2024-10-29] MEDS ORDERED: ACETAMINOPHEN 325 MG TABLET (FP) ONE (15:11)
[2024-10-29] MEDS: ACETAMINOPHEN 325 MG TABLET (FP) PO ONE (15:26)
[2024-10-29 15:46] LABS: EPI CELLS >36 /uL (0-25.1); HYALINE CASTS 9 /uL (0-3.1); URINE APPEARANCE CLEAR; URINE BACTERIA 86 /uL (0-1359); URINE BILIRUBIN NEGATIVE (NEGATIVE); URINE COLOR YELLOW; URINE GLUCOSE (UA) NEGATIVE (NEGATIVE); URINE KETONE 1+ (NEGATIVE); URINE LEUK ESTERASE 1+ (NEGATIVE); URINE NITRITE NEGATIVE (NEGATIVE); URINE PROTEIN 2+ (NEGATIVE); URINE RBC 17 /uL (0-23.9); URINE WBC 322 /uL (0-25.8)
[2024-10-29] MEDS: CEFPODOXIME PROXETIL 100 MG TABLET PO ONE (16:25)
== END 2024-10-29 16:40 | disposition home or self-care (01) ==
LOC: JER 12:05
PROC: 0T9B70Z Drainage of Bladder with Drainage Device, Via Natural or Artificial Opening (ICD-10-PCS; principal; 2024-10-29)
DX: T83.9XXA Unspecified complication of genitourinary prosthetic device, implant and graft, initial encounter (principal); N39.0 Urinary tract infection, site not specified; R10.30 Lower abdominal pain, unspecified
CPT/HCPCS: 51702; 81003; 87086; 99283-25

== ENCOUNTER 2025-05-09 03:12 | Emergency (ER) | payer OTHER ==
[2025-05-09 03:51] VITALS: BP 197/87; PULSE 68; RESP 16; TEMP 98.1; BMI 21.2
[2025-05-09 05:11] LABS: EPI CELLS 6 /uL (0-25.1); HYALINE CASTS 0 /uL (0-3.1); URINE APPEARANCE CLEAR; URINE BACTERIA 339 /uL (0-1359); URINE BILIRUBIN NEGATIVE (NEGATIVE); URINE COLOR YELLOW; URINE GLUCOSE (UA) NEGATIVE (NEGATIVE); URINE KETONE NEGATIVE (NEGATIVE); URINE LEUK ESTERASE 1+ (NEGATIVE); URINE NITRITE NEGATIVE (NEGATIVE); URINE PROTEIN NEGATIVE (NEGATIVE); URINE RBC 9 /uL (0-23.9); URINE UROBILINOGEN 0.2 mg/dL (0.2-1.0); URINE WBC 97 /uL (0-25.8)
[2025-05-09] MEDS ORDERED: ACETAMINOPHEN 325 MG TABLET (FP) ONE (05:32)
[2025-05-09] MEDS: ACETAMINOPHEN 325 MG TABLET (FP) PO ONE (05:37)
== END 2025-05-09 05:38 | disposition home or self-care (01) ==
LOC: JER 03:12
PROC: 0T2BX0Z Change Drainage Device in Bladder, External Approach (ICD-10-PCS; principal; 2025-05-09)
DX: K56.41 Fecal impaction (principal); K62.89 Other specified diseases of anus and rectum; R10.32 Left lower quadrant pain; K64.9 Unspecified hemorrhoids; R14.0 Abdominal distension (gaseous); R33.9 Retention of urine, unspecified
CPT/HCPCS: 51702; 81003; 87086; 99283-25